=== PATIENT | male | born 1955 | race Caucasian/White ===

== ENCOUNTER 2024-09-22 10:00 | Emergency (ER) | payer MEDICARE, MEDICAID, SELFPAY ==
[2024-09-22 10:02] VITALS: BP 148/84; PULSE 74; TEMP 36.7; O2SAT 94; BMI 26.6
--- NOTE | 2024-09-22 10:04 | ED.GENADUL1 ---
HPI HPI - General Adult General Chief complaint: Fall Stated complaint: OTHER Time Seen by Provider: 09/22/24 10:01 History of Present Illness HPI narrative: 69-year-old male presents from shelter by ambulance for evaluation after a fall. He reportedly fell out of his wheelchair onto grass. He does not seem to have any complaints at all. No further history is obtainable. Related Data Home Medications ?Medication ?Instructions ?Recorded ?Confirmed finasteride 5 mg tablet 5 mg PO DAILY 09/22/24 09/22/24 fluphenazine HCl 5 mg tablet 5 mg PO DAILY 09/22/24 09/22/24 lamotrigine 25 mg tablet 25 mg PO Q12H 09/22/24 09/22/24 lorazepam 0.5 mg tablet 0.5 mg PO DAILY 09/22/24 09/22/24 losartan 50 mg tablet 50 mg PO DAILY 09/22/24 09/22/24 lovastatin 20 mg tablet 20 mg PO DAILY 09/22/24 09/22/24 metoprolol succinate 50 mg 50 mg PO DAILY 09/22/24 09/22/24 tablet,extended release 24 hr omeprazole 20 mg capsule,delayed 20 mg PO DAILY 09/22/24 09/22/24 release polyethylene glycol 3350 17 17 g PO DAILY 09/22/24 09/22/24 gram/dose oral powder (ClearLax) quetiapine 50 mg tablet 50 mg PO DAILY 09/22/24 09/22/24 tamsulosin 0.4 mg capsule 0.4 mg PO BID 09/22/24 09/22/24 Opioid HPI Opioid Management Most Recent Opioid Data: No Data to Display Review of Systems ROS Narrative Not obtainable, psychiatric disorder PFSH [facility] Medical History (Updated 09/22/24 @ 10:23 by Sami Gomez MD) Dermatitis ?L30.9 - Dermatitis, unspecified (ICD-10) Kyphoscoliosis ?M41.9 - Scoliosis, unspecified (ICD-10) Developmental disorder ?F89 - Unspecified disorder of psychological development (ICD-10) Social History Little interest or pleasure in doing things: not at all Feeling down, depressed, or hopeless: not at all Exam Narrative Exam Narrative: Nurses note and vital signs reviewed and patient is not hypoxic. General: The patient appears well and in no apparent distress. Patient is resting comfortably on cart. Skin: Warm, dry, no pallor noted. There is no rash noted. Head: Normocephalic, atraumatic Eye: Normal conjunctiva, no drainage Ears, Nose, Mouth, and Throat: oral mucosa is moist. Nares patent. Cardiovascular: Regular Rate and Rhythm Respiratory: Patient is in no distress, no accessory muscle use, lungs are clear to auscultation, no wheezing, rales or rhonchi Back: non-tender GI: Soft and nontender Musculoskeletal: Tiny abrasion present on the anterior right knee which is old and healing. He has abrasions on the dorsum of his right hand at the base of his 4th and 5th fingers which appear healing as well and not fresh. Neurological: Awake and alert Psychiatric: Cooperative Constitutional Vital Signs, click to edit/add: Last Vital Signs Temp 98.0 F 09/22/24 10:02 Pulse 74 09/22/24 10:02 Resp 20 09/22/24 10:02 BP 148/84 H 09/22/24 10:02 Pulse Ox 94 L 09/22/24 10:02 O2 Del Method Room Air 09/22/24 10:02 Course Vital Signs Vital signs: Vital Signs Temperature 98.0 F 09/22/24 10:02 Pulse Rate 74 09/22/24 10:02 Respiratory Rate 20 09/22/24 10:02 Blood Pressure 148/84 H 09/22/24 10:02 Pulse Oximetry 94 L 09/22/24 10:02 Oxygen Delivery Method Room Air 09/22/24 10:02 Temperature 98.0 F 09/22/24 10:02 Pulse Rate 74 09/22/24 10:02 Respiratory Rate 20 09/22/24 10:02 Blood Pressure 148/84 H 09/22/24 10:02 Pulse Oximetry 94 L 09/22/24 10:02 Oxygen Delivery Method Room Air 09/22/24 10:02 Medical Decision Making MDM Narrative Medical decision making narrative: The patient has no significant injuries from his fall. Findings are discussed with his caregiver and he is able to be released. Differential Diagnosis Differential Diagnosis: Fall Discharge Plan Discharge Chief Complaint: Fall Clinical Impression: Fall Patient Disposition: Home, Self-Care Time of Disposition Decision: 10:23 Condition: Good Mode of Transportation: Private Vehicle Prescriptions / Home Meds: No Action finasteride 5 mg tablet 5 mg PO DAILY fluphenazine HCl 5 mg tablet 5 mg PO DAILY Rx Instructions: at HS lamotrigine 25 mg tablet 25 mg PO Q12H lorazepam 0.5 mg tablet 0.5 mg PO DAILY Rx Instructions: QAM losartan 50 mg tablet 50 mg PO DAILY metoprolol succinate 50 mg tablet extended release 24 hr 50 mg PO DAILY omeprazole 20 mg capsule,delayed release(DR/EC) 20 mg PO DAILY quetiapine 50 mg tablet 50 mg PO DAILY Rx Instructions: @ HS tamsulosin 0.4 mg capsule 0.4 mg PO BID polyethylene glycol 3350 [ClearLax] 17 gram/dose powder 17 g PO DAILY lovastatin 20 mg tablet 20 mg PO DAILY Print Language: Scottish Instructions: Fall Prevention for Older Adults (ED) Referrals: Roland Mott DO [Primary Care Provider] - 1 week
--- NOTE | 2024-09-22 10:12 | PC.NURSE ---
Awake and alert. Patient placed in gown on arrival. No injury noted. Patient denies any pain or injury.
== END 2024-09-22 10:47 | disposition home or self-care (01) ==
PROVIDERS: Emergency Provider Emergency Medicine; PCP Family Medicine
DX: Z04.3 Encounter for examination and observation following other accident (principal); W05.0XXA Fall from non-moving wheelchair, initial encounter
CPT/HCPCS: 99283

== ENCOUNTER 2025-05-31 07:14 | Emergency (ER) | payer MEDICARE, MEDICAID, SELFPAY ==
[2025-05-31] VITALS (30 sets, daily range): BP systolic 97–118; BP diastolic 65–81; PULSE 76–115; TEMP 37.6; O2SAT 92–98; BMI 28.3
--- NOTE | 2025-05-31 07:30 | ECG_ITS ---
[facility] Test Date: 2025-05-31 Pat Name: NALDO MACK Department: Room: - Gender: Male Status Controller: : 1955 Requested By: Order Number: [id number] Reading MD: ISIS TEJEDA M.D. Measurements Intervals [place] Rate: 89 P: 66 DE: 166 QRS: 59 QRSD: 80 T: 19 QT: 344 QTc: 390 Interpretive Statements 1100 Sinus rhythm 1574 with frequent ventricular premature complexes ARTIFACT IN LEAD(S) 9140 abnormal rhythm ECG No previous ECG available for comparison Electronically Signed On 05-31-2025 14:23:34 EST by ISIS TEJEDA M.D.
--- NOTE | 2025-05-31 07:31 | ED.GENADUL1 ---
HPI HPI - General Adult General Chief complaint: Abdominal Pain Stated complaint: POSSIBLE GI BLEED Time Seen by Provider: 05/31/25 07:23 Source: medical record Mode of arrival: ambulance Limitations: language barrier Limitations comment: Thick speech. MRDD History of Present Illness HPI narrative: 69-year-old male presents from a facility for possible GI bleed. He is unable to provide us any history, he has a history of MRDD. Paramedics reported that they were told that he had dark brown emesis yesterday and has had some dark stools. He does not seem to be on any blood thinners. He does not seem to be having any pain. No further history is obtainable Related Data Home Medications ?Medication ?Instructions ?Recorded ?Confirmed finasteride 5 mg tablet 5 mg PO DAILY 09/22/24 09/22/24 fluphenazine HCl 5 mg tablet 5 mg PO DAILY 09/22/24 09/22/24 lamotrigine 25 mg tablet 25 mg PO Q12H 09/22/24 09/22/24 lorazepam 0.5 mg tablet 0.5 mg PO DAILY 09/22/24 09/22/24 losartan 50 mg tablet 50 mg PO DAILY 09/22/24 09/22/24 lovastatin 20 mg tablet 20 mg PO DAILY 09/22/24 09/22/24 metoprolol succinate 50 mg 50 mg PO DAILY 09/22/24 09/22/24 tablet,extended release 24 hr omeprazole 20 mg capsule,delayed 20 mg PO DAILY 09/22/24 09/22/24 release polyethylene glycol 3350 17 17 g PO DAILY 09/22/24 09/22/24 gram/dose oral powder (ClearLax) quetiapine 50 mg tablet 50 mg PO DAILY 09/22/24 09/22/24 tamsulosin 0.4 mg capsule 0.4 mg PO BID 09/22/24 09/22/24 Allergies Allergy/AdvReac Type Severity Reaction Status Date / Time No Known Drug Allergies Allergy Verified 05/31/25 07:17 Review of Systems ROS Narrative Not obtainable, MRDD PFSH [facility] Medical History (Updated 05/31/25 @ 10:30 by Sami Gomez MD) BPH (benign prostatic hyperplasia) ?N40.0 - Benign prostatic hyperplasia without lower urinary tract symptoms (ICD-10) Spinal stenosis ?M48.00 - Spinal stenosis, site unspecified (ICD-10) Congenital hip dysplasia ?Q65.89 - Other specified congenital deformities of hip (ICD-10) Hydronephrosis ?N13.30 - Unspecified hydronephrosis (ICD-10) Neurogenic bladder ?N31.9 - Neuromuscular dysfunction of bladder, unspecified (ICD-10) Urinary retention ?R33.9 - Retention of urine, unspecified (ICD-10) Anxiety ?F41.9 - Anxiety disorder, unspecified (ICD-10) Lordosis of lumbar region ?M40.56 - Lordosis, unspecified, lumbar region (ICD-10) Hyperlipemia ?E78.5 - Hyperlipidemia, unspecified (ICD-10) FH: total knee replacement ?Z82.69 - Family history of other diseases of the musculoskeletal system and connective tissue (ICD-10) GERD (gastroesophageal reflux disease) ?K21.9 - Gastro-esophageal reflux disease without esophagitis (ICD-10) Tardive dyskinesia ?G24.01 - Drug induced subacute dyskinesia (ICD-10) DJD (degenerative joint disease) ?M19.90 - Unspecified osteoarthritis, unspecified site (ICD-10) Arthritis ?M19.90 - Unspecified osteoarthritis, unspecified site (ICD-10) Schizophrenic disorder ?F20.9 - Schizophrenia, unspecified (ICD-10) Dermatitis ?L30.9 - Dermatitis, unspecified (ICD-10) Kyphoscoliosis ?M41.9 - Scoliosis, unspecified (ICD-10) Developmental disorder ?F89 - Unspecified disorder of psychological development (ICD-10) Social History Little interest or pleasure in doing things: not at all Feeling down, depressed, or hopeless: not at all Exam Narrative Exam Narrative: Nurses note and vital signs reviewed General:The patient appears in no acute distress. He is sitting upright and smiles and is interactive. Skin:Warm, dry, no pallor noted.There is no rash noted. Head:Normocephalic, atraumatic Eye: Normal conjunctiva, no drainage Ears, Nose, Mouth, and Throat: oral mucosa is moist. Nares patent. Cardiovascular:Regular Rate and Rhythm Respiratory:Patient is in no distress, no accessory muscle use, lungs are clear to auscultation, no wheezing, rales or rhonchi Back:non-tender, no CVA tenderness bilaterally to percussion. GI: Soft and no apparent tenderness on palpation Musculoskeletal: The patient has no evidence of calf tenderness, no pitting edema, symmetrical pulses noted bilaterally Neurological: He is awake and alert. He smiles and is interactive. He moves all 4 extremities. Psychiatric:Cooperative Constitutional Vital Signs, click to edit/add: Last Vital Signs Temp 99.6 F 05/31/25 07:17 Pulse 82 05/31/25 09:20 Resp 22 H 05/31/25 09:20 BP 101/74 05/31/25 09:00 Pulse Ox 96 05/31/25 09:20 O2 Del Method Nasal Cannula 05/31/25 07:17 O2 Flow Rate 3 05/31/25 07:17 Course Vital Signs Vital signs: Vital Signs Temperature 99.6 F 05/31/25 07:17 Pulse Rate 115 H 05/31/25 07:17 Respiratory Rate 28 H 05/31/25 07:17 Blood Pressure 107/76 05/31/25 07:17 Pulse Oximetry 92 L 05/31/25 07:17 Oxygen Delivery Method Nasal Cannula 05/31/25 07:17 Oxygen Delivery Flow Rate 3 05/31/25 07:17 Temperature 99.6 F 05/31/25 07:17 Pulse Rate 82 05/31/25 09:20 Respiratory Rate 22 H 05/31/25 09:20 Blood Pressure 101/74 05/31/25 09:00 Pulse Oximetry 96 05/31/25 09:20 Oxygen Delivery Method Nasal Cannula 05/31/25 07:17 Oxygen Delivery Flow Rate 3 05/31/25 07:17 Medical Decision Making MDM Narrative Medical decision making narrative: There is no evidence of GI bleed. His stool was negative for blood and CT of the abdomen is negative. The rest of his workup as well is normal and he is able to be released back to his facility. Differential Diagnosis Differential Diagnosis: Upper GI bleed, lower GI bleed Lab Data Lab results reviewed: Yes I reviewed the patient's lab results Labs: Lab Results 05/31/25 05/31/25 05/31/25 Range/Units 07:36 07:41 09:56 WBC 9.4 (4.0-11.0) 10^3/uL RBC 3.88 L (4.70-6.10) 10^6/uL Hgb 11.3 L (14.0-18.0) g/dL Hct 34.7 L (42.0-54.0) % MCV 89.4 (80.0-94.0) fL MCH 29.1 (25.9-34.0) pg MCHC 32.6 (29.9-35.2) g/dL RDW 13.7 (11.0-15.0) % Plt Count 153 (150-450) 10^3/uL MPV 11.4 (9.5-13.5) fL Seg Neuts % (Manual) 87.0 H (43.0-75.0) Lymphocytes % (Manual) 4.0 L (20.5-60.0) % Atypical Lymphs % (Man) 1.0 % Monocytes % (Manual) 8.0 (1.7-12.0) % Eosinophils % (Manual) 0.0 L (0.9-7.0) % Basophils % (Manual) 0.0 L (0.2-2.0) % Neutrophils # (Manual) 8.17 H (1.4-6.5) 10^3/uL Lymphocytes # (Manual) 0.37 L (1.20-3.80) 10^3/uL Abs Atypical Lymphs Man 0.09 Monocytes # (Manual) 0.75 (0.30-0.80) 10^3/uL Eosinophils # (Manual) 0.00 (0.00-0.70) 10^3/uL Basophils # (Manual) 0.00 (0.00-0.10) 10^3/uL Sodium 137 (136-145) mmol/L Potassium 3.9 (3.5-5.1) mmol/L Chloride 102 (98-107) mmol/L Carbon Dioxide 28.9 (21.0-32.0) mmol/L Anion Gap 10.0 BUN 32.0 H (7.0-18.0) mg/dL Creatinine 1.07 (0.70-1.30) mg/dL Est GFR ( Amer) >60 (>=60 mL/min/1.73m^2) Est GFR (Non-Af Amer) >60 (>=60 mL/min/1.73m^2) BUN/Creatinine Ratio 29.9 Glucose 115 H (74-106) mg/dL Calcium 8.1 L (8.5-10.1) mg/dL Total Bilirubin 0.4 (0.2-1.0) mg/dL Direct Bilirubin 0.1 (0.0-0.2) mg/dL AST 26 (15-37) U/L ALT 30 (16-63) U/L Alkaline Phosphatase 172 H (46-116) U/L Total Protein 6.7 (6.4-8.2) g/dL Albumin 3.4 (3.4-5.0) g/dL Globulin 3.3 g/dL Albumin/Globulin Ratio 1.0 Stool Occult Blood Negative Influenza Type A Ag Negative Influenza Type B Ag Negative SARS-CoV-2 Ag (CV2AG) Negative (NEGATIVE) Imaging Data CT scan - abdomen: Radiologist's impression: ITS Impressions Abdomen/Pelvis CTA 05/31/25 08:53 IMPRESSION: NO BOWEL OR URINARY TRACT OBSTRUCTION. GASTRIC DISTENTION. BORDERLINE RECTOSIGMOID WALL THICKENING. THIS MAY RELATE TO INCOMPLETE DISTENTION. SLIGHT URINARY BLADDER WALL THICKENING. CORRELATION IS RECOMMENDED TO EXCLUDE CYSTITIS. NO EVIDENCE OF ACTIVE GI BLEED. CHRONIC APPEARING BONY CHANGES. Impression dictated by: India Villa M.D. 05/31/2025 9:41 AM Dictation Location: [employer] Electronically authenticated by: [id number] Y Date: 05/31/2025 09:41 Chest X-Ray 05/31/25 08:53 IMPRESSION: NO ACUTE FINDINGS Impression dictated by: India Villa M.D. 05/31/2025 9:22 AM Dictation Location: [employer] Electronically authenticated by: [id number] Y Date: 05/31/2025 09:22 ECG Data Attestation: I personally reviewed and interpreted this ECG as follows: (EKG on my interpretation shows sinus rhythm with PVCs.) Discharge Plan Discharge Chief Complaint: Abdominal Pain Clinical Impression: No problem, feared complaint unfounded Patient Disposition: Home, Self-Care Time of Disposition Decision: 10:30 Condition: Good Mode of Transportation: Private Vehicle Prescriptions / Home Meds: No Action finasteride 5 mg tablet 5 mg PO DAILY fluphenazine HCl 5 mg tablet 5 mg PO DAILY Rx Instructions: at HS lamotrigine 25 mg tablet 25 mg PO Q12H lorazepam 0.5 mg tablet 0.5 mg PO DAILY Rx Instructions: QAM losartan 50 mg tablet 50 mg PO DAILY metoprolol succinate 50 mg tablet extended release 24 hr 50 mg PO DAILY omeprazole 20 mg capsule,delayed release(DR/EC) 20 mg PO DAILY quetiapine 50 mg tablet 50 mg PO DAILY Rx Instructions: @ HS tamsulosin 0.4 mg capsule 0.4 mg PO BID polyethylene glycol 3350 [ClearLax] 17 gram/dose powder 17 g PO DAILY lovastatin 20 mg tablet 20 mg PO DAILY Print Language: Sammarinese Instructions: Normal Exam (ED) Referrals: Roland Mott DO [Primary Care Provider] - 1 week
[2025-05-31 07:53] LABS: Hematocrit 34.7 % (42.0-54.0); Hemoglobin 11.3 g/dL (14.0-18.0); Mean Corpuscular HGB Conc 32.6 g/dL (29.9-35.2); Mean Corpuscular Hemoglobin 29.1 pg (25.9-34.0); Mean Corpuscular Volume 89.4 fL (80.0-94.0); Platelet Count 153 10^3/uL (150-450); Red Blood Count 3.88 10^6/uL (4.70-6.10); White Blood Count 9.4 10^3/uL (4.0-11.0)
--- OUTSIDE RECORDS SUMMARY | 2025-05-31 07:53 | XMS_ITS | Clinical Summary ---
Author Organization [facility] Address [id number] [address] [place] [address] Care Team Providers Care Process Supervisor Name Role Phone Roland Mott Primary Care Provider [phone] Allergies No known active allergies Medications MedicationSigDispense QuantityRefillsLast FilledStart DateEnd DateStatus finasteride (PROSCAR) 5 mg tablet Take 1 tablet (5 mg total) by mouth in the morning.Active lamoTRIgine (LaMICtal) 25 mg tablet Take 1 tablet (25 mg total) by mouth in the morning and 1 tablet (25 mg total) before bedtime.Active lovastatin (MEVACOR) 20 mg tablet Take 1 tablet (20 mg total) by mouth nightly.Active omeprazole (PriLOSEC) 20 mg capsule Take 1 capsule (20 mg total) by mouth in the morning.Active tamsulosin (FLOMAX) 0.4 mg capsule,extended release 24hr Take 1 capsule (0.4 mg total) by mouth in the morning and 1 capsule (0.4 mg total) before bedtime.Active HYDROcodone-acetaminophen (NORCO) 5-325 mg per tablet Take 1 tablet by mouth every 6 (six) hours as needed for pain.Active ondansetron (ZOFRAN) 4 mg tablet Take 1 tablet (4 mg total) by mouth every 8 (eight) hours as needed for nausea or vomiting for up to 12 doses. 12 tablet Active naproxen sodium (ALEVE) 220 mg tablet Take 1 tablet (220 mg total) by mouth in the morning and 1 tablet (220 mg total) in the evening. Take with meals.Active fluPHENAZine (PROLIXIN) 5 mg tablet Take 1 tablet (5 mg total) by mouth once daily at bedtime.Active QUEtiapine (SEROquel) 25 mg tablet Take 1.5 tablets (37.5 mg total) by mouth nightly.Active polyethylene glycol (GLYCOLAX) 17 gram packet Take 17 g by mouth in the morning.Active acetaminophen (TYLENOL) 325 mg tablet Take 2 tablets (650 mg total) by mouth every 6 (six) hours as needed for pain. Active chlorhexidine (PERIDEX) 0.12 % solution Apply 15 mL to the mouth or throat 2 (two) times a day. 120 mL 01/03/2021ctive Additional Information Patient taking differently:15 mL mouth/throat 2 times daily,Do not swallow, Reported on 04/03/2023 hypromellose (NATURES TEARS) drops Administer 1 drop to both eyes 2 (two) times a day as needed for dry eyes. 01/03/2021ctive Additional Information Patient not taking.Reported on 04/17/2023 docusate (COLACE) 50 mg/5 mL liquid Use as ear drops to soften excessive cerumen then irrigate as needed for wax build up. 100 mL 01/03/2021ctive alum-mag hydroxide-simeth 225-200-25 mg/5 mL suspension Take 30 mL by mouth daily as needed (upset stomach).ctive LORazepam (ATIVAN) 0.5 mg tablet Indications:AnxietyTake 1 tablet (0.5 mg total) by mouth every morning before breakfast. 30 tablet ctive dextromethorphan polistirex (DELSYM) 30 mg/5 mL liquid Indications:coughTake 10 mL (60 mg total) by mouth every 12 (twelve) hours as needed for cough Indications: cough.Active aluminum-magnesium hydroxide (MAALOX) 200-200 mg/5 mL suspension Take 30 mL by mouth daily as needed for indigestion.Active magnesium hydroxide 400 mg/5 mL suspension Indications:constipationTake 30 mL by mouth daily as needed Indications: constipation.Active clotrimazole (LOTRIMIN) 1 % cream Apply 1 Application topically 2 (two) times a day as needed.Active hydrocortisone (HYTONE) 1 % cream Apply 1 Application topically in the morning and 1 Application before bedtime. Apply to face.Active mupirocin (BACTROBAN) 2 % ointment Apply 1 Application topically 2 (two) times a day as needed.Active camphor-methyl salicyl-menthoL (MUSCLE RUB ULTRA-STRENGTH) 4-30-10 % cream Apply 1 Application topically 4 (four) times a day as needed.Active aspirin 81 mg Take 1 tablet every day by oral route.Active cholecalciferol, vitamin D3, (VITAMIN D3) 2,000 units tablet Take by mouth daily.Active ergocalciferol (DRISDOL) 1,250 mcg (50,000 unit) capsule Take 1 capsule (50,000 Units total) by mouth once a week.Active Active Problems Patient Care Coordination No te Formatting of this note migh t be different from the original. [facility] Lipid and glucose every 6 mo CBC, CMP, TSH, UA, Uric acid, and PSA every 12 mo ProblemNoted DateDiagnosed DateClosed displaced comminuted fracture of shaft of right lqphoex93/31/2023Chronic aaqacplzedxp52/24/2022hronic musculoskeletal pain12/20/2020evere developmental delay08/30/20208576Gqcsjri56/30/2021Neurogenic fjtssgn3308/30/2020Full code ndshmh8908/25/2020epressive hehjnrfu15/16/2021ehavior bddfpnjhpre93/16/5800Yjhbwcwqbxrwk99/16/2021Tardive syujcpgzfg51/16/2021hronic GERD08/16/2020Mixed fgwlngnjwilcqx63/16/1445Ufimsqfsv65/16/2021enign prostatic hyperplasia with urinary nlkakqqsjpx94/30/2015 Resolved Problems ProblemNoted DateDiagnosed DateResolved DateHistory of waxsic8008/30/2020 10/24/2021History of left knee fjxwbqlsdyp25Hip dysplasia Urinary bddrcloje68pinal stenosis Multilevel degenerative disc Qzkxbqiontnezz59eborrheic zhymktkzqj54 Uqjwoncsd03 Encounters DateTypeDepartmentCare AsgoGffkqmfknrs20/01/2025 10:34 PM EDT - 04/04/2025 1:15 AM EDTEmergency [facility] [address] [place] [address] Jim Ram MD Fall, initial encounter (Primary Dx) Discharge Disposition: Home04/03/2025Travelfrom Last 3 Months Immunizations No known immunizations Social History Tobacco UseTypesPacks/DayYears UsedDateSmoking Tobacco: NeverSmokeless Tobacco: NeverAlcohol UseStandard Drinks/WeekCommentsNever0 (1 standard drink = 0.6 oz pure alcohol)Housing InstabilityAnswerDate RecordedAre you worried or concerned that in the next two months you may not have stable housing that you own, rent or stay in as a part of a household?No3ChildcareAnswerDate Recorded CdsxjmtfjFjauzhm70/12/2019EmploymentAnswerDate RecordedEmploymentUnknown 11/12/2018Hunger ScreeningAnswerDate RecordedWithin the past 12 months we worried whether our food would run out before we got money to buy more.Never True04/03/2025Within the past 12 months the food we bought just didn't last and we didn't have money to get more.Never True04/03/2025Purpose - LifeAnswerDate RecordedPurpose and direction in lmhsPcbkblv59/11/2021ex and Gender Information ValueDate RecordedSex Assigned at BirthNot on fileLegal ZqlBamj9201/06/2015 11:28 AM EDTGender IdentityNot on fileSexual OrientationNot on file Last Filed Vital Signs Vital SignReadingTime TakenCommentsBlood Ftxyvbbi05/7104/04/2025 1:15 AM EDT Rcypi307504/04/2025 1:15 AM AGAHixwputhomk97.6 ??C (97.8 ??F)04/03/2025 10:39 PM EDTRespiratory Apju995506/04/2024 1:15 AM EDTOxygen Glsibzoqbj91%04/04/2025 1:15 AM EDTInhaled Oxygen Concentration--Zakpfl57.8 kg (165 lb)04/03/2025 10:39 PM PYRYtadcu326.9 cm (3' 11.99 )05/13/2023 11:06 AM ESTBody Mass Index50.37 05/13/2023 11:06 AM EST Plan of Treatment Health MaintenanceDue DateLast DoneCommentsDepression Ofzvmcggz62/13/1968 DTaP,Tdap and Td Vaccines (1 - Tdap)1974RSV ( or age 60+ yrs) (1 - Risk 50-74 years 1-dose series)2005Zoster (Shingles) Vaccine (1 of 2) 2005Fall Risk Icxkckdwr80/13/2021Tobacco Qpkzgxqto09/11/2024OVID-19 Vaccine ( season)/, 06/28/2020, 06/07/2020 Influenza Vbouhel6102/01/2025dult BMI Mavhcfvzt67/5Colonoscopy Goals GoalPatient Goal TypeAssociated ProblemsRecent ProgressPatient-Stated?Author home Mary Desouza RN Note: Evaluation of progress towards goal: return to [facility] Medical Devices ImplantedTypeAreaManufacturerDevice IdentifierShelf Expiration DateModel / Serial / LotPlate Bn 194mm 8 Hl Precnt Lmt Cntct Tpr Hd Lcp Cmbn - [id number] Implanted:Qty: 1 on 04/04/2023 by [facility] ArmDEPPymetrics [id number] / / Screw Bn 26mm 3.5mm 2[address] St Lck Strdr Cncl Ss T15 Ft Ns Sm Rpl [id number]+Special [id number] - [id number] Implanted:Qty: 4 on 04/04/2023 by [facility] Thing5DEPPymetrics [id number] / / Screw Bn 28mm 3.5mm 2[address] Lck Strdr Cncl Ss T15 Ft Ns Sm Rpl [id number]+Special [id number] - [id number] Implanted:Qty: 1 on 04/04/2023 by [facility]: ArmDEPPymetrics [id number] / / Screw Bn 30mm 3.5mm 2[address] Lck Strdr Cncl Ss T15 Ft Ns Sm Rpl [id number] - [id number] Implanted:Qty: 2 on 04/04/2023 by [facility]: ArmDEPShoeboxed SYNTHES [id number] / / Screw Bn 24mm 3.5mm [address] Lp Hd Sm Hex Sckt [place] Ss 2.5mm Rpl Special [id number] - [id number] Implanted:Qty: 1 on 04/04/2023 by [facility]lin [facility]: [email or web address].comPPymetrics [id number] / / Screw Bn 28mm 3.5mm [address] Lp Sm Hex [place] Ss Ns Rpl [id number] - [id number] Implanted:Qty: 2 on 04/04/2023 by [facility]: CoderBuddy [id number] / / Screw Bn 32mm 3.5mm [address] Lp Sm Hex [place] Ss Ns Rpl [id number] - [id number] Implanted:Qty: 1 on 04/04/2023 by [facility]lin [facility]: TastyNow.comPPymetrics [id number] / / Screw Bn 22mm 2.7mm [address] Strdr [place] Ss Ped T8 Ns Connor [place] - [id number] Implanted:Qty: 1 on 04/04/2023 by [facility]lin [facility]: CoderBuddy [id number] / / Screw Bn 24mm 2.7mm [address] Strdr [place] Ss Ped T8 Ns Connor Mn - [id number] Implanted:Qty: 1 on 04/04/2023 by [facility]lin [facility] CoderBuddy [id number] / / Procedures Procedure NamePriorityDate/TimeAssociated DiagnosisCommentsCT ABDOMEN AND PELVIS WO VIYFIZGL08/01/2025 11:[address] CHEST WO MTCMWTPI41/01/2025 11:[address] CERVICAL SPINE WO MARAEKQF64/01/2025 [address] BRAIN WO JVUDWUKI44/01/2025 11:22 PM EDT from Last 3 Months Results * CT chest without contrast (04/03/2025 11:22 PM EDT)Anatomical RegionLaterality ModalityBody, Lung, Chest, Body CoveraN/AComputed TomographySpecimen (Source) Anatomical Location / LateralityCollection Method / VolumeCollection Time Received Time04/04/2025 12:13 AM EDT Narrative 04/04/2025 12:[address] CHEST WO CONT HISTORY: Fall, chest pain COMPARISON: Chest radiograph 04/02/2023 TECHNIQUE: Multidetector axial CT Chest performed without IV contrast. Sagittal and coronal 2-D reconstructed images were also obtained. Automated exposure control was utilized. All CT scans at this facility use dose modulation, iterative reconstruction, and/or weight based dosing when appropriate to reduce radiation dose to as low as reasonably achievable. FINDINGS: Suboptimal evaluation of the hilar regions and vessels in the absence of IV contrast. Suboptimal evaluation secondary to patient motion/breathing artifact. LOWER NECK: The visualized thyroid is unremarkable. LUNGS/PLEURA: No pneumothorax or pleural effusion. No focal consolidation. Bilateral dependent atelectasis/pleural parenchymal scarring. HEART/VESSELS/MEDIASTINUM: Mild cardiomegaly. No pericardial effusion. Non- aneurysmal thoracic aorta. No significant coronary artery calcifications. No enlarged mediastinal, hilar or axillary lymph nodes. Hiatal hernia. MUSCULOSKELETAL: Bilateral gynecomastia. Advanced degenerative changes of the bilateral glenohumeral joints. Multilevel degenerative changes of the visualized spine. No acute osseous abnormality. UPPER ABDOMEN: See separately dictated same day CT abdomen and pelvis for full discussion of findings below the diaphragm. IMPRESSION: * ??No acute cardiopulmonary process. Approved by Tay Yeh MD ??on 04/04/2025 12:13 AM Suresh Coughlin MD have personally reviewed the image(s) and agree with and/or edited the report Finalized by Suresh Gibson MD on 04/04/2025 12:32 AM Procedure Note Suresh Gibson MD - 04/04/2025 CT CHEST WO CONT HISTORY: Fall, chest pain COMPARISON: Chest radiograph 04/02/2023 TECHNIQUE: Multidetector axial CT Chest performed without IV contrast.Sagittal and coronal 2-D reconstructed images were also obtained.Automated exposure control was utilized. All CT scans at this facility usedose modulation, iterative reconstruction, and/or weight based dosing whenappropriate to reduce radiation dose to as low as reasonably achievable. FINDINGS: Suboptimal evaluation of the hilar regions and vessels in the absence ofIV contrast. Suboptimal evaluation secondary to patient motion/breathingartifact. LOWER NECK: The visualized thyroid is unremarkable. LUNGS/PLEURA: No pneumothorax or pleural effusion. No focal consolidation. Bilateral dependent atelectasis/pleural parenchymal scarring. HEART/VESSELS/MEDIASTINUM: Mild cardiomegaly. No pericardial effusion.Non- aneurysmal thoracic aorta. No significant coronary arterycalcifications. No enlarged mediastinal, hilar or axillary lymph nodes.Hiatal hernia. MUSCULOSKELETAL: Bilateral gynecomastia. Advanced degenerative changes ofthe bilateral glenohumeral joints. Multilevel degenerative changes of thevisualized spine. No acute osseous abnormality. UPPER ABDOMEN: See separately dictated same day CT abdomen and pelvis forfull discussion of findings below the diaphragm. IMPRESSION: * No acute cardiopulmonary process. Approved by Tay Yeh MD on 04/04/2025 12:13 AM Suresh Coughlin MD have personally reviewed the image(s) and agree withand/or edited the report Finalized by Suresh Gibson MD on 04/04/2025 12:32 AM Authorizing ProviderResult TypeResult StatusJim FELIX CT ORDERABLES Final Result * CT abdomen and pelvis without contrast (04/03/2025 11:22 PM EDT)Anatomical RegionLateralityModalityBody, Abdomen, Body CoveraN/AComputed Tomography Specimen (Source)Anatomical Location / LateralityCollection Method / Volume Collection TimeReceived Time04/03/2025 11:50 PM EDT Narrative 04/03/2025 11:[address] ABDOMEN AND PELVIS WITHOUT INTRAVENOUS CONTRAST HISTORY: Fall, pain COMPARISON: None. TECHNIQUE: Axial images through the abdomen and pelvis obtained with coronal and sagittal reformatted images. FINDINGS: Please refer to separate report for chest findings. Assessment compromised without the benefit of intravenous contrast. The liver, spleen, adrenal glands, pancreas, and right kidney are unremarkable.Small left renal cyst. No enlarged abdominal or pelvic lymph nodes. The bladder is slightly distended. Normal appendix. The small and large bowel are of normal caliber with no evidence of bowel wall thickening. No free fluid in the abdomen or pelvis. No free intraperitoneal air. Visualized body wall structures are unremarkable. Severe chronic dysmorphic appearance of the pelvis/hip joints. Dysmorphic appearance of the lumbar spine as well as advanced degenerative changes throughout the visualized thoracolumbar spine. Mild chronic appearing height loss within several thoracolumbar vertebral bodies. IMPRESSION: * ??No convincing acute abnormalities in the abdomen/pelvis, within the limitations of a noncontrast enhanced study. * ??Advanced chronic osseous changes as noted above. All CT scans at this facility use dose modulation, iterative reconstruction, and/or weight based dosing when appropriate to reduce radiation dose to as low as reasonably achievable. Finalized by Suresh Gibson MD on 04/03/2025 11:54 PM Procedure Note Suresh Gibson MD - 04/03/2025 CT ABDOMEN AND PELVIS WITHOUT INTRAVENOUS CONTRAST HISTORY: Fall, pain COMPARISON: None. TECHNIQUE: Axial images through the abdomen and pelvis obtained withcoronal and sagittal reformatted images. FINDINGS: Please refer to separate report for chest findings. Assessment compromised without the benefit of intravenous contrast. The liver, spleen, adrenalglands, pancreas, and right kidney are unremarkable. Small left renalcyst. No enlarged abdominal or pelvic lymph nodes. The bladder is slightly distended. Normal appendix. The small and large bowel are of normalcaliber with no evidence of bowel wall thickening. No free fluid in theabdomen or pelvis. No free intraperitoneal air. Visualized body wallstructures are unremarkable. Severe chronic dysmorphic appearance of thepelvis/hip joints. Dysmorphic appearance of the lumbar spine as well as advanceddegenerative changes throughout the visualized thoracolumbar spine. Mildchronic appearing height loss within several thoracolumbar vertebralbodies. IMPRESSION: * No convincing acute abnormalities in the abdomen/pelvis, within thelimitations of a noncontrast enhanced study. * Advanced chronic osseous changes as noted above. All CT scans at this facility use dose modulation, iterativereconstruction, and/or weight based dosing when appropriate to reduceradiation dose to as low as reasonably achievable. Finalized by Suresh Gibson MD on 04/03/2025 11:54 PM Authorizing ProviderResult TypeResult StatusRynallely Ram MDG CT ORDERABLES Final Result * CT cervical spine without contrast (04/03/2025 11:22 PM EDT)Anatomical Region LateralityModalityMSK, Neuro, Spine, C-spine, Spine CoveraN/AComputed TomographySpecimen (Source)Anatomical Location / LateralityCollection Method / VolumeCollection TimeReceived Time04/04/2025 12:01 AM EDT Narrative 04/04/2025 12:[address] CERVICAL SPINE WITHOUT CONTRAST HISTORY: Fall, pain COMPARISON: None TECHNIQUE: CT cervical spine was performed utilizing thin section CT imaging without contrast. Coronal and sagittal reformatted images were obtained and reviewed. All CT scans at this facility use dose modulation, iterative reconstruction, and/or weight based dosing when appropriate to reduce radiation dose to as low as reasonably achievable. FINDINGS: Chronic appearing corticated osseous irregularity of the dens likely relates to old trauma. Severe chronic degenerative changes in the visualized shoulders. No acute fracture. Multilevel disc relateddegenerative disease in the cervical spine. Facet joints align normally. Craniocervical junction are maintained. The paravertebral soft tissues are unremarkable. IMPRESSION: * ??No acute abnormalities in the cervical spine. 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 Finalized by Suresh Gibson MD on 04/04/2025 12:04 AM Procedure Note Suresh Gibson MD - 04/04/2025 CT CERVICAL SPINE WITHOUT CONTRAST HISTORY: Fall, pain COMPARISON: None TECHNIQUE: CT cervical spine was performed utilizing thin section CTimaging without contrast. Coronal and sagittal reformatted images wereobtained and reviewed. All CT scans at this facility use dose modulation,iterative reconstruction, and/or weight based dosing when appropriate toreduce radiation dose to as low as reasonably achievable. FINDINGS: Chronic appearing corticated osseous irregularity of the dens likelyrelates to old trauma. Severe chronic degenerative changes in thevisualized shoulders. No acute fracture. Multilevel disc relateddegenerative disease in the cervical spine. Facet joints align normally.Craniocervical junction are maintained. The paravertebral soft tissues are unremarkable. IMPRESSION: * No acute abnormalities in the cervical spine. 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 Finalized by Suresh Gibson MD on 04/04/2025 12:04 AM Authorizing ProviderResult TypeResult StatusJim Ram MDIM CT ORDERABLES Final Result * CT brain without contrast (04/03/2025 11:22 PM EDT)Anatomical RegionLaterality ModalityNeuro, Head, Head and Neck, Neuro CoveraN/AComputed TomographySpecimen (Source)Anatomical Location / LateralityCollection Method / VolumeCollection TimeReceived Time04/03/2025 11:30 PM EDT Narrative 04/03/2025 11:32 PM EDT CLINICAL HISTORY: Status post fall, head trauma and pain. TECHNIQUE: ?? Spiral CT of the brain was performed without contrast material. ??All CT scans at this facility use dose modulation, iterative reconstruction, and/or weight based dosing when appropriate to reduce radiation dose to as low as reasonably achievable. COMPARISONS: ??04/05/2023. FINDINGS: The brain appears within normal limits in morphology and attenuation for the patient's stated age of 69 yearsx. ??There is no intracranial mass nor mass effect. ??Ventricular system appearswithin normal limits. ??Basal cisterns and fourth ventricle appear patent. ??No parenchymal nor extra-axial hemorrhage is identified. ??Calvarium appears intact. IMPRESSION: No acute intracranial finding Finalized by Jorden Sebastian MD on 04/03/2025 11:32 PM Procedure Note Jorden Sebastian MD - 04/03/2025 CLINICAL HISTORY: Status post fall, head trauma and pain. TECHNIQUE: Spiral CT of the brain was performed without contrastmaterial. All CT scans at this facility use dose modulation, iterativereconstruction, and/or weight based dosing when appropriate to reduceradiation dose to as low as reasonably achievable. COMPARISONS: 04/05/2023. FINDINGS: The brain appears within normal limits in morphology andattenuation for the patient's stated age of 69 yearsx. There is nointracranial mass nor mass effect. Ventricular system appears withinnormal limits. Basal cisterns and fourth ventricle appear patent. Noparenchymal nor extra-axial hemorrhage is identified. Calvarium appears intact. IMPRESSION: No acute intracranial finding Finalized by Jorden Sebastian MD on 04/03/2025 11:32 PM Authorizing ProviderResult TypeResult StatusJim Ram MDIMG CT ORDERABLES Final Result from Last 3 Months Insurance Advance Directives * Full Code (Latest Code Status on File) Date ActivatedDate UyujimoquqgAzroalrm77/31/2023 8:26 PM04/05/2023 8:13 PM * Full Code Date ActivatedDate InactivatedComments3/ 10:43 AM04/02/2023 9:20 AM Care Teams Team MemberRelationshipSpecialtyStart DateEnd Date Roland Mott DO [address] [facility] [place] [address] PCP - GeneralFamily Uqfwjfwl29/1/23
--- OUTSIDE RECORDS SUMMARY | 2025-05-31 07:53 | XMS_ITS | Clinical Summary ---
Author Organization [facility] Address [address] [facility] [place] [address] Care Team Providers Care Floors Buffer Name Role Phone Unavailable Primary Care Provider Unavailabl e Source Comments The following information is NOT included in Care Everywhere downloads:Psychiatric notes, ECG results, Cardiac Rehab notes, Pulmonary Function notes, data from SmartForms (includes but not limited toPregnancy data,audiograms, eye exams, pre-surgical evaluation notes, well-child exam data).[facility] Allergies No known active allergies Active Problems ProblemNoted DateDiagnosed DateInflammatory twlormnyhd60/08/2025ongenital dysplasia of hip10/08/2024Family history of total knee jnwgujjfwyt69/08/2025 Yxcnihlybnoitc35/08/1250Myuxayxgxnvtpl47/08/2025Lordosis of lumbar region 10/08/2024Retention of urine10/08/2024Fall09/22/2024losed displaced comminuted fracture of shaft of right pxcvwlf0704/02/20234298Bmxutn48/3Chronic constipation /hronic musculoskeletal pain/nxiety Neurogenic /evelopmental pxvtksokua55/30/202109/Full code ouqtai9408/25/2020ehavior disturbance astroesophageal reflux fimfzmj55ysphagia HyperlipidemiaSchizophrenic disorder Tardive pmpcmpkbxy62epressive disorder Incomplete bladder dagsetgi36Spinal fsujcebk42/26/2016Benign prostatic fuskouushsp29/30/2015Urinary incontinence Overview (10/08/2024): Patient first seen 03/27/05 for urinary incontinence. He was diagnosed as having atonic bladder andhad residual urine of 200 ml. At that time he was advised to have cystourethroscopy but did not have done and did not keep follow up appointments. Patient was agitated for months and was seen in the ER and was diagnosed as having urinary retention. 1000 ml of urine was drained. 08/02/10 Cystourethroscopy done showed hypertrophic bladder neck. Patient was seen in our thtjeh09/4/11 and bladder scan showed residual urine 275 ml. Patient was started on Proscar and was to have follow up in six months. Patient has schizophrenia and mental retardation. Patient is not able to communicate. Patient first seen 03/27/05 for urinary incontinence. He was diagnosed as having atonic bladder and had residual urine of 200 ml. At that time he was advised to have cystourethroscopy but did not have done and did not keep follow up appointments. Patient was agitated for months and was seen in the ER and was diagnosed as having urinary retention. 1000 ml of urine was drained. 08/02/10 Cystourethroscopy done showed hypertrophic bladder neck. Patient was seen in our ghefbi13/4/11 and bladder scan showed residual urine 275 ml. Patient was started on Proscar and was to have follow up in six months. Patient has schizophrenia and mental retardation. Patient is not able to communicate. Patient first seen 03/27/05 for urinary incontinence. He was diagnosed as having atonic bladder and had residual urine of 200 ml. At that time he was advised to have cystourethroscopy but did not have done and did not keep follow up appointments. Patient was agitated for months and was seen in theER and was diagnosed as having urinary retention. 1000 ml of urine was drained. 08/02/10 Cystourethroscopy done showed hypertrophic bladder neck. Patient was seen in our evflrh71/4/11 and bladder scan showed residual urine 275 ml. Patient was started on Proscar and was to have follow up in six months. Patient has schizophrenia and mental retardation. Patient is not able to communicate. Immunizations ImmunizationAdministration DatesNext DuePfizer Monovalent (12+ yrs) SARS-COV-2 (COVID-19) vaccine, mRNA, spike protein, LNP, pres. free, 30mcg/0.3mL dose (QJW=567)05/24/2021,06/28/2020,06/07/2020 Social History Tobacco UseTypesPacks/DayYears UsedDateSmoking Tobacco: Never AssessedSex and Gender InformationValueDate RecordedSex Assigned at BirthNot on fileLegal Sex Male07/12/2020 10:46 AM ESTGender IdentityNot on fileSexual OrientationNot on file Last Filed Vital Signs Vital SignReadingTime TakenCommentsBlood Doezieln866/8603/25/2023 12:45 PM EDT Qxove364003/25/2023 12:45 PM ONPNzuuwqywsqj32.6 ??C (97.9 ??F)03/25/2023 12:45 PM EDTRespiratory Miki0808 12:45 PM EDTOxygen Agaohvjnzy20%03/25/2023 12:45 PM EDTInhaled Oxygen Concentration--Acsyqj03 kg (172 lb)03/25/2023 9:10 AM EDT Height--Body Mass Index-- Plan of Treatment Health MaintenanceDue DateLast WlrdFrmcyunsJgmgfejheev71/13/1956Hepatitis C Edtpbdpr95/13/1974Tdap Cayewnu0607/16/1973Hepatitis A (HAV) Vaccine (optional start 19+ years)1974Annual Wellness Visit (G0438)06/03/1992[facility] Screening 2000Cologuard (Stool DNA)2000FIT2000Pneumococcal Vaccine(s) (50+ yrs) (1 of 1 - PCV)2005Shingles (RZV) Vaccine (1 of 2)2005 Hepatitis B (HBV) Vaccine (optional start 60+ years)2015Dental Oral Exam ental Hadpteaaxcn33ental X-Ray: Kaqiavdaq40/, 01/07/2023, 01/07/2023OVID-19 Vaccine ( season)/, 06/28/2020, 06/07/2020Influenza Vaccine (#1) 02/01/20258043Pmeumztkyok61/27/, 05/29/2024, 11/20/2023, Additional history existsRSV vaccine (adult) (1 - 1-dose 75+ series)2030 Procedures Procedure NamePriorityDate/TimeAssociated DiagnosisCommentsPROPHY ADULT 14 & HNUBULlrhaqu49/23/2023 12:00 AM EDTCOMPREHENSIVE ZSIUDfrpdbh22/23/2023 12:00 AM EDTfrom Last 3 Months or Most Recently Relevant to Health Maintenance Insurance [address] [place] [address]
--- OUTSIDE RECORDS SUMMARY | 2025-05-31 07:55 | XMS_ITS | CCD ---
Author Organization [facility] Care Team Providers Care Metal Refiner Name Role Phone RICARDO MAYOPHER Unavailable Unavailable LALO CHRISTOPHER Unavailable Unavailable RENALDO ELKINS Unavailable UnavailRENALDO Osman Unavailable UnavailRenaldo Osman Primary Care Provider MARLENE ELKINS Admitting Unavailab MARLENE Sharp Attending Unavailab le MISC, DOCTOR Primary Care Unavailable MARLENE ELKINS Consulting Unavailab le Lottie RODRIGUEZ - Darío VALADEZ Primary Care Provid er Renaldo Elkins MD Primary Care Provider Darío Dunne APRN, CNP Primary Care Provid er Darío Dunne APRN, CNP Primary Care Provid er Unavailable Primary Care Provider UnavailOSEAS Daly Attending Unavailab le PROVIDER, UNKNOWN Admitting Unavailable ERROL, ANISHA L Referring Unavailable DARÍO CASTRO Primary Care Unavailable ERROL, ANISHA L Referring Unavailable DARÍO CASTRO Primary Care Unavailable ERROL, ANISHA L Referring Unavailable DARÍO CASTRO Primary Care Unavailable KEERTHI GUZMAN Referring Unavailable DARÍO CASTRO Primary Care Unavailable ERROL, ANISHA L Referring Unavailable DARÍO CASTRO Primary Care Unavailable ERRLO, ANISHA L Referring Unavailable DARÍO CASTRO Primary Care Unavailable NICOLE DE Primary Care Unavailable KERI OLIVEROS Attending Unavailable NICOLE DE Referring Unavailable NICOLE DE Primary Care Unavailable Medications Current Medications MedicationDrug Class(es)DatesSig (Normalized)Sig (Original)acetaminophen 325 mg / HYDROcodone bitartrate 5 mg oral tablet (20 sources)Opioid AgonistStart: 63-49-7836cxhw 1 tablet by mouth every six hours as needed for painHYDROcodone-acetaminophen (NORCO) 5-325 MG per tablet Take 1 tablet by mouth every 6 hours as needed for Pain . 15 tablet 05/12/2016 Activealuminum hydroxide 40 mg/ml / magnesium hydroxide 40 mg/ml / simethicone 4 mg/ml oral suspension (20 sources)take 30 mL by mouth once daily as neededaluminum & magnesium hydroxide-simethicone (MAALOX) 200-200-20 MG/5ML SUSP suspension Take 30 mLs by mouth daily as needed ActiveamLODIPine 5 mg oral tablet (1 source)Dihydropyridine Calcium Channel BlockerStart: 00-32-3724wndl 1 tablet by mouth once dailyamLODIPine (NORVASC) 5 MG tablet Indications: Primary hypertension Take 1 tablet by mouth daily 90 tablet 02/18/2025 Activeaspirin 81 mg delayed release oral tablet (20 sources)Platelet Aggregation Inhibitor, Nonsteroidal Anti-inflammatory Drug take 1 tablet by mouth once dailyaspirin 81 MG EC tablet Take 1 tablet by mouth daily Activeaspirin 325 MG EC tablet Take 81 mg by mouth daily. 0 Activebaclofen 5 mg oral tablet (1 source)gamma-Aminobutyric Acid-ergic Agonisttake 2 tablets by mouth three times dailyBaclofen (LIORESAL) 5 MG tablet Take 2 tablets by mouth 3 times daily Activebetamethasone 0.5 mg/ml / clotrimazole 10 mg/ml topical cream (18 sources)Azole Antifungal, Corticosteroidclotrimazole-betamethasone (LOTRISONE) 1-0.05 % cream Apply topically 2 times daily Apply topically2 times daily. Activecalcium chloride 0.0014 meq/ml / potassium chloride 0.004 meq/ml / sodium chloride 0.103 meq/ml / sodium lactate 0.028 meq/ml injectable solution (1 source)Start: 12-68-1191dqpemrac ringers infusionCarboxymethylcellulose (18 sources)Carboxymethylcellulose Sodium (ARTIFICIAL TEARS OP) Apply to eye as needed ActiveCarboxymethylcellulose Sodium (ARTIFICIAL TEARS OP) Apply to eye as needed 0 Activechlorhexidine gluconate 1.2 mg/ml mouthwash (20 sources)Start: 65-08-0912zbilqefmafpzh (PERIDEX) 0.12 % solution 09/04/2011 Activedocusate sodium 10 mg/ml oral suspension (20 sources)docusate (COLACE) 50 MG/5ML liquid Take 5 mLs by mouth as needed Use as ear drops to soften excessive cerumen then irrigate as needed for wax buildup Activedocusate (COLACE) 50 MG/5ML liquid Take 50 mg by mouth as needed. Use as ear drops to soften excessive cerumen then irrigate as needed for wax buildup 0 Activefinasteride 5 mg oral tablet (20 sources)5-alpha Reductase Inhibitortake 1 tablet by mouth once daily finasteride (PROSCAR) 5 MG tablet Take 1 tablet by mouth daily Active fluPHENAZine hydrochloride 5 mg oral tablet (18 sources)PhenothiazineStart: 79-48-9284ikrWPIBGZsge HCl (PROLIXIN) 5 MG tablet daily 07/11/2019 Activehydrocortisone 10 mg/ml topical cream (18 sources)Corticosteroidhydrocortisone 1 % cream Apply topically 2 times daily Apply topically 2 times daily. Activehydrocortisone 1 % cream Apply topically 2 times daily Apply topically 2 times daily. 0 Activehydrocortisone 1 % cream Apply topically 2 times daily Apply topically 2 times daily. 0 ActivelamoTRIgine 25 mg oral tablet (20 sources)Mood Stabilizer, Anti-epileptic Agenttake 1 tablet by mouth twice daily, then take 1 tablet by mouth once daily, then take 0.5 tablet bymouth at bedtimelamotrigine (LAMICTAL) 25 MG tablet Take 1 tablet by mouth 2 times daily 1 tablet daily and 1/2 tabat bedtime Activetake 0.5 tablet by mouth once daily at bedtimelamotrigine (LAMICTAL) 25 MG tablet Take 25 mg by mouth daily. 1 tablet daily and 1/2 tab at bedtime 0 ActiveLORazepam 0.5 mg oral tablet (20 sources)Benzodiazepinetake 1 tablet by mouth once daily, then take 1 tablet by mouth once daily in the morning, then take0.5 tablet by mouth once daily in the eveninglorazepam (ATIVAN) 0.5 MG tablet Take 1 tablet by mouth daily. Take 1 tablet every morning. Take 1/2 tab every evening. Activelosartan potassium 50 mg oral tablet (7 sources)Angiotensin 2 Receptor BlockerStart: 99-28-6783hbfv 1 tablet by mouth once dailylosartan (COZAAR) 50 MG tablet Take 1 tablet by mouth daily 90 tablet 3 06/28/2023 Activelovastatin 20 mg oral tablet (20 sources)HMG-CoA Reductase Inhibitortake 1 tablet by mouth once daily lovastatin (MEVACOR) 20 MG tablet Take 1 tablet by mouth nightly Activeloxapine 10 mg oral capsule (20 sources)take 1 capsule by mouth twice dailyloxapine (LOXITANE) 10 MG capsule Take 1 capsule by mouth 2 times daily Activemagnesium hydroxide 80 mg/ml oral suspension (20 sources)take 30 mL by mouth once daily as neededmagnesium hydroxide (MILK OF MAGNESIA) 400 MG/5ML suspension Take 30 mLs by mouth daily as needed Iqmnrv10 hr metoprolol succinate 50 mg extended release oral tablet (7 sources)beta-Adrenergic BlockerStart: 92-68-7099oeha 1 tablet by mouth once dailymetoprolol succinate (TOPROL XL) 50 MG extended release tablet Indications: Primary hypertension , Frequent PVCs Take 1 tablet by mouth daily 30 tablet 3 07/20/2023 ActiveStart: 39-62-0461qoot 1 tablet by mouth once dailymetoprolol succinate (TOPROL XL) 25 MG extended release tablet Indications: Primary hypertension , Frequent PVCs Take 1 tablet by mouth daily 90 tablet 3 06/28/2023 Activenaproxen sodium 220 mg oral tablet (18 sources)Nonsteroidal Anti-inflammatory Drugtake 1 tablet by mouth twice daily at mealtimenaproxen sodium (ANAPROX) 220 MG tablet Take 1 tablet by mouth 2 times daily (with meals) Activeomeprazole 20 mg delayed release oral capsule (20 sources)Proton Pump Inhibitortake 1 capsule by mouth once dailyomeprazole (PRILOSEC) 20 MG capsule Take 1 capsule by mouth daily Activeondansetron 4 mg oral tablet (18 sources)Serotonin-3 Receptor Antagonisttake 1 tablet by mouth every eight hours as needed for nauseaondansetron (ZOFRAN) 4 MG tablet Take 1 tablet by mouth every 8 hours as needed for Nausea or Vomiting Activepolyethylene glycol 3350 57868 mg powder for oral solution (13 sources)Osmotic Laxativepolyethylene glycol (GLYCOLAX) 17 GM/SCOOP powder Take 17 g by mouth daily ActiveQUEtiapine 25 mg oral tablet (18 sources)Atypical AntipsychoticStart: 22-47-9911RYXsbmvvsv (SEROQUEL) 25 MG tablet Take 1.5 tablets by mouth 07/29/2019 ActiveStart: 21-56-3022VTIhwpagtc (SEROQUEL) 25 MG tablet Take 25 mg by mouth 0 07/29/2019 Active3 ml sodium chloride 9 mg/ml injection (2 sources)Start: 00-14-7742furdbb chloride flush 0.9 % injection 10 mLStart: 15-53-5692puiyhf chloride flush 0.9 % injection 10 mLtamsulosin hydrochloride 0.4 mg oral capsule (20 sources)alpha-Adrenergic Blockertake 1 capsule by mouth twice daily tamsulosin (FLOMAX) 0.4 MG capsule Take 1 capsule by mouth 2 times daily Active take 1 capsule by mouth once dailytamsulosin (FLOMAX) 0.4 MG capsule Take 0.4 mg by mouth daily. 0 Active Completed/Discontinued Medications MedicationDrug Class(es)DatesSig (Normalized)Sig (Original)acetaminophen 500 mg oral tablet (20 sources)Start: 03-25-2023 End: 08-73-7639zdcr 1 tablet by mouth every six hours as needed for pain acetaminophen (TYLENOL) 500 MG tablet Take 1 Tablet by mouth every 6 hours as needed for Pain or Fever. 30 Tablet 0 03/25/2023 03/25/2023 Discontinued (Duplicate (*won't e-cancel))take 2 tablets by mouth every six hours as needed for painacetaminophen (TYLENOL) 325 MG tablet Take 2 tablets by mouth every 6 hours as needed for Pain Activebacitracin zinc 0.4 unt/mg / hydrocortisone acetate 0.01 mg/mg / neomycin sulfate 0.0035 mg/mg / polymyxin b sulfate 10 unt/mg ophthalmic ointment (1 source)Aminoglycoside Antibacterial, Polymyxin-class Antibacterial, Corticosteroid End: 57-20-9883ecjjlsfa-wbivojicjf-ispdhixvh-tildpafvwzkkob (CORTISPORIN) 1 % ophthalmic ointment 2 times daily 0 01/01/2020 Discontinued (LIST CLEANUP)barium sulfate 105 % suspension 1,900 mL (1 source)Start: 01-21-2020 End: 53-50-8616uqmwvd sulfate 105 % suspension 1,900 mLbenztropine mesylate 1 mg oral tablet (3 sources)Anticholinergic, Antihistamine End: 04-86-2516pgvw 1 tablet by mouth twice dailybenztropine (COGENTIN) 1 MG tablet Take 1 mg by mouth 2 times daily. 0 01/01/2020 Discontinued (LIST CLEANUP)ibuprofen 400 mg oral tablet (3 sources)Nonsteroidal Anti-inflammatory DrugStart: 08-10-2016 End: 52-92-8743routpubnq (ADVIL;MOTRIN) 400 MG tablet4 ml labetalol hydrochloride 5 mg/ml cartridge (1 source)beta-Adrenergic BlockerStart: 01-01-2020 End: 95-55-2597jijugjvbg (NORMODYNE;TRANDATE) injection 10 mg24 hr niacin 500 mg extended release oral tablet (3 sources)Nicotinic Acid End: 31-41-8743oeyy 1 tablet by mouth once dailyniacin (NIASPAN) 500 MG CR tablet Take 500 mg by mouth nightly. 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, unspecified]Onset: 527068-54-0130FykrljkNudfxnf dysrhythmias (3 sources)Ventricular premature complex; Translations: [Ventricular premature depolarization]29-46-9317HfwlpdiZytguqetdzwxu disorders (3 sources)Developmental disorder; 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]Onset: 382152-77-9567MrlmbmuVzsqhtwya congenital anomalies (1 source)Congenital redundant colon; 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]Chronic Disorders of lipid metabolism (14 sources)Mixed hyperlipidemia; Translations: [Mixed hyperlipidemia]Onset: 288864-68-1895EfpdmjhI Codes: Fall (2 sources)Fall; Translations: [Unspecified fall, initial encounter]Onset: 624482-41-1648JbtqztsfU Codes: Fall (1 source)FallOnset: 75-73-9380Qzghrjuryu disorders (14 sources)Gastroesophageal reflux disease; Translations: [Gastro-esophageal reflux disease without esophagitis]Onset: 652876-48-5258AmogdwtAuscmywqf hypertension (3 sources)Essential hypertension; Translations: [Essential (primary) hypertension]Onset: 997095-25-2690RiwgszxDdpszotatagtf symptoms and ill- defined conditions (20 sources)Urinary incontinence; Translations: [Unspecified urinary incontinence]Onset: 541986-20-5813YddhcnsWkhtqumibvk of prostate (20 sources)Benign prostatic hyperplasia with lower urinary tract symptoms; Translations: [Benign prostatic hypertrophy with outflow obstruction]Onset: 835509-56-4545ByklhtlRjpqmnlmbnwwx and screening for infectious disease (4 sources)Contact with and (suspected) exposure to other viral communicable diseases; Translations: [CONTCT EXPS OTH VIRL COMMUNICABL DZ]Onset: 12-17-2019 EpisodicMood disorders (12 sources)Depressive disorder; Translations: [Depressive disorder]Onset: 871390-66-2506PvohuxlUnecshuntmhinp (2 sources)Unspecified osteoarthritis, unspecified site; Translations: [Unspecified osteoarthritis, unspecified site]Onset: 19-34-5632HehqfhqSebui acquired deformities (1 source)Unspecified kyphosis, thoracolumbar region; Translations: [UNSPECIFIED KYPHOSIS, THORACOLUMBAR REGION]Onset: 84-34-5627OcoyfppPitlk acquired deformities (1 source)Kyphoscoliosis deformity of spine; Translations: [Scoliosis, unspecified]Onset: 852602-59-7519MxeaicjRguhk acquired deformities (1 source)Lumbar lordosis; Translations: [Lordosis, unspecified, lumbar region] Onset: 162718-87-5287SeyibwvNusbr acquired deformities (2 sources)Scoliosis, unspecified; Translations: [Scoliosis, unspecified]Onset: 19-65-5537FhbykthQzbpj acquired deformities (2 sources)Postural lordosis, lumbar region; Translations: [Postural lordosis, lumbar region]Onset: 96-51-6969QvxjrqkQhrcm acquired deformities (2 sources)Lordosis, unspecified, lumbar region; Translations: [Lordosis, unspecified, lumbar region]Onset: 43-62-1599NqgihihFavfv congenital anomalies (1 source)Congenital hip dysplasia; Translations: [Other specified congenital deformities of hip]Onset: 718974-78-6518NtlkpbtUxtcr congenital anomalies (2 sources)Other specified congenital deformities of hip; Translations: [Other specified congenital deformities of hip]Onset: 85-55-7445EmecqqwPmadj diseases of bladder and urethra (12 sources)Neurogenic bladder; Translations: [Neuromuscular dysfunction of bladder, unspecified]Onset: 446925-53-6569VidyeyrSlzwq diseases of bladder and urethra (2 sources)Neuromuscular dysfunction of bladder, unspecified; Translations: [Neuromuscular dysfunction of bladder, unspecified]Onset: 53-05-6484UwpfcncJrzgj diseases of kidney and ureters (1 source)Hydronephrosis; Translations: [Unspecified hydronephrosis]Onset: 831229-48-6011LqhfzaylXkhmp screening for suspected conditions (not mental disorders or infectious disease) (5 sources)Electrocardiogram abnormal; Translations: [Abnormal electrocardiogram [ECG] [EKG]]Onset: 535085-24-2592VtovoqyrJdbon skin disorders (1 source)Inflammatory dermatosis; Translations: [Disorder of the skin and subcutaneous tissue, unspecified]Onset: 402325-27-5314YuhhtmdhTgtpgfnl codes; unclassified (1 source)Family history of cancer of colon; Translations: [Family history of colon cancer in father]EpisodicResidual codes; unclassified (1 source)Family history of replacement of total knee joint; Translations: [Family history of other diseases of the musculoskeletal system and connective tissue]Onset: 718234-74-6181KpmolxcmPtihjagamiuhv and other psychotic disorders (16 sources)Schizophrenia; Translations: [Schizophrenia, unspecified]Onset: 749345-36-2712CuuxniuLuscuhcqufg; intervertebral disc disorders; other back problems (2 sources)Other intervertebral disc displacement, thoracolumbar region; Translations: [Other intervertebral disc displacement, lumbosacral region]Onset: 21-99-2230OwdqbtaFpacoigqlqql (2 sources)Unknown / UNK(Unknown)Onset: 79-59-6529Uukmmscvkmgv (1 source)Patient encounter status; Translations: [Preop testing]Unclassified (2 sources)Benign localized hyperplasia of prostate with urinary obstruction and other lower urinary tract symptoms (LUTS)(600.21)Onset: Unclassified (1 source)EMSOnset: 04-03-2025 Past or Other Problems Problem ClassificationProblemDateDocumented DateEpisodic/ChronicDeficiency and other anemia (2 sources)Anemia, unspecified; Translations: [Anemia, unspecified]Onset: 07-07-0618GekozkgxWcqtkkuwz of teeth and jaw (14 sources)Dental caries; Translations: [Dental caries, unspecified]Onset: 234630-77-1270MegevmvzCssidgcc of upper limb (1 source)Closed fracture of shaft of humerus; Translations: [Displaced comminuted fracture of shaft of humerus, right arm, initial encounter for closed fracture]Onset: 321667-85-4087AwtrbqxwVsphpejrfiier symptoms and ill- defined conditions (20 sources)Incomplete emptying of bladder; Translations: [Retention of urine, unspecified]Onset: 121880-11-9564DpbtdkffNwzia aftercare (2 sources)Other middle or intermediate school principal (current) drug therapy; Translations: [Other middle or intermediate school principal (current) drug therapy]Onset: 92-11-5540SgsgrusgRusgg connective tissue disease (12 sources)Chronic musculoskeletal pain; Translations: [Myalgia, other site] Onset: 744932-75-7712NtvfhybcQopsj gastrointestinal disorders (12 sources)Chronic constipation; Translations: [Other constipation]Onset: 428126-68-9097BxbduopoOpmnr gastrointestinal disorders (12 sources)Dysphagia; Translations: [Dysphagia, unspecified]Onset: 08-16-2020 61-17-0508VnmzsfvpNidsj hereditary and degenerative nervous system conditions (12 sources)Tardive dyskinesia; Translations: [Drug induced subacute dyskinesia] Onset: 831012-49-1394JdvedizpLhknz hereditary and degenerative nervous system conditions (2 sources)Drug induced subacute dyskinesia; Translations: [Drug induced subacute dyskinesia]Onset: 75-89-8720MohenuavKnnwv nutritional; endocrine; and metabolic disorders (11 sources)Developmental delay; Translations: [Unspecified lack of expected normal physiological development in childhood]Onset: 495774-39-5980 EpisodicResidual codes; unclassified (1 source)For resuscitation; Translations: [Other specified health status]Onset: 030619-60-7919SjdfupyfLenlnicfjnu; intervertebral disc disorders; other back problems (9 sources)Low back pain; Translations: [Spinal stenosis, thoracic region]Onset: 987481-90-2146Esdjfnjd Results Test NameValueInterpretationReference RangeFacilityCT CERVICAL SPINE WO CONTon 85-76-2540SX CERVICAL SPINE WO CONTCT CERVICAL SPINE WO CONT CT CERVICAL SPINE WITHOUT CONTRAST HISTORY: Fall, [...] by Suresh Gibson MD on 04/04/2025 12:04 AMNormalMarietta Osteopathic Clinicca [facility] HospitalCT CHEST WO CONTon 35-03-4059GF CHEST WO CONTCT CHEST WO CONT CT CHEST WO CONT HISTORY: Fall, chest [...] Tay Yeh MD on 04/04/2025 12:13 AM I, Suresh Gibson MD have personally reviewed the image(s) and agree with and/or edited the report Finalized by Suresh Gibson MD on 04/04/2025 12:32 AMNormalProWilson Memorial Hospitalca [facility] HospitalCT ABDOMEN AND PELVIS WO CONTon 19-10-0404HO ABDOMEN AND PELVIS WO CONT CT ABDOMEN AND PELVIS WO CONT CT ABDOMEN AND PELVIS WITHOUT INTRAVENOUS CONTRAST [...] within several thoracolumbar vertebral bodies. IMPRESSION: * No convincing acute abnormalities in the abdomen/pelvis, within the limitations of a noncontrast enhanced study. * Advanced chronic osseous changes as noted above. All CT scans at this facility use dose modulation, iterative reconstruction, and/or weight based dosing when appropriate to reduce radiation dose to as low as reasonably achievable. Finalized by Suresh Gibson MD on 04/03/2025 11:54 PMNDayton Children's HospitalCT BRAIN WO CONTon 31-11-5364KO BRAIN WO CONTCT BRAIN WO CONT CLINICAL HISTORY: Status post fall, head trauma and pain. TECHNIQUE: Spiral CT of the brain was performed without contrast material. All CT scans at this facility use dose modulation, iterative reconstruction, and/or weight based dosing when appropriate to reduce radiation dose to as low as reasonably achievable. COMPARISONS: 04/05/2023. FINDINGS: The brain appears within normal limits in morphology and attenuation for the patient's stated age of 69 yearsx. There is no intracranial mass nor mass effect. Ventricular system appears within normal limits. Basal cisterns and fourth ventricle appear patent. No parenchymal nor extra-axialhemorrhage is identified. Calvarium appears intact. IMPRESSION: No acute intracranial finding Finalized by Jorden Sebastian MD on 04/03/2025 11:32 PMNDayton Children's HospitalLipid Panelon 71-10-9484Xzepnngucco [Mass/Vol]119 mg/dL0 - 199 mg/dLBon [facility] [employer] [facility] HospitalComment on above: Cholesterol Guidelines: <200 Desirable 200-240 Borderline >240 Undesirable Cholesterol in HDL [Mass/Vol]31 mg/dLLow40 - PINF mg/dLBon [facility] [employer] Comment on above: HDL Guidelines: <40 Undesirable 40-59 Borderline >59 Desirable Cholesterol in LDL [Mass/Vol]67 mg/dL0 - 100 mg/dLBon [facility] Comment on above: LDL Guidelines: <100 Desirable 100-129 Near to/above Desirable 130-159 Borderline >159 Undesirable Direct (measured) LDL and calculated LDL are not interchangeable tests. Cholesterol in VLDL [Mass/Vol]21 mg/dL1 - 30 mg/dLBon [facility] Cholesterol.total/Cholesterol in HDL [Mass ratio]3.8 {ratio}NINF - 5.0Bon [facility] EndoSphereInterpretation and review of laboratory resultsAbnormalBon Memorial Health SystemTriglyceride [Mass/Vol]105 mg/dLNINF - 150 mg/dLBon [facility] [employer] [facility] HospitalComment on above: Triglyceride Guidelines: <150 Desirable 150-199 Borderline 200-499 High >499 Very high Based on AHA Guidelines for fasting triglyceride, March 2012. Caleb Galicia [facility] HospitalLipid Profileon 18-82-9039Gzxecmmfskp [Mass/Vol]119 mg/dLNormal0-199[facility] HospitalComment on above:Result Comment: Cholesterol Guidelines: <200 Desirable 200-240 Borderline >240 UndesirablePerformed By: #### GLU #### [address] [place] [id number] Transplant Rn: Brandon Ku MD #### LIPR #### [address] [id number] Transplant Rn: Nicola Michaels MDCholesterol in HDL [Mass/Vol]31 mg/dLLow>40[facility] HospitalComment on above:Result Comment: HDL Guidelines: <40 Undesirable 40-59 Borderline >59 DesirablePerformed By: #### GLU #### [address] [place] [id number] Transplant Rn: Brandon Ku MD #### LIPR #### [address] [address] Transplant Rn: RAS Leaholesterol in LDL [Mass/Vol]67 mg/dLNormal0-100 [facility] Hospitalment on above:Result Comment: LDL Guidelines: <100 Desirable 100-129 Near to/above Desirable 130-159 Borderline >159 Undesirable Direct (measured) LDL and calculated LDL are not interchangeable tests.Performed By: #### GLU #### [address] [place] [address] Transplant Rn: Brandon Ku MD #### LIPR #### [address] [id number] Transplant Rn: Nicola Michaels MDCholesterol in VLDL [Mass/Vol]21 mg/dLNormal1-30 [facility] HospitalComment on above:Performed By: #### GLU #### [address] [place], [place] [id number] Transplant Rn: Brandon Ku MD #### LIPR #### [address] [address] Transplant Rn: RAS Leaholesterol.total/Cholesterol in HDL [Mass ratio]3.8 {ratio}Normal<5.0[facility] HospitalComment on above:Performed By: #### GLU #### [address] [place], [place] [id number] Transplant Rn: Brandon Ku MD #### LIPR #### [address] [address] Transplant Rn: Nicola Michaels MDTriglyceride [Mass/Vol]105 mg/dLNormal<150[facility] HospitalComment on above:Result Comment: Triglyceride Guidelines: <150 Desirable 150-199 Borderline 200-499 High >499 Very high Based on AHA Guidelines for fasting triglyceride, March 2012.Performed By: #### GLU #### [address] [place] [address] Transplant Rn: Brandon Ku MD #### LIPR #### [address] [address] Transplant Rn: Nicola Michaels MDGlucoseon 69-26-5937Axxujxh [Mass/Vol]154 mg/dL Hwcb01-09YijtnAdams County HospitalComment on above:Performed By: #### GLU #### [address] [place], [place] [id number] Transplant Rn: Brandon Ku MD #### LIPR #### [address] [address] Transplant Rn: Nicola Michaels MDGlucose, Randomon 91-53-9784Jesystz [Mass/Vol] 154 mg/mMEvap53 - 99 mg/dLBon Memorial Health SystemInterpretation and review of laboratory resultsAbnormalBon [facility] SystemBon [facility] Progress Noteson 50-80-4695Rvmlqjmkvpfmw Authentication Interface Message Text ----- October at 1:22:42 PM ----- ----- Provider: Chaitanya Samson DDS -- Clinic: [place] [address] ----- OR EVALUATION Patient presents for evaluation to determine best course of treatment due to history of Lordosis, schizophrenia, developmental delay Patient is accompanied by caregiver for today's appointment. Patient partially cooperated for a partial intraoral exam. Clinical findings: caries, signs of periodontitis and Missing teeth. Extremely poor [place], instructed caregivers to assist in brushing and flossing. It is best suited that this patient have full comprehensive examination, radiographs and treatment completed in the OR setting. Provided consent form for guardian and instructions on how to fax it over. Explained that the patient will be added to our OR waiting list, and the legal guardian will be contacted once a time slot becomes available. Legal Guardian: Alternate Formation Fracturing Operator Grace Sanders Next Visit: OR ----- Signed on October at 1:27:11 PM ----- ----- Provider: Chaitanya Samson DDS -- [facility] -----NormalThe MetroMer[facility] SystemComp Metabolic Profon [id number] [Mass/Vol]4.0 g/dL Normal3.5-5.2Bon Memorial Health SystemComment on above:Performed By: #### PSAS #### [employer] [address] [place] [address] Transplant Rn: Nicola Michaels MD #### TSH, CP #### [facility] [address] [place] [address] Transplant Rn: Brandon Ku, MDAlbumin/Glob Ratio1.9Snkhxe3.0-2.5[facility] HospitalCommackinac straits hospital on above:Performed By: #### PSAS #### [address] [address] Transplant Rn: Nicola Michaels MD #### TSH, CP #### [address] [place], [place] [address] Transplant Rn: Nas Gan Iqyq829 U/ITtyd48-526ZrbgsSelect Medical Trihealth Rehabilitation HospitalCommackinac straits hospital on above:Performed By: #### PSAS #### [address] [address] Transplant Rn: Nicola Michaels MD #### TSH, CP #### [address] [place] [address] Transplant Rn: Brandon Ku MDALT [Catalytic activity/Vol]13 U/XXezknu17-05Zsm [facility] on above:Performed By: #### PSAS #### [address] [address] Transplant Rn: Nicola Michaels MD #### TSH, CP #### [address] [place] [address] Transplant Rn: Alondra Gan gap [Moles/Vol]10 mmol/LNormal9-16Bon SecMercy Health Tiffin HospitalCommackinac straits hospital on above:Performed By: #### PSAS #### [address] [address] Transplant Rn: Nicola Michaels MD #### TSH, CP #### [address] [place] [address] Transplant Rn: Brandon Ku MDAST [Catalytic activity/Vol]20 U/JZmnpxz81-65Kxz SecCincinnati [facility]'s Hospital Medical Center on above:Performed By: #### PSAS #### [address] [address] Transplant Rn: Nicola Michaels MD #### TSH, CP #### [address] [place], [place] [address] Transplant Rn: Brandon Ku MDBilirubin [Mass/Vol]0.2 mg/dLNormal0.00-1.20Bon [facility] HospitalComment on above:Performed By: #### PSAS #### [address] [address] Transplant Rn: Nicola Michaels MD #### TSH, CP #### [address] [place], [place] [address] Transplant Rn: Brandon Ku MDBUN/CRE Xstco36Qwcxob5-35Hrxtq [facility] Comment on above:Performed By: #### PSAS #### [address] [address] Transplant Rn: Nicola Michaels MD #### TSH, CP #### [address] [place] [address] Transplant Rn: Brandon Ku MDCalcium [Mass/Vol]9.1 mg/dLNormal8.6-10.4Bon [facility]Cincinnati [facility] Hospital Medical Center on above:Performed By: #### PSAS #### [address] [address] Transplant Rn: Nicola Michaels MD #### TSH, CP #### [address] [place], [place] [address] Transplant Rn: RAS Ganhloride [Moles/Vol]103 mmol/CZvtuqi29-398Jgv SecMercy Health Tiffin HospitalComment on above:Performed By: #### PSAS #### [address] [address] Transplant Rn: Nicola Michaels MD #### TSH, CP #### [facility] [address] [place] [address] Transplant Rn: RAS GanO2 [Moles/Vol]23 mmol/DWdxgnu96-84Qfd [facility] on above:Performed By: #### PSAS #### [address] [place] [address] Transplant Rn: Nicola Michaels MD #### TSH, CP #### [address] [place] [address] Transplant Rn: RAS Ganreatinine [Mass/Vol]0.7 mg/dLNormal0.70-1.20Bon [facility] on above:Performed By: #### PSAS #### [address] [address] Transplant Rn: Nicola Michaels MD #### TSH, CP #### [address] [place] [address] Transplant Rn: Brandon Ku MDGFR/1.73 sq M.predicted among non-blacks MDRD (S/P/Bld) [Vol rate/Area]mL/min/{1.73_m2}Normal>60[facility] on above:Result Comment: These results are not intended for use in patients <18 years of age. eGFR results are calculated without a race factor using the 2020 CKD-EPI equation. Careful clinical correlation is recommended, particularly when comparing to results calculated using previous equations. The CKD-EPI equation is less accurate in patients with extremes of muscle mass, extra-renal metabolism of creatine, excessive creatine ingestion, or following therapy that affects renal tubular secretion.Performed By: #### PSAS #### [facility] [employer] [facility] [place] [address] Transplant Rn: Nicola Michaels MD #### TSH, CP #### [address] [place], [place] [address] Transplant Rn: Brandon Ku MDGlucose [Mass/Vol]111 mg/eXCvhl48-37Kes [facility] on above:Performed By: #### PSAS #### [address] [address] Transplant Rn: Nicola Michaels MD #### TSH, CP #### [address] [place], [place] 8339683 Transplant Rn: GREGORIO Ganotassium [Moles/Vol]4.3 mmol/LNormal3.7-5.3Bon [facility] on above:Performed By: #### PSAS #### [address] [address] Transplant Rn: Nicola Michaels MD #### TSH, CP #### [address] [place], [place] [address]83 Transplant Rn: GREGORIO Ganrotein [Mass/Vol]6.7 g/dLNormal6.6-8.7Bon [facility] on above:Performed By: #### PSAS #### [address] [address] Transplant Rn: Nicola Michaels MD #### TSH, CP #### [address] [place], [place] 437[address] Transplant Rn: Brandon Ku MDSodium [Moles/Vol]136 mmol/PLassbp455-871Fhy [facility] on above:Performed By: #### PSAS #### [address] [address] Transplant Rn: Nicola Michaels MD #### TSH, CP #### [address] [place] [address] Transplant Rn: Brandon Ku MDUrea nitrogen [Mass/Vol]14 mg/dLNormal8-23Bon [facility] on above:Performed By: #### PSAS #### [facility] [address] [place], [place] 147[address] Transplant Rn: Nicola Michaels MD #### TSH, CP #### [facility] [address] [place] [address] Transplant Rn: Brandon Ku [facility]SAomprehensive Metabolic Panelon 06-18-2024 Albumin/Globulin [Mass ratio]1.5 {ratio}1.0 - 2.5Bon Memorial Health SystemALP [Catalytic activity/Vol]141 U/LHigh40 - 129 U/LBon Memorial Health SystemEst, Glom Filt Rate- PINFBon [facility] on above: These results are not intended for use in patients <18 years of age. eGFR results are calculated without a race factor using the 2020 CKD-EPI equation. Careful clinical correlation is recommended, particularly when comparing to results calculated using previous equations. The CKD-EPI equation is less accurate in patients with extremes of muscle mass, extra-renal metabolism of creatine, excessive creatine ingestion, or following therapy that affects renal tubular secretion. Interpretation and review of laboratory resultsAbnormalSouthside Regional Medical Center Urea nitrogen/Creatinine [Mass ratio]20 mg/mg9 - 20Bon [facility] Health SystemNo Panel Informationon [id number] [facility] Screeningon 06-18-2024 Prostate specific Ag [Mass/Vol]1.92 ng/mL0.00 - 4.00 ng/mLShenandoah Memorial Hospital on above:The Yakelin ECLIA assay is used. Results obtained with different assay methods cannot be used interchangeably. Bon [facility] HospitalA, Screeningon 14-07-0566Fvgecwxsf Spec. Ag1.92 ng/mL Normal0.00-4.00[facility] on above:Result Comment: The Yakelin ECLIA assay is used. Results obtained with different assay methods cannot be used interchangeably.Performed By: #### PSAS #### [facility] [employer] [address] [place], [place] [id number] Transplant Rn: Nicola Michaels MD #### TSH, CP #### [address] [place] [address] Transplant Rn: Brandon Ku MDHon 20-67-2854XQB Qn1.76 m[IU]/LBon SecMercy Health Tiffin HospitalThyroid Stim. Horm.on 11-55-8030Eophpgj Stim. Horm.1.76 uIU/mLNormal 0.27-4.20[facility] HospitalComment on above:Performed By: #### PSAS #### [facility] [employer] [facility] [place], [place] [address] Transplant Rn: Nicola Michaels MD #### TSH, CP #### [address] [place] [address] Transplant Rn: Brandon Ku [facility] with Auto Differentialon [id number] (Bld) [#/Vol]0.04 10*3/uLBon Memorial Health SystemBasophils/100 WBC (Bld)1 %0 - 2 %[facility] Medical CenterEosinophils (Bld) [#/Vol][facility] Eosinophils/100 WBC (Bld)0 %Low1 - 4 %[facility] Medical CenterErythrocyte distribution width (RBC) [Ratio]14.3 %11.8 - 14.4 %[facility] Hematocrit (Bld) [Volume fraction]42.6 %40.7 - 50.3 %[facility] Hemoglobin (Bld) [Mass/Vol]13.9 g/dL13.0 - 17.0 g/dLBon SecMercy Health [facility]iff[facility] Hospital Immature granulocytes (Bld) [#/Vol]Bon [facility] Health SystemImmature granulocytes/100 WBC (Bld)0 %0Bon [facility]y [facility] HospitalInterpretation and review of laboratory resultsAbnormalBon [facility] Hospitaly [facility] HospitalLymphocytes/100 WBC (Bld)27 %24 - 43 %[facility] Medical CenterLymphocytes/100 WBC (Bld)1.47 %[facility] HospitalH (RBC) [Entitic mass]28.3 pg25.2 - 33.5 pgBon [facility] HospitalHC (RBC) [Mass/Vol]32.6 g/dL28.4 - 34.8 g/dLBon SecCleveland Clinic Akron General Lodi HospitalV (RBC) [Entitic vol]86.8 fL82.6 - 102.9 fLBon Memorial Health SystemMonocytes/100 WBC (Bld)10 %3 - 12 %Bon [facility] SystemMonocytes/100 WBC (Bld)0.57 %Bon [facility] SystemNeutrophils/100 WBC (Bld)62 %36 - 65 %Bon [facility] SystemNucleated RBC/100 WBC (Bld) [Ratio]0.0 %0.0 per 100 WBCBon Memorial Health SystemPlatelet mean volume (Bld) [Entitic vol]11.2 fL8.1 - 13.5 fLBon [facility] HealthPlatelets (Bld) [#/Vol]179 10*3/uLBon Memorial Health SystemRBC (Bld) [#/Vol]4.91 10*6/uL4.21 - 5.77 m/uLSouthside Regional Medical CenterSegmented neutrophils/100 WBC (Bld)3.44 %[facility] Medical CenterWBC other (Bld) [#/Vol] 5.5Bon SecAurora Medical CenterCBC with Diffon 05-29-2024 Abs. Basophil0.04 k/uLNormal0.00-0.20[facility] Rehabilitation HospitalComment on above: Performed By: #### URI, GLU, CDP #### [facility] [address] [place] [address] Transplant Rn: Brandon Ku MD #### LIPR #### [address] [place] [address] Transplant Rn: Pietro Lea. Eosinophil<0.14Ckhbgz4.00-0.44[facility] Rehabilitation HospitalComment on above:Performed By: #### URI, GLU, CDP #### [address] [place] [address] Transplant Rn: Brandon Ku MD #### LIPR #### [address] [address] Transplant Rn: Pietro Lea.Imm.Granulocyte<0.75Ncgpux6.00-0.30[facility] Rehabilitation HospitalComment on above:Performed By: #### URI, GLU, CDP #### [address] [place] [address] Transplant Rn: Brandon Ku MD #### LIPR #### [address] [address] Transplant Rn: Pietro Lea.Neutrophil (Seg)3.44 k/uLNormal1.50-8.10 [facility] HospitalComment on above:Performed By: #### URI, GLU, CDP #### [address] [place] [address] Transplant Rn: Brandon Ku MD #### LIPR #### [address] [address] Transplant Rn: Nicola Michaels MDBasophils/100 WBC (Bld)1 %Normal0-2[facility] Central ConnecticutComment on above:Performed By: #### URI, GLU, CDP #### [address] [place], [place] [address] Transplant Rn: Brandon Ku MD #### LIPR #### [address] [address] Transplant Rn: Nicola Michaels MDEosinophils/100 WBC (Bld)0 %Low1-4[facility] HospitalComment on above:Performed By: #### URI, GLU, CDP #### [address] [place], [place] 7296[address] Transplant Rn: Brandon Ku MD #### LIPR #### [address] [id number] Transplant Rn: Nicola Michaels MDErythrocyte distribution width (RBC) [Ratio]14.3 %Ihhdsj04.8-14.4[facility] HospitalComment on above:Performed By: #### URI, GLU, CDP #### [address] [place] [address] Transplant Rn: Brandon Ku MD #### LIPR #### [address] [id number] Transplant Rn: Nicola Michaels MDHematocrit (Bld) [Volume fraction]42.6 %Normal 40.7-50.3Mohiohealth southeastern medical centery The Hospital Of Central ConnecticutComment on above:Performed By: #### URI, GLU, CDP #### [address] [place] [address] Transplant Rn: Brandon Ku MD #### LIPR #### [address] [id number] Transplant Rn: Nicola Michaels MDHemoglobin (Bld) [Mass/Vol]13.9 g/dLNormal 13.0-17.0[facility] HospitalComment on above:Performed By: #### URI, GLU, CDP #### [address] [place] [address] Transplant Rn: rBandon Ku MD #### LIPR #### [address] [id number] Transplant Rn: Nicola Michaels MDImmature granulocytes/100 WBC (Bld)0 %Normal0 [facility] HospitalComment on above:Performed By: #### URI, GLU, CDP #### [address] [place], [place] 3797[address] Transplant Rn: Brandon Ku MD #### LIPR #### [address] [address] Transplant Rn: Nicola Michaels MDLymphocytes (Bld) [#/Vol]1.47 10*3/uLNormal 1.10-3.70[facility] HospitalComment on above:Performed By: #### URI, GLU, CDP #### [address] [place] [address] Transplant Rn: Brandon Ku MD #### LIPR #### [address] [address] Transplant Rn: Khadijah Leamphocytes/100 WBC (Bld)27 %Tuaphh38-05EliubSelect Medical Trihealth Rehabilitation HospitalCommackinac straits hospital on above:Performed By: #### URI, GLU, CDP #### [address] [place] [address] Transplant Rn: Brandon Ku MD #### LIPR #### [address] [address] Transplant Rn: DON LeaCH (RBC) [Entitic mass]28.3 taEatjas59.2-33.5 [facility] on above:Performed By: #### URI, GLU, CDP #### [address] [place], [place] [address] Transplant Rn: Brandon Ku MD #### LIPR #### [address] [address] Transplant Rn: BERNADETTE LeaC (RBC) [Mass/Vol]32.6 g/gNXesnsq03.4-34.8 [facility] HospitalComment on above:Performed By: #### URI, GLU, CDP #### [address] [place] [address] Transplant Rn: Brandon Ku MD #### LIPR #### [place] [address] Transplant Rn: DON LeaCV (RBC) [Entitic vol]86.8 fEAzlqqu75.6-102.9 [facility] HospitalComment on above:Performed By: #### URI, GLU, CDP #### [address] [place] [address] ( Transplant Rn: Brandon Ku MD #### LIPR #### [place] [address] Transplant Rn: DON Leaonocytes (Bld) [#/Vol]0.57 10*3/uLNormal 0.10-1.20[facility] HospitalComment on above:Performed By: #### URI, GLU, CDP #### [address] [place] [address] Transplant Rn: Brandon Ku MD #### LIPR #### [place] [address] Transplant Rn: DON Leaonocytes/100 WBC (Bld)10 %Normal3-12[facility] HospitalComment on above:Performed By: #### URI, GLU, CDP #### [address] [place] [address] ( Transplant Rn: Brandon Ku MD #### LIPR #### [place] [address] Transplant Rn: Nicola Michaels MDNeutrophil (Seg)62 %Gnayoq46-28UndbgSelect Medical Trihealth Rehabilitation HospitalComment on above:Performed By: #### URI, GLU, CDP #### [address] [place] [address] ( Transplant Rn: Brandon Ku MD #### LIPR #### [address] [id number] Transplant Rn: Nicola Michaels MDNRBC Automated0.0 per 100 WBCNormal0.0[facility] Rehabilitation HospitalComment on above:Performed By: #### URI, GLU, CDP #### [address] [place] [address] Transplant Rn: Brandon Ku MD #### LIPR #### [address] [id number] Transplant Rn: Ignacia Lea mean volume (Bld) [Entitic vol]11.2 fL Normal8.1-13.5[facility] Rehabilitation HospitalComment on above:Performed By: #### URI, GLU, CDP #### [address] [place] [address] ( Transplant Rn: Brandon Ku MD #### LIPR #### [address] [address] Transplant Rn: Kayla Lea (Bld) [#/Vol]179 10*3/pRXrrbuj661-721 [facility] HospitalComment on above:Performed By: #### URI, GLU, CDP #### [address] [place] [address] Transplant Rn: Brandon Ku MD #### LIPR #### [address] [address] Transplant Rn: RAJNI Lea (Bld) [#/Vol]4.91 10*6/uLNormal4.21-5.77 [facility] HospitalComment on above:Performed By: #### URI, GLU, CDP #### [address] [place], [place] 0316[address] Transplant Rn: Brandon Ku MD #### LIPR #### [address] [id number] Transplant Rn: Nicola Michaels [facility]DBELLEV[facility] ([facility]) [#/Vol]5.5 10*3/uLNormal3.5-11.3MAdams County HospitalComment on above:Performed By: #### URI, GLU, CDP #### [address] [place] [address] Transplant Rn: Brandon Ku MD #### LIPR #### [address] [address] Transplant Rn: Nicola Michaels MDGlucoseon 55-08-4739Oovefbn [Mass/Vol]104 mg/dL Oqid23-89CgrluAdams County HospitalComment on above:Performed By: #### URI, GLU, CDP #### [address] [place], [place] 228[address]83 Transplant Rn: Brandon Ku MD #### LIPR #### [address] [address] Transplant Rn: Nicola Michaels MDGlucose, Randomon 62-18-7470Avhxydo [Mass/Vol] 104 mg/kTSqfn83 - 99 mg/dLBon Memorial Health SystemLipid Panelon 05-29-2024 Cholesterol [Mass/Vol]128 mg/dL0 - 199 mg/dLBon Memorial Health SystemComment on above: Cholesterol Guidelines: <200 Desirable 200-240 Borderline >240 Undesirable Cholesterol in HDL [Mass/Vol]34 mg/dLLow40 - PINF mg/dLBon [facility] Health System Comment on above: HDL Guidelines: <40 Undesirable 40-59 Borderline >59 Desirable Cholesterol in LDL [Mass/Vol]71 mg/dL0 - 100 mg/dLBon [facility] Health System Comment on above: LDL Guidelines: <100 Desirable 100-129 Near to/above Desirable 130-159 Borderline >159 Undesirable Direct (measured) LDL and calculated LDL are not interchangeable tests. Cholesterol in VLDL [Mass/Vol]23 mg/dL1 - 30 mg/dLBon [facility] Health System Cholesterol.total/Cholesterol in HDL [Mass ratio]3.8 {ratio}[facility] Medical CenterInterpretation and review of laboratory resultsAbnormalBon Memorial Health SystemTriglyceride [Mass/Vol]115 mg/dLNINF - 150 mg/dLBon [facility] Comment on above: Triglyceride Guidelines: <150 Desirable 150-199 Borderline 200-499 High >499 Very high Based on AHA Guidelines for fasting triglyceride, March 2012. [facility] Medical CenterLipid Profileon 11-86-2401Yfxlrbtyfjj [Mass/Vol]128 mg/dLNormal0-199[facility] HospitalComment on above:Result Comment: Cholesterol Guidelines: <200 Desirable 200-240 Borderline >240 UndesirablePerformed By: #### URI, GLU, CDP #### [address] [place] [address] Transplant Rn: Brandon Ku MD #### LIPR #### [employer] [address] [place] [id number] Transplant Rn: RAS Leaholesterol in HDL [Mass/Vol]34 mg/dLLow>40[facility] HospitalComment on above:Result Comment: HDL Guidelines: <40 Undesirable 40-59 Borderline >59 DesirablePerformed By: #### URI, GLU, CDP #### [address] [place] [address] Transplant Rn: Brandon Ku MD #### LIPR #### [facility] [employer] [address] [place] [id number] Transplant Rn: RAS Leaholesterol in LDL [Mass/Vol]71 mg/dLNormal0-100 [facility] HospitalComment on above:Result Comment: LDL Guidelines: <100 Desirable 100-129 Near to/above Desirable 130-159 Borderline >159 Undesirable Direct (measured) LDL and calculated LDL are not interchangeable tests.Performed By: #### URI, GLU, CDP #### [address] [place], [place] 220[address] Transplant Rn: Brandon Ku MD #### LIPR #### [address] [place], [place] [address] Transplant Rn: RAS Leaholesterol in VLDL [Mass/Vol]23 mg/dLNormal1-30 [facility] on above:Performed By: #### URI, GLU, CDP #### [address] [place] [address] Transplant Rn: Brandon Ku MD #### LIPR #### [address] [place], [place] 0235[address] Transplant Rn: RAS Leaholestgiana.total/Cholesterol in HDL [Mass ratio]3.8 {ratio}NormalSelect Medical Trihealth Rehabilitation HospitalCommackinac straits hospital on above:Performed By: #### URI, GLU, CDP #### [address] [place] [address] Transplant Rn: Brandon Ku MD #### LIPR #### [address] [place], [place] 277[address] Transplant Rn: Nicola Michaels MDTriglyceride [Mass/Vol]115 mg/dLNormal<150[facility] on above:Result Comment: Triglyceride Guidelines: <150 Desirable 150-199 Borderline 200-499 High >499 Very high Based on AHA Guidelines for fasting triglyceride, March 2012.Performed By: #### URI, GLU, CDP #### [address] [place] [address] Transplant Rn: Brandon Ku MD #### LIPR #### [employer] [address] [place] [address] Transplant Rn: Nicola Michaels MDNo Panel Informationon 57-29-4469Ckairuxgjcudqr and review of laboratory resultsAbnormalBon SecLeonard J. Chabert Medical Center HealthBon SecMercy Health Tiffin HospitalUric Acidon 46-93-0895Gwnef [Mass/Vol]3.3 mg/dLLow3.4 - 7.0 mg/dLBon [facility] HealthUrate [Mass/Vol]3.3 mg/dLLow3.4-7.0[facility] Comment on above:Performed By: #### URI, GLU, CDP #### [facility] [address] [place] [address] Transplant Rn: Brandon Ku MD #### LIPR #### [employer] [address] [place] [address] Transplant Rn: Nicola Michaels MDSaint [facility] metabolic 2000 panelOrdered By: Phillip Munoz on 81-66-6075Ivxac gap [Moles/Vol]15 mmol/L10 - 20MetroHealthCalcium [Mass/Vol]9.5 mg/dL8.4 - 10.4 mg/dLMetroHealthChloride [Moles/Vol]104 mmol/L97 - 111 mmol/LMetroHealthCO2 [Moles/Vol]25 mmol/L21 - 30 mmol/LMetroHealth Creatinine [Mass/Vol]0.67 mg/dLLow0.80 - 1.30 mg/dLMetroHealthGFR/1.73 sq M.predicted MDRD (S/P/Bld) [Vol rate/Area]102 mL/min/{1.73_m2}- PINFMetroHealth Comment on above:2020 CKD EPI Equation using Creatinine without Race Comment: Estimated glomerular filtration rate (eGFR) is calculated without a race coefficient. Values should be interpreted in the context of the patient's full clinical presentation. Reference: 1. Dago C, Jenelle M, Antonio YATES, et al.. A Unifying Approach for GFR Estimation: Recommendations of the NKF-ASN Task Force on Reassessing the Inclusion of Race in Diagnosing Kidney Disease. AmericanJournal of Kidney Diseases 2021;79(2):268-88.e1. 2. N Engl J Med 1 Vol. 385 Issue 19 Pages 1418-4454 Glucose [Mass/Vol]100 mg/dL80 - 116 mg/dLMetroHealthInterpretation and review of laboratory resultsAbnormalMetroHealthPotassium [Moles/Vol]4.7 mmol/L3.3 - 5.3 mmol/LMetroHealthSodium [Moles/Vol]139 mmol/L135 - 148 mmol/LMetroHealthUrea nitrogen [Mass/Vol]11 mg/dL8 - 22 mg/dLMetroHealthMetroHealthCBC panel Auto (Bld)Ordered By: Case Armijo on 34-47-3290Kzfifizfggl distribution width (RBC) [Ratio]14.5 %11.5 - 14.5 %MetroHealthHematocrit (Bld) [Volume fraction]45.5 % 41.0 - 53.0 %MetroHealthHemoglobin (Bld) [Mass/Vol]15.0 g/dL13.9 - 16.3 g/dL MetroHealthInterpretation and review of laboratory resultsAbnormalMetroHealthMCH (RBC) [Entitic mass]28.5 pg26.0 - 34.0 pgMetroHealthMCHC (RBC) [Mass/Vol]32.8 g/dL32.0 - 35.9 g/dLMetroHealthMCV (RBC) [Entitic vol]87 fL80 - 100 fL MetroHealthPlatelet mean volume (Bld) [Entitic vol]9.6 fL7.5 - 11.2 fL MetroHealthPlatelets (Bld) [#/Vol]142 10*3/lNVan467 - 400 K/uLMetroHealthRBC (Bld) [#/Vol]5.24 10*6/uLMetroHealthWBC (Bld) [#/Vol]6.0 10*3/uL4.5 - 11.5 K/uL MetroHealthMetroHealthCardiologyon 03-15-2023 wave kenj18ydfhopmBtubnDokykcZ-K Iqjprwdc455 msMetroHealthQ-T msMetroHealthQ-T interval zoppufkrl353 msMetroHealthQRS uazr27lbkmkcaOxismSyittmWUH oabapuse89 msMetroHealthT wave axis 10degreesMetroHealthNo Panel Informationon [id number]y noise Sinus rhythm with frequent Premature ventricular complexes No previous ECGs available Confirmed by YAZMIN MCKEON ([id number]) on 03/15/2023 3:17:47 PM MetroHealthP wave Atrium by WQP37HGHFqkmxOesttzNmorsPzgrccEczrtal, Randomon [id number] [Mass/Vol]113 mg/cGNayq83 - 99 mg/dLBON smsPREP Interpretation and review of laboratory resultsAbnoMemorial Medical Centertutoria GmbH [facility] smsPREPLipid Panelon [id number] [Mass/Vol]130 mg/dL NINF - 200 mg/dLBON smsPREPComment on above: Cholesterol Guidelines: <200 Desirable 200-240 Borderline >240 Undesirable Cholesterol in HDL [Mass/Vol]35 mg/dLLow40 - PINF mg/dLB smsPREP Comment on above: HDL Guidelines: <40 Undesirable 40-59 Borderline >59 Desirable Cholesterol in LDL [Mass/Vol]76 mg/dL0 - 130 mg/dLBON smsPREP Comment on above: LDL Guidelines: <100 Desirable 100-129 Near to/above Desirable 130-159 Borderline >159 Undesirable Direct (measured) LDL and calculated LDL are not interchangeable tests. Cholesterol.total/Cholesterol in HDL [Mass ratio]3.7 {ratio}NINF - 5BON smsPREPInterpretation and review of laboratory resultsAbnoMemorial Medical Centertutoria GmbHTriglyceride [Mass/Vol]97 mg/dLNINF - 150 mg/dLBON smsPREPComment on above: Triglyceride Guidelines: <150 Desirable 150-199 Borderline 200-499 High >499 Very high Based on AHA Guidelines for fasting triglyceride, March 2012. [employer] W[employer] TechnologiesComprehensive Metabolic Panelon [id number] [Mass/Vol]3.8 g/dL3.5 - 5.2 g/dLBON smsPREPAlbumin/Globulin [Mass ratio]1.5 {ratio}1.0 - 2.5BON [facility] ExtraHop NetworksALP (Bld) [Catalytic activity/Vol]141 U/LHigh40 - 129 U/LBON SECtutoria GmbHALT [Catalytic activity/Vol]15 U/L5 - 41 U/LBON SECtutoria GmbHAnion gap [Moles/Vol]9 mmol/L9 - 17 mmol/LBON [facility] [email or web address] HEALTHAST [Catalytic activity/Vol]21 U/L NINF - 40 U/LBON SECOU[facility] ExtraHop NetworksBilirubin [Mass/Vol]0.3 mg/dL0.3 - 1.2 mg/dLBON [facility] ExtraHop NetworksCalcium [Mass/Vol]9.0 mg/dL8.6 - 10.4 mg/dLBON [facility] ExtraHop NetworksChloride [Moles/Vol]102 mmol/L98 - 107 mmol/LBON [facility] ExtraHop NetworksCO2 [Moles/Vol]23 mmol/L20 - 31 mmol/LBON [facility] [employer] Creatinine [Mass/Vol]0.52 mg/dLLow0.70 - 1.20 mg/dLBON [facility] CENTERtutoria GmbH GFR/1.73 sq M.predicted MDRD (S/P/Bld) [Vol rate/Area]- PINFBON [facility]ILL[facility] MEDICAL CENTERtutoria GmbHComment on above: Effective Mar 05, 2022 These results are not intended for use in patients <18 years of age. eGFR results are calculated without a race factor using the 2020 CKD-EPI equation. Careful clinical correlation is recommended, particularly when comparing to results calculated using previous equations. The CKD-EPI equation is less accurate in patients with extremes of muscle mass, extra-renal metabolism of creatine, excessive creatine ingestion, or following therapy that affects renal tubular secretion. Glucose [Mass/Vol]90 mg/dL70 - 99 mg/dLBON smsPREPInterpretation and review of laboratory resultsAbnormalBON SECOURS ExtraHop NetworksPotassium [Moles/Vol]3.9 mmol/L3.7 - 5.3 mmol/LBON SECtutoria GmbHProtein [Mass/Vol] 6.3 g/dLLow6.4 - 8.3 g/dLBON [facility] CENTERtutoria GmbHSodium [Moles/Vol]134 mmol/LLow 135 - 144 mmol/LBON SECtutoria GmbHUrea nitrogen (BldV) [Mass/Vol]13 mg/dL8 - 23 mg/dLBON CITY HOSPITALUrea nitrogen/Creatinine (Bld) [Mass ratio]25 High9 - 20BON CITY HOSPITALNo Panel Informationon [id number] CITY HOSPITALPSA Screeningon [id number] CITY HOSPITALTSHon 06-27-2022 TSH Qn1.66 m[IU]/LBON CITY HOSPITALGlucose, Randomon 55-63-1889Dqkhmgo [Mass/Vol]130 mg/qDAsks26 - 99 mg/dLBON CITY HOSPITALInterpretation and review of laboratory resultsAbnormalPOPLAR SPRINGS HOSPITALLipid Panelon [id number] [Mass/Vol]117 mg/dL<200BON CITY HOSPITALComment on above: Cholesterol Guidelines: <200 Desirable 200-240 Borderline >240 Undesirable Cholesterol in HDL [Mass/Vol]33 mg/dLLow>40BON CITY HOSPITALComment on above: HDL Guidelines: <40 Undesirable 40-59 Borderline >59 Desirable Cholesterol in LDL [Mass/Vol]63 mg/dL0 - 130 mg/dLBON CITY HOS[facility]ITAL Comment on above: LDL Guidelines: <100 Desirable 100-129 Near to/above Desirable 130-159 Borderline >159 Undesirable Direct (measured) LDL and calculated LDL are not interchangeable tests. Cholesterol.total/Cholesterol in HDL [Mass ratio]3.5 {ratio}<5BON CITY HOSPITALInterpretation and review of laboratory resultsAbnormalCARILION NEW RIVER VALLEY MEDICAL CENTERTriglyceride [Mass/Vol]107 mg/dL<150BON [facility]ert Hospitalment on above: Triglyceride Guidelines: <150 Desirable 150-199 Borderline 200-499 High >499 Very high Based on AHA Guidelines for fasting triglyceride, March 2012. [facility] Centerprehensive Metabolic Panelon [id number] [Mass/Vol]4 g/dL3.5 - 5.2 g/dLMercy HealthAlbumin/Globulin [Mass ratio]1.2 {ratio}[facility] HospitalALP (Bld) [Catalytic activity/Vol]154 U/LHigh40 - 129 U/L [facility] HospitalALT [Catalytic activity/Vol]22 U/L5 - 41 U/LMercy HealthAnion gap [Moles/Vol]17 mmol/L9 - 17 mmol/LMercy HealthAST [Catalytic activity/Vol]32 U/L <40[facility] HealthBilirubin [Mass/Vol]0.34 mg/dL0.3 - 1.2 mg/dLFairfield Medical Center HealthCalcium [Mass/Vol]9.5 mg/dL8.6 - 10.4 mg/dLFairfield Medical Center HealthChloride [Moles/Vol]102 mmol/L98 - 107 mmol/LMercy HealthCO2 [Moles/Vol]17 mmol/LLow20 - 31 mmol/LMercy Health Creatinine [Mass/Vol]0.63 mg/dLLow0.70 - 1.20 mg/dLGlenbeigh HospitalFree PSA/Total PSA [Mass fraction]7.4 g/dL6.4 - 8.3 g/dLFairfield Medical Center HealthGFR >60>60 mL/minFairfield Medical Center HealthGFR Non->60>60 mL/minFairfield Medical Center HealthGlucose [Mass/Vol]145 mg/lYDkhr44 - 99 mg/dLGlenbeigh HospitalInterpretation and review of laboratory resultsAbnormalFairfield Medical Center HealthPotassium [Moles/Vol]4.5 mmol/L3.7 - 5.3 mmol/LMercy HealthSodium [Moles/Vol]136 mmol/L135 - 144 mmol/LMercy HealthUrea nitrogen (BldV) [Mass/Vol]10 mg/dL8 - 23 mg/dLGlenbeigh HospitalUrea nitrogen/Creatinine (Bld) [Mass ratio]16[facility]ridgeLabor[facility] - Chemistry and Chemistry - challengeon 24-40-9577BBH/1.73 sq M.predicted MDRD (S/P/Bld) [Vol rate/Area]Glenbeigh HospitalComment on above:Average GFR for 60-69 years old: 85 mL/min/1.73sq m Chronic Kidney Disease: <60 mL/min/1.73sq m Kidney failure: <15 mL/min/1.73sq m eGFR calculated using average adult body mass. Additional eGFR calculator available at: http://www.Picreel.Pawaa Software/multiple_crcl_2011.htm Stage 1: Some kidney damage normal GFR Stage 2: Mild kidney damage GFR 60-89 Stage 3: Moderate kidney damage GFR 30-59 Stage 4: Severe kidney damage GFR 15-29 Stage 5: Severe kidney damage GFR <15 ESRD - chronic treatment by dialysis or transplant PSA screeningon 05-23-4471Kmzmu HealthTS without Reflexon [id number] Qn1.29 m[IU]/nScaledEK 12 LeadOrdered By: Darío Castro on 97-28-2415Nyjycp [email or web address].com Phone: p Enge43jggijbmWdeuiPlehn Analytics Phone: p-R Rrbbpnwo077 [employer] Phone: Q-T Cfqiznff450 [employer] Phone: QRS Wxjfvnbh51 [employer] Work Phone: QTc Calculation (Leeroy)427 [employer] Work Phone: r Gptm81kxwgtzpMbbgcPlehn Analytics Phone: T Oonl0nqmrzpoKoampPlehn Analytics Phone: Ventricular [email or web address].[email or web address] Phone: Poor data quality, interpretation may be adversely affected Normal sinus rhythm Normal ECG When compared with ECG of 22-JUL-2010 13:59, T wave inversion now evident in Inferior leads Confirmed by QING ALEXANDER ([id number]) on 01/03/2021 2:40:23 PM [employer] Work Phone: edi, [facility] [[email or web address]] Incoming Ekg Results From [facility] - 01/03/2021 2:40 PM EDT Poor data quality, interpretation may be adversely affected Normal sinus rhythm Normal ECG When compared with ECG of 22-JUL-2010 13:59, T wave inversion now evident in Inferior leads Confirmed by QING ALEXANDER ([id number]) on 01/03/2021 2:40:23 PMNexopia Phone: [facility] HospitalIBN Media Phone: Glucose, randomOrdered By: Shi Metz on [id number] [Mass/Vol]115 mg/eOTlgh01 - 99 mg/dLTwin City HospitalIBN Media Phone: Interpretation and review of laboratory results AbnormalTwin City HospitalIBN Media Phone: [facility] HospitalIB[facility] Phone: lipid PanelOrdered By: Shi Metz on 11-02-2020 Cholesterol [Mass/Vol]146 mg/dL<200T[facility] HospitalIBN Media Phone: comment on above: Cholesterol Guidelines: <200 Desirable 200-240 Borderline >240 Undesirable Cholesterol in HDL [Mass/Vol]41 mg/dL>40T[facility] City HospitalIBN Media Phone: comment on above: HDL Guidelines: <40 Undesirable 40-59 Borderline >59 Desirable Cholesterol in LDL [Mass/Vol]84 mg/dL0 - 130 mg/dLTwin City HospitalIBN Media Phone: comment on above: LDL Guidelines: <100 Desirable 100-129 Near to/above Desirable 130-159 Borderline >159 Undesirable Direct (measured) LDL and calculated LDL are not interchangeable tests. Cholesterol in VLDL [Mass/Vol]NOT REPORTED1 - 30 mg/dLTwin City HospitalIBN Media Phone: cholesterol.total/Cholesterol in HDL [Mass ratio]3.6 {ratio}<5MerIBN Media Phone: Triglyceride [Mass/Vol]107 mg/dL<150[facility] Phone: comment on above: Triglyceride Guidelines: <150 Desirable 150-199 Borderline 200-499 High >499 Very high Based on AHA Guidelines for fasting triglyceride, March 2012. [employer] Phone: FL BARIUM ENEMA W AIR CONTRASTon . Redundancy of the left colon complicating assessment. No appreciable diverticulosis. 2. Somewhatdiminished haustra markings, suggesting history of long-term laxative use. 3. Serpiginous filling defects just above the rectum which may be related to internal hemorrhoids. 4. Transient ovoid filling defects in the colon likely lumps of stool. Brown return noted in the in a bag. 5. No definite persistent polypoid filling defects. No retrograde obstructing mass lesions or stricture formations. Other findings as above.[facility], [place] EXAMINATION: DOUBLE CONTRAST BARIUM ENEMA 01/21/2020 9:10 am TECHNIQUE: Double contrast enema was performed with air and barium contrast. FLUOROSCOPY DOSE AND TYPE OR TIME AND EXPOSURES: 3.0 minutes fluoro time, 88.66 mGy D AP, 23 images. COMPARISON: Abdomen of 22 July 2010 HISTORY: ORDERING SYSTEM PROVIDED HISTORY: Family history of colon cancer in father TECHNOLOGIST PROVIDED HISTORY: This patient is high functioning MRDD. We had significant delays with today's procedure because apparentlyanesthesia needs a separate consent form from surgery consent form and it took several hours beforePOA could be reached in pre-op. Then, this patient was noted to have an extremely redundant colon and multiple positions and attempts and externally applied manual pressure etc all consistently reaching the same endpoint of proximal ascending colon. Due to significant delays with consent issues, itwas now too late to order a barium enema here. I do not have previous colonoscopy report done by another endoscopist to know if the cecum was truly reached or not. We even have longer 190 scopes new,still not long enough. He would benefit actually from a virtual colonoscopy but that is not available here. So will plan to have him undergo a barium enema. He will need to have this done in radiology, need POA consent, and bowel prep. unable to reach cecum, extremely redundant colon, father familyhx colon cancer, see my detailed comments Special needs MRDD patient. Long-term laxative administration. FINDINGS: Preparation Department Supervisor image demonstrates no acute abnormality. A double-contrast barium enema was performed. Marked redundancy of the left colon is noted. Barium flowed very slowly but relatively freely from the rectum to the cecum. No free initial reflux of barium into the appendix or terminal ileum was noted. Retained feces was noted with brown return in the barium enema bag. Bowel loops demonstrate decreased haustra markings consistent with reported long-term laxative use. Serpiginous fillingdefects are noted right above the rectum. This may be related to internal hemorrhoid formation. No r etrograde obstructing mass lesions or stricture formations are noted. There are scattered filling defects within the colon which appear transient, likely retained stool. They are unassociated with any identifiable stalks. No definite persistent polypoid filling defects are noted within the colon. Minimal reflux into the terminal ileum on later films is noted, demonstrating no gross abnormality.[facility]- [place], [place], [place]hhailey Incoming Radiant Results From [facility] - 01/21/2020 5:40 PM EDT EXAMINATION: DOUBLE CONTRAST BARIUM ENEMA 01/21/2020 9:10 am TECHNIQUE: Double contrast enema was performed with air and barium contrast. FLUOROSCOPY DOSE AND TYPE OR TIME AND EXPOSURES: 3.0 minutes fluoro time, 88.66 mGy D AP, 23 images. COMPARISON: Abdomen of 22 July 2010 HISTORY: ORDERING SYSTEM PROVIDED HISTORY: Family history of colon cancer in father TECHNOLOGIST PROVIDED HISTORY: This patient is high functioning MRDD. We had significant delays with today's procedure because apparently anesthesia needs a separate consent form from surgery consent form and it took several hours before POA could be reached in pre-op. Then, this patient was noted to have an extremely redundant colon and multiple positions and attempts and externally applied manual pressure etc all consistently reaching the same endpoint of proximal ascending colon. Due to significant delays with consent issues, it was now too late to order a barium enema here. I do not have previous colonoscopy report done by another endoscopist to know if the cecum was truly reached or not. We even have longer 190 scopes new, still not long enough. He would benefit actually from a virtual colonoscopy but that is not available here. So will plan to have him undergo a barium enema. He will need to have this done in radiology, need POA consent, and bowel prep. unable to reach cecum, extremely redundant colon, father family hx colon cancer, see my detailed comments Special needs MRDD patient. Long-term laxative administration. FINDINGS: Preparation Department Supervisor image demonstrates no acute abnormality. A double-contrast barium enema was performed. Marked redundancy of the left colon is noted. Barium flowed very slowly but relatively freely from the rectum to the cecum. No free initial reflux of barium into the appendix or terminal ileum was noted. Retained feces was noted with brown return in the barium enema bag. Bowel loops demonstrate decreased haustra markings consistent with reported long-term laxative use. Serpiginous filling defects are noted right above the rectum. This may be related to internal hemorrhoid formation. No retrograde obstructing mass lesions or stricture formations are noted. There are scattered filling defects within the colon which appear transient, likely retained stool. They are unassociated with any identifiable stalks. No definite persistent polypoid filling defects are noted within the colon. Minimal reflux into the terminal ileum on later films is noted, demonstrating no gross abnormality. IMPRESSION: 1. Redundancy of the left colon complicating assessment. No appreciable diverticulosis. 2. Somewhat diminished haustra markings, suggesting history of long-term laxative use. 3. Serpiginous filling defects just above the rectum which may be related to internal hemorrhoids. 4. Transient ovoid filling defects in the colon likely lumps of stool. Brown return noted in the in a bag. 5. No definite persistent polypoid filling defects. No retrograde obstructing mass lesions or stricture formations. Other findings as above. [facility], [place] MailCOLONOSCOPY PROCEDUREon [id number] dictationThe [facility] Hospital, [place] Class MailCovid-19 Ambulatoryon [id number]-CoV-2, NAANot DetectedNot Detected [facility], MNComharshad on above:(NOTE) This test was developed and its performance characteristics determined by [facility]. This test has not been FDA cleared or approved. This test has been authorized by FDA under an Emergency Use Authorization (EUA). This test is only authorized for the duration of time the declaration that circumstances exist justifying the authorization of the emergency use of in vitro diagnostic tests for detection of SARS-CoV-2 virus and/or diagnosis of COVID-19 infection under section 564(b)(1) of the Act, 21 U.S.C. 360bbb-3(b)(1), unless the authorization is terminated or revoked sooner. When diagnostic testing is negative, the possibility of a false negative result should be considered in the context of a patient's recent exposures and the presence of clinical signs and symptoms consistent with COVID-19. An individual without symptoms of COVID-19 and who is not shedding SARS-CoV-2 virus would expect to have a negative (not detected) result in this assay. Performed At: [facility] [address] [facility] [place] [id number] Simona Wilkinson MD Ph:[phone] COVID-19 PCRon [id number]-CoV-2, NAANot DetectedNormalNot DetectedThe [facility] EastComment on above:Result Comment: This test was developed and its performance characteristics determined by [facility]. This test has not been FDA cleared or approved. This test has been authorized by FDA under an Emergency Use Authorization (EUA). This test is only authorized for the duration of time the declaration that circumstances exist justifying the authorization of the emergency use of in vitro diagnostic tests for detection of SARS-CoV-2 virus and/or diagnosis of COVID-19 infection under section 564(b)(1) of the Act, 21 U.S.C. 360bbb-3(b)(1), unless the authorization is terminated or revoked sooner. When diagnostic testing is negative, the possibility of a false negative result should be considered in the context of a patient's recent exposures and the presence of clinical signs and symptoms consistent with COVID-19. An individual without symptoms of COVID-19 and who is not shedding SARS-CoV-2 virus would expect to have a negative (not detected) result in this assay.Performed By: #### CVDPCR #### [facility] [address] [place] [address] KarenComprehensive Metabolic PanelOrdered By: Renaldo Elkins on [id number] [Mass/Vol]4.2 g/dL3.5 - 5.2 g/dLFairfield Medical Center [facility] Phone: albumin/Globulin [Mass ratio]1.6 {ratio}[employer] Phone: aLP [Catalytic activity/Vol]148 U/LHigh40 - 129 U/L [employer] Phone: aLT [Catalytic activity/Vol]21 U/L5 - 41 U/LMOssia Phone: anion gap [Moles/Vol]14 mmol/L9 - 17 mmol/LMGamma [employer] Work Phone: aST [Catalytic activity/Vol]25 U/L<40[facility] Phone: bilirubin [Mass/Vol]0.28 mg/dLLow0.3 - 1.2 mg/dLFairfield Medical Center [facility] Phone: bun/Cre Ynmcd87QbceYuwic [facility] Phone: calcium [Mass/Vol]9.1 mg/dL8.6 - 10.4 mg/dLFairfield Medical Center [facility] Phone: chloride [Moles/Vol]102 mmol/L98 - 107 mmol/LMohiohealth southeastern medical centery [employer] Work Phone: cO2 [Moles/Vol]22 mmol/L20 - 31 mmol/LMohiohealth southeastern medical centery [employer] Phone: creatinine [Mass/Vol]0.54 mg/dLLow0.7 - 1.2 mg/dLFairfield Medical Center [facility] Phone: GFR >60>60 mL/minFairfield Medical Center [facility] Phone: GFR CommentTwin City HospitalIBN Media Phone: comment on above:Average GFR for 60-69 years old: 85 mL/min/1.73sq m Chronic Kidney Disease: <60 mL/min/1.73sq m Kidney failure: <15 mL/min/1.73sq m eGFR calculated using average adult body mass. Additional eGFR calculator available at: http://www.Picreel.Pawaa Software/multiple_crcl_2012.htm GFR Non->60>60 mL/minFairfield Medical Center [facility] Phone: GFR StagingTwin City HospitalIBN Media Phone: comment on above:Stage 1: Some kidney damage normal GFR Stage 2: Mild kidney damage GFR 60-89 Stage 3: Moderate kidney damage GFR 30-59 Stage 4: Severe kidney damage GFR 15-29 Stage 5: Severe kidney damage GFR <15 ESRD - chronic treatment by dialysis or transplant Glucose [Mass/Vol]91 mg/dL70 - 99 mg/dLTwin City HospitalIBN Media Phone: Interpretation and review of laboratory results AbnormalTwin City HospitalHealthMedia Work Phone: potassium [Moles/Vol]4.2 mmol/L3.7 - 5.3 mmol/LMercy [employer] Work Phone: protein [Mass/Vol]6.9 g/dL6.4 - 8.3 g/dLTwin City HospitalHealthMedia Work Phone: sodium [Moles/Vol]138 mmol/L135 - 144 mmol/LMercy [employer] Work Phone: Urea nitrogen [Mass/Vol]15 mg/dL8 - 23 mg/dLTwin City HospitalHealthMedia Work Phone: TSH without ReflexOrdered By: Renaldo Elkins on 06-03-9119ZUM Qn1.71 m[IU]/LMohiohealth southeastern medical centerKonga Online [employer] Work Phone: cBC Auto DifferentialOrdered By: Renaldo Elkins on 78-79-0000Hzfhalbg Eos #<0.03T[facility] City HospitalIBN Media Phone: absolute Immature Granulocyte<0.03T[facility] City HospitalIBN Media Phone: absolute Lymph #1.10T[facility] City HospitalIBN Media Phone: absolute [place] #0.60T[facility] City HospitalIBN Media Phone: basophils (Bld) [#/Vol]0.03 10*3/uLMerIBN Media Phone: basophils/100 WBC (Bld)1 %0 - 2 %[employer] Phone: differential TypeNOT REPORTEDTwin City HospitalIBN Media Phone: eosinophils/100 WBC (Bld)0 %Low1 - 4 %[employer] Phone: erythrocyte distribution width (RBC) [Ratio]13.4 %11.8 - 14.4 %[employer] Phone: Hematocrit (Bld) [Volume fraction]42.9 %40.7 - 50.3 % [facility] [employer] Phone: Hemoglobin (Bld) [Mass/Vol]14.0 g/dL13 - 17 g/dLTwin City HospitalIBN Media Phone: Immature granulocytes/100 WBC (Bld)0 %0T[facility] City HospitalIBN Media Phone: Interpretation and review of laboratory results AbnormalTwin City HospitalIBN Media Phone: lymphocytes/100 WBC (Bld)21 %Low24 - 43 %Community Memorial HospitalScramblerMail Phone: MCH (RBC) [Entitic mass]29.1 pg25.2 - 33.5 pgTwin City HospitalIBN Media Phone: MCHC (RBC) [Mass/Vol]32.6 g/dL28.4 - 34.8 g/dLTwin City HospitalIBN Media Phone: MCV (RBC) [Entitic vol]89.2 fL82.6 - 102.9 fLTwin City HospitalIBN Media Phone: Monocytes/100 WBC (Bld)11 %3 - 12 %[facility] HospitalScramblerMail Phone: NRBC Automated0.00.0 per 100 WBCTwin City HospitalIBN Media Phone: platelet EstimateNOT REPORTEDTwin City HospitalIBN Media Phone: platelet mean volume (Bld) [Entitic vol]11.1 fL8.1 - 13.5 fLTwin City HospitalIBN Media Phone: Platelets (Bld) [#/Vol]142 10*3/uLTwin City HospitalIBN Media Phone: RBC (Bld) [#/Vol]4.81 10*6/uL4.21 - 5.77 m/uLTwin City HospitalIBN Media Phone: rBC morphology finding Nom (Bld)NOT REPORTEDMerHealthMedia Work Phone: segmented neutrophils/100 WBC (Bld)67 %High36 - 65 % [facility] Hospitaly [employer] Work Phone: segs Absolute3.60[facility] Phone: WBC (Bld) [#/Vol]5.4 10*3/uLFairfield Medical Center [employer] Work Phone: WBC MorphologyNOT REPORTEDTwin City HospitalIBN Media Phone: Glucose, randomOrdered By: Renaldo Elkins on 28-07-9151Pgorvin [Mass/Vol]94 mg/dL70 - 99 mg/dLTwin City HospitalIBN Media Phone: lipid PanelOrdered By: Renaldo Elkins on 98-58-7995Opivggvzwwf [Mass/Vol]121 mg/dL<200T[facility] HospitalIBN Media Phone: comment on above: Cholesterol Guidelines: <200 Desirable 200-240 Borderline >240 Undesirable Cholesterol in HDL [Mass/Vol]46 mg/dL>40[facility] Phone: comment on above: HDL Guidelines: <40 Undesirable 40-59 Borderline >59 Desirable Cholesterol in LDL [Mass/Vol]67 mg/dL0 - 130 mg/dLTwin City HospitalIBN Media Phone: comment on above: LDL Guidelines: <100 Desirable 100-129 Near to/above Desirable 130-159 Borderline >159 Undesirable Direct (measured) LDL and calculated LDL are not interchangeable tests. Cholesterol.total/Cholesterol in HDL [Mass ratio]2.6 {ratio}<5Mer[employer]N Media Phone: Triglyceride [Mass/Vol]41 mg/dL<150Twin City HospitalIBN Media Phone: comment on above: Triglyceride Guidelines: <150 Desirable 150-199 Borderline 200-499 High >499 Very high Based on AHA Guidelines for fasting triglyceride, March 2012. VLDLNOT REPORTED1 - 30 mg/dLTwin City HospitalIBN Media Phone: Uric AcidOrdered By: Renaldo Elkins on 38-54-5014Owhqmiaibkgavr and review of laboratory resultsAbnormalFairfield Medical Center [employer] Work Phone: Urate [Mass/Vol]3.2 mg/dLLow3.4 - 7 mg/dLGlenbeigh Hospital Work Phone: Vital Signs Date TimeVital SignValuePerforming ZuffzhffaQhdqvwge51-97-7047 09:10-0400Body mfoljrhydtv96.81 [degF]Drew Rodriguez DDS Work Phone: [phone]) [phone]pFojcad25-28-1447 09:10-0400Body zulhgy17.02 kg Drew Rodriguez DDS Work Phone: 1([phone]) [phone]oWwmsfc46-65-6966 09:10-0400Diastolic blood kasnecct98 mm[Hg]Drew Rodriguez [employer] Work Phone: 1([phone]) [phone]wPexqub00-40-3156 09:10-0400Heart rate67 /minLaith Michael DDS Work Phone: [phone]) [phone]jGwnauf71-98-7808 09:10-0400Respiratory rate16 /minLaith Michael DDS Work Phone: 1(613) [phone]iYuhrlh80-50-4552 09:10-3202OpS2% (BldA) [Mass fraction]97 %Drew Rodriguez DDS Work Phone: [phone]cQnmzbv26-92-5137 09:10-0400Systolic blood ehvaqhkt847 mm[Hg]Drew Rodriguez DDS Work Phone: 1([phone]) [phone]oEsxrnn59-67-3735 15:38-0400Heart rate83 /minPse VrhemhuwrzVbaffAxaoyo13-15-7847 11:36-0400Body gsgdbqfhyfh77.49 [degF]Pse XtxehvoincUvadsDcrvoy47-15-6595 11:36-0400Diastolic blood nbnqmdei58 mm[Hg]Pse YykalzobvmNvygbZkhsvb40-72-8385 11:36-0400Heart rate85 /minPse Anesthesia AmlyfXsqupx52-70-1319 11:36-5277RyI7% (BldA) [Mass fraction]97 %[facility] Anesthesia MyfwbOsmhko23-41-7746 11:36-0400Systolic blood mm[Hg][facility] Anesthesia RbvcyHnvpdo07-12-2535 17:30-0400BP Orlafngfs15 mm[Hg][place], [place]07-31-2020 17:30-0400BP Atrdnfgd961 mm[Hg][facility], [place]89-34-9733 17:30-0400Pulse (Heart Rate)62 /[place]Be[place], [place]07-31-2020 17:30-0400Pulse Eqmbimyb71 %[place], [place] 01-01-2020 17:30-0400Respiratory Rate16 /minBeQuinlan, [place] 01-01-2020 17:05-0400Body Sfqdazjlgza49.8 [degF][place], [place]07-31-2020 10:45-0400BMI (Body Mass Index)33.14 kg/x2QixggomMiami Valley Hospital, [place]95-11-2511 10:45-0400Body ngqbir04.5 kgM[place], [place]07-31-2020 10:45-3502Yngdfb880.4 cmMiami Valley Hospital, [place] Encounters Encounter DateEncounter TypeCare ProviderFacilityStart: 04-06-2025 End: 37-39-7981wnuuezlusnGXLABQ S [facility]ITALONProMedica [facility] HospitalStart: 04-03-2025 End: 01-95-0074Eyjbqppyp department patient visitJOSEPH S YTONProMedica Saint Paul HospitalStart: 02-18-2025 End: 06-96-9055nywbgekzmkWZYBM [facility] HospitalStart: 02-18-2025 End: 47-72-2445Agnumsolfe hospital visit by physicianJames J. [facility] Cardiac MonitorUniversity Hospitals [facility] Non-Invasive CardiologyComment on above:Abnormal EKG; Abnormal electrocardiographyStart: 11-06-2024 End: 72-53-5890nlyzphlctoKNXFM L KRUGERMercy Mcallen HospitalStart: 11-06-2024 End: 50-09-6850Aiwbuoeekf hospital visit by Austin Castro APRN - BARIATRIC COORDINATOR Work Phone: [facility] LABStart: 10-08-2024 End: 27-98-3228Anyvtue encounter procedureVicst. albans hospitalmarleni Duggannez DDS Work Phone: MetMor[facility] DentistryComment on above:Arrived Start: 55-14-9475nzkxffmukyLCKOHLCZ AMARILIS SAMSONFacility:METROHealthStart: 06-18-2024 End: 57-30-3916quqvmuwpjvJNUPI L KRUGERMercy Mcallen HospitalStart: 06-18-2024 End: 12-54-4212Kfivpscxpb hospital visit by Austin Castro APRN - BARIATRIC COORDINATOR Work Phone: mthz LaboratoryStart: 06-17-2024 End: 38-93-6038tzqsueccuoTNHYR L KRUGERMercy Mcallen HospitalStart: 06-17-2024 End: 72-10-4935Xqmyltryjq hospital visit by Austin Castro APRN - BARIATRIC COORDINATOR Work Phone: mthz LaboratoryStart: 05-29-2024 End: 09-96-2489rpdqpknzwvSNUMK L KRUGERMercy Mcallen HospitalStart: 05-29-2024 End: 10-79-8267Yoeufypewz hospital visit by Austin Castro APRN - BARIATRIC COORDINATOR Work Phone: mthz LaboratoryStart: 05-07-2024 End: 72-54-7617fdrbobzpbdPEABR L KRUGERMercy Mcallen HospitalStart: 05-07-2024 End: 12-52-0628Sjlqvtsojp hospital visit by Austin Castro APRN - BARIATRIC COORDINATOR Work Phone: mthz LaboratoryStart: 07-15-2023 End: 52-71-2043Yrgfbyrnsh hospital visit by Stanton Parry MD Work Phone: [facility] Non-Invasive CardiologyComment on above:Primary hypertension; Frequent PVCsStart: 03-25-2023 End: 47-76-8285Mhziwsopkp hospital visit by Terrie Rodriguez DDS Work Phone: [facility]ulatory SurgeryComment on above: RefillStart: 03-25-2023 End: 99-34-6504Dyxtshp encounter procedureDrew Rodriguez DDS Work Phone: [employer] DentistryStart: 83-38-1201Gftnrlhjs encounterPaindia Wen RNMetroHealth Pre Surgical EvaluationComment on above: Pre-surgical Evaluation (DD adult dental restorations 03/25 under [place] at [facility]. PSE completed - consents obtained. PSE RN spoke to [place], confirmed O, [facility] address, and 0900 arrival time. /)Start: 33-90-4738Wffqxkiyp encounterLaxmi Maloney RNMetroHealth Pre Surgical EvaluationComment on above:Pre-surgical Evaluation (Informed Consent & Anesthesia consent obtained)Start: 03-15-2023 End: 75-03-9566Xstlmvw encounter procedurePse AnesthesiaMetroHealth Pre Surgical EvaluationComment on above:Pre-op examination (Primary Dx)Pre-op examination (Primary Dx); Ventricular premature depolarizationStart: 03-15-2023 End: 97-11-3930Neyxuhhsyihdf examination donePse AnesthesiaMetroHealth Work Phone: start: 42-33-7267Fgbgodtoa encounterAdedjb Brittany DDS Work Phone: [facility] DentistryComment on above:APPOINTMENT SCHEDULINGStart: 81-66-7609Jbbbisqhp to same day surgery centerMarnie Ellison DDS Work Phone: [employer] Oral SurgeryStart: 01-07-2023 End: 28-93-4150Ufhsjvq encounter procedureAdedfelixo Brittany DDS Work Phone: [facility] DentistryStart: 11-21-2022 End: 78-81-7065Gjlsumduwy hospital visit by Austin Castro SIGNALS OFFICER - BARIATRIC COORDINATOR Work Phone: mtHZ LaboratoryStart: 06-27-2022 End: 41-06-0734Cyjauqsckr hospital visit by Austin Castro SIGNALS OFFICER - BARIATRIC COORDINATOR Work Phone: mthz LaboratoryStart: 11-15-2021 End: 86-88-8106Fzaiggjpmz hospital visit by Austin Castro SIGNALS OFFICER - BARIATRIC COORDINATOR Work Phone: mthz LaboratoryStart: 06-14-2021 End: 74-92-6812Nvqblcazch hospital visit by Austin Castro SIGNALS OFFICER - BARIATRIC COORDINATOR Work Phone: mthz LaboratoryStart: 01-03-2021 End: 56-63-0671Pflipoqneg hospital visit by Austin Castro SIGNALS OFFICER - BARIATRIC COORDINATOR Work Phone: mthz EKGStart: 11-02-2020 End: 72-58-6565Eawwnkhihv hospital visit by Austin Castro SIGNALS OFFICER - BARIATRIC COORDINATOR Work Phone: mthz LaboratoryStart: 05-12-2020 End: 69-53-2509Nkqjiompye hospital visit by Viri Myers LaboratoryStart: 01-21-2020 End: 04-35-8479Lgigwuphuu hospital visit by physicianTriHealth [facility] RadiologyComment on above:Family history of colon cancer in father; Redundant colonStart: 01-15-2020 End: 20-65-9337Abalwgzujk hospital [facility] Covid Screening ScheduleCARTHAGE AREA [facility] Covid ScreeningComment on above:Preop testingStart: 01-01-2020 End: 73-73-7499Xhpuouimsv hospital visit by Myles Parker Work Phone: mthz ORStart: 12-28-2019 End: 01-04-6448Tqecdhsuig hospital visit by physicianJames J. Peters [facility] Beena19 Pat Screening ScheduleMTHZ PRE ADMITStart: 12-17-2019 End: 77-94-4306Uuwqslv encounter procedureMARLENE ELKINSFacility:I5Kejyw: 06-17-2019 End: 97-47-9700Ipgvytsagr hospital visit by Viri Elkins MD Work Phone: mthz LaboratoryStart: 05-28-2019 End: 57-71-8151Vtiauowscs hospital visit by physicianRenaldo Elkins MD Work Phone: mthz LaboratoryStart: 05-28-2016 End: 06-19-5904RlhqmmvpdbAPPKIUTUAIC SANFORDFacility:[facility] Procedures DateProcedureProcedure DetailPerforming ClinicianStart: 50-03-5523Nlnaeuz quantitative blood xcpt reagent stripTammy L Errol SIGNALS OFFICER Work Phone: Start: 24-06-4038Xsrdv panelTammy L Errol SIGNALS OFFICER Work Phone: Start: 63-67-7420Wxrcekrmiezgz metabolic panelTammy L Errol SIGNALS OFFICER Work Phone: Start: 64-42-3194Bunfusx quantitative blood xcpt reagent stripTammy L Errol SIGNALS OFFICER Work Phone: Start: 25-39-3257Igmfl panelTammy L Errol SIGNALS OFFICER Work Phone: Start: 03-15-2023 End: 23-10-9529Spqvl count complete automatedKirsten Ponsart DO Work Phone: start: 92-93-3043Wcp routine ecg w/least 12 lds trcg only w/o i&rKirsten Ponsart DO Work Phone: start: 36-56-0382Rxyojtm quantitative blood xcpt reagent stripTammy L Errol SIGNALS OFFICER Work Phone: Start: 90-77-3189Ohnfn panelTammy L Errol SIGNALS OFFICER Work Phone: Start: 08-29-9527KDV screeningJokamar Lottie SIGNALS OFFICER - [facility] Work Phone: Comment on above:The Yakelin ECLIA assay is used. Results obtained with different assay methods cannot be used interchangeably. Start: 23-76-6710Iqytgchvbmqzp metabolic panelTasunil Miranda SIGNALS OFFICER Work Phone: Start: 80-28-5740Ubavtaj quantitative blood xcpt reagent stripShi Metz MD Work Phone: Start: 74-18-0198Cnazf panelShi Metz MD Work Phone: Start: 06-14-2021 End: 54-41-3554Qaufkekucfmju metabolic panelShi Metz MD Work Phone: Comment on above:The Yakelin ECLIA assay is used. Results obtained with different assay methods cannot be used interchangeably. Start: 84-72-4163Vrv routine ecg w/least 12 lds w/i&rJoshbranden Sharma Lottie SIGNALS OFFICER - [facility] Work Phone: Start: 25-62-1258Wehgevu quantitative blood xcpt reagent stripShi Metz MD Work Phone: Start: 40-11-9010Zkxwq Rosa Metz MD Work Phone: Start: 64-58-3173Htszi colon w/spec hi dns barium w/wo glucagonBettina I Nazemi Work Phone: Start: 01-01-2020 End: 21-74-2239DypybemmiltAchusbt I Nazemi Work Phone: Start: 89-85-5636VGTTW-19 AMBULATORYLuis E Alvarez Work Phone: Start: 69-00-4828RRS Riya Elkins MD Work Phone: comment on above:The Yakelin ECLIA assay is used. Results obtained with different assay methods cannot be used interchangeably. Start: 80-89-3000Oopgytknudiqx metabolic panelRenaldo Elkins MD Work Phone: start: 70-22-0413Wfuyhxq quantitative blood xcpt reagent stripRenaldo Elkins MD Work Phone: start: 28-40-4798Kqhhm panelRenaldo Elkins MD Work Phone: Plan of Treatment DateCare ActivityDetailAuthorStart: 51-38-2554KCL vaccine (adult) (1 - 1-dose 75+ series)RSV vaccine (adult) (1 - 1-dose 75+ series)MetroHealthStart: 28-99-7244Gcxvcpbjd for malignant neoplasm of colonGlenbeigh HospitalStart: 05-29-2029 Lipid panelCholesterolMetroHealthStart: 81-49-1484Vmpyf panelCholesterol MetroHealthStart: 03-01-2026 End: 17-99-1275Vkqrwlx encounter ejywhaywc47/29/2026 11:00 AM EDT Office Visit [facility] Part of [address] [address] Eduard Parry MD [address] [place] [address] 1 [facility] Part [facility]Comment on above:1 yrStart: 47-17-5924Jtqdz panelLipidsBon Secours Glenbeigh HospitalStart: 08-30-2025 End: 79-19-4922Ushloun encounter udwvfwoti52/30/2026 10:30 AM EDT Office Visit [facility] Part of [facility] [address] [place] [phone] Devendra Smith, PAAlirioC [address] [place] [address] 1Y psa/pvrTOLEDO HOSPITAL UROLOG[facility] Part [facility] HospitalComment on above:1Y psa/pvrStart: 00-67-5838Gbxgf panelLipidsBon [facility]: 26-58-6161Bgzpgffr screenDiabetes screenInova Health System: 02-18-2025 End: 73-41-8690Vymtzpd encounter naigfelai49/18/2025 10:00 AM EDT Office Visit [facility] Part of [address] [place] [address] Eduard Parry MD [address] [place] [address] 1 [facility] Part [facility] HospitalComment on above:1 yrStart: 58-70-7162QJPIA-19 Vaccine ( season)COVID-19 Vaccine ( season)Bon [facility] Hospitalart: 71-91-1907Uglrdolev vaccinationBon [facility]: 20-87-3124Msvhr panelLipidsInova Health System: 08-31-2024 End: 33-81-2786Waoccvr encounter wskukkkck45/31/2025 11:30 AM EDT Office Visit [facility] Part of [address] [place] [address] Lian Medley, SIGNALS OFFICER - BARIATRIC COORDINATOR [address] [place] [address] 1yr [facility]AT[facility] CenterComment on above:1yr PSAStart: 40-88-5565Iqdjr panelLipidsBON CITY HOSPITALStart: 02-02-2024 COVID-19 Vaccine ( season)COVID-19 Vaccine ( season)Bon [facility] SystemStart: 55-86-9360EHBHZ-19 Vaccine ( season)COVID- 19 Vaccine ( season)MetroHealthStart: 95-38-0043Dhgbbtmjv vaccination Flu vaccine (#1)Bon [facility] SystemStart: 08-09-2023 End: 50-73-3818Fenkecz encounter procedureTOLEDO HOSPITAL [facility]OLOG[facility] Medical CenterComment on above:1 year f/u, PSA/BMP priorStart: 07-26-2023 End: 21-19-1924Ghvmpqg encounter wyxwqkzil60/23/2024 1:40 PM EST Office Visit [facility] [address] [phone] Eduard Parry MD [address] [place] [phone] 4 weekT[facility]O [facility] CenterComment on above:4 weekStart: 07-24-2023 End: 65-44-5446Qdiilww encounter /21/2024 9:30 AM EST Appointment [facility] Non-Invasive Cardiology [address] [place] [address] [phone] Eduard Parry MD [address] [place] [phone] EPIC KELLY W [facility] Non-Invasive CardiologyComment on above:EPIC KELLY W [facility]USStart: 04-29-2023 Annual Wellness Visit (Medicare)Annual Wellness Visit (Medicare)[facility]ENTERStart: 82-39-3433Efrdw panelLipidsBON CITY HOSPITALStart: 03-25-2023 End: 61-78-8374Dgjxjplgi to same day surgery yhipbl5603/25/2023 11:22 AM EDT - 03/25/2023 1:18 PM EDT Surgery [facility] [address] [place] [address] Drew Rodriguez, DDS [address] [place] [address] DENTAL RESTORATIONS [facility] SurgeryComment on above:DENTAL RESTORATIONSStart: 03-25-2023 End: 92-75-3439Nwqvzburki vxjsvcycdmng42/23/2023 11:22 AM EDT Anesthesia Event [facility] [address] [place] [address] Mojgan Germain DO [address] [place] [address] [facility] SurgeryStart: 03-25-2023 End: 09-01-6943WPBFDV RESTORATIONSDENTAL RESTORATIONS Routine scheduled Caries 03/25/2023 11:22 AM EDTMetroHealthStart: 03-25-2023 End: 99-28-4748Gsklahbxn to same day surgery kxkjtd8903/25/2023 9:26 AM EDT - 03/25/2023 11:22 AM EDT Surgery [facility] [address] [place] [address] Drew Rodriguez DDS [address] [place] [address] DENTAL RESTORATIONS [facility] SurgeryComment on above:DENTAL RESTORATIONSStart: 03-25-2023 End: 64-64-7271Cdjyghldub pqzfmncxzabh70/23/2023 9:26 AM EDT Anesthesia Event [facility] [address] [place] [address] Mojgan Germain DO [address] [place] [address] ( Work) [facility] SurgeryStart: 03-25-2023 End: 49-39-4448DVEFFY RESTORATIONSMetroHealthStart: 56-70-4325Juovkzigej hospital visit by physicianMansfield Hospital Ambulatory SurgeryStart: 03-25-2023 End: 95-06-6155Jbiiwku encounter dmzuktzxz51/23/2023 9:00 AM EDT Procedure Visit [facility] Dent[facility] [address] [place] [address] Drew Rodriguez DDS [address] [place] [address] [facility] CenterStart: 16-18-1695Kwdvttbjn vaccinationInfluenza Vaccine (#1)[facility] HospitalStart: 03-01-2023 End: 76-86-0283Ymboukm encounter mbpubcmso66/29/2023 3:00 PM EDT Office Visit [facility] [address] [place] [address] Mitchell García MD [address] [place] [address] [facility] Start: 15-20-3950GSVYV-19 Vaccine ( season)COVID-19 Vaccine ( season)[facility] HospitalStart: 05-20-5668Limfhnziu vaccinationInfluenza Vaccine (#1)[facility] HospitalStart: 20-91-4547Gndozualv vaccinationBON CITY HOSPITALStart: 08-08-2022 End: 50-20-4087Tfdzzgi encounter procedureTOLEDO [facility]: 01-65-1217Phlxlrppyn A1c eexomjlakvmA6H test (Diabetic or Prediabetic)[facility]ENTERStart: 94-18-9263Inudviam specific antigen measurementProstate Specific Antigen (PSA) Screening or MonitoringMary Washington Hospitalart: 89-79-6857Bjvqy [facility] CampusStart: 66-70-8210Lkpxrotxw vaccinationFlu vaccine (Season Ended)[facility]ENTERStart: 01-01-2022 Influenza vaccinationFlu vaccine (#1)[facility] Hospitalart: 11-02-2021 Lipid panelLipid screenFairfield Medical Center [employer] Phone: start: 08-09-2021 End: 29-68-6251Pksgmqv encounter procedureTOLEDO H[facility]ITAL [facility] of [facility]art: 60-33-8897Vghau panelLipid screenFairfield Medical Center [employer] Work Phone: start: 32-34-5307BNVKP-19 Vaccine (4 - Booster for Pfizer series)COVID-19 Vaccine (4 - Booster for Pfizer series)[facility]ITALStart: 02-81-0480Jjpgwqpqa vaccinationGlenbeigh HospitalStart: 08-10-2020 End: 64-42-1305Vbuoav Visit08/10/2020 Office Visit Urology Arnoldo Coello MD [address] [place] [address], [address] [place], [id number] [phone] [facility] Part of [facility]: 2020 Pneumococcal 65+ years Vaccine (1 - PCV)Pneumococcal 65+ years Vaccine (1 - PCV) [facility]ITALStart: 81-23-6501Uadvxvlecctv 65+ years Vaccine (1 of 1 - PCV)Pneumococcal 65+ years Vaccine (1 of 1 - PCV)[facility] Start: 26-38-7251Jgjilpzjobyq 65+ years Vaccine (1 of 1 - PPSV23)Pneumococcal 65+ years Vaccine (1 of 1 - PPSV23)[facility] HospitalStart: 62-97-1185Yluizabsouzp vaccinationPneumococcal Vaccine(s) (65+ yrs) (1 - PCV)MetroHealthStart: 93-91-7574Bjegd panelLipid [employer] GroupK[facility]: 47-46-9115Abche screenLipid [facility] Work Phone: start: 38-27-7185Aijbsduew vaccinationFlu vaccine (#1) [facility]: 01-21-2020 End: 05-18-4028Tymzsjijtwg26/20/2020 Appointment Radiology Radiologist, [facility] RadiologyStart: 39-95-3818Rfnejsovw vaccinationFlu vaccine (#1)[facility] Work Phone: start: 10-70-6864Xhvelb Wellness Visit (AWV)Annual Wellness Visit (AWV)[facility] HospitalStart: 70-92-8123Pmuxvgywx B (HBV) Vaccine (optional start 60+ years)Hepatitis B (HBV) Vaccine (optional start 60+ years) MetroHealthStart: 30-39-8236Degsgkzanyv Syncytial Virus (RSV) or age 60 yrs+ (1 - 1-dose 60+ series)Respiratory Syncytial Virus (RSV) or age 60 yrs+ (1 - 1-dose 60+ series)[facility]ENTERStart: 2015 Respiratory Syncytial Virus (RSV) or age 60 yrs+ (1 - Risk 60-74 years 1-dose series)Respiratory Syncytial Virus (RSV) or age 60 yrs+ (1 - Risk 60-74 years 1-dose series)[facility] CenterStart: 83-66-0442PZA vaccine (optional 60+ years)RSV vaccine (optional 60+ years)MetroHealthStart: 46-72-9676Xktjh cancer screen colonoscopyCoscci hospital lima cancer screen colonoscopyGlenbeigh Hospital Work Phone: start: 08-04-5025Mgbxdphslqhn 50+ years Vaccine (1 of 1 - PCV)Pneumococcal 50+ years Vaccine (1 of 1 - PCV)[facility] Start: 79-34-1640Dbenuxopumnh vaccinationPneumococcal Vaccine(s) (50+ yrs) (1 of 1 - PCV)MetroHealthStart: 34-44-1691Yuimpmur (RZV) Vaccine (1 of 2)Shingles (RZV) Vaccine (1 of 2)MetroHealthStart: 78-63-3945Ztgzavyc Vaccine (1 of 2) Shingles Vaccine (1 of 2)[facility]lenbeigh HospitalStadjuntas: 98-80-7089Siozebdgx for malignant neoplasm of colonBON [facility]: 09-08-7583Nkdyik wellness visit Annual Wellness Visit (G0438)MetroHealthStart: 51-63-4869HHeQ/Tdap/Td vaccine (1 - Tdap)DTaP/Tdap/Td vaccine (1 - Tdap)[facility]: 26-08-5578Sipqzxucg A (HAV) Vaccine (optional start 19+ years)Hepatitis A (HAV) Vaccine (optional start 19+ years)MetroHealthStart: 84-27-8355Iyiuozzeg C screeningBON CITY HOSPITALStart: 38-78-4024Vgnnlyi + diphtheria + acellular pertussis vaccine (product)Tdap BoosterMetroHealthStart: 58-19-2784ZWK screenHIV [facility] [employer] Work Phone: start: 57-16-0912RKF screeningHIV screenGlenbeigh Hospital Start: 20-90-6786QTQLL-19 Vaccine (1)COVID-19 Vaccine (1)[facility] [facility] Phone: start: 58-60-2434Gmyaiezqwt ScreenDepression Screen [facility] HospitalStart: 74-70-8523VWrR/Tdap/Td vaccine (1 - Tdap)DTaP/Tdap/Td vaccine (1 - Tdap)[facility] Phone: start: 21-38-9062LLWMU-19 Vaccine (1)COVID-19 Vaccine (1)[facility] HospitalStart: 84-26-2694SLAQL-19 Vaccine (#1)COVID-19 Vaccine (#1)[facility]ENTERStart: 97-51-3868Wpetra Wellness Visit (AWV)Annual Wellness Visit (AWV)[facility]ENTERStart: 01-09-2343TUYIW-19 Vaccine (3912-0317 formulation)COVID-19 Vaccine ( formulation)MetroHealthStart: 1955 Hepatitis C screenHepatitis C [facility] [employer] [facility] Phone: start: 09-27-9239Pdbbeefqr C screeningHepatitis C [facility] HospitalStart: 79-92-7323Zbzfcsviq for malignant neoplasm of colon ColonoscopyMetroSelect Medical Specialty Hospital [facility] panel - Blood by Automated countCOMPLETE BLOOD COUNT Lab Routine Pre-op examination 03/15/2023 12:39 PM EDTMetroHeal End: 39-57-6532DMWTE-19 AmbulatoryCOVID-19 Ambulatory Lab Routine Preop testing 1 Occurrences starting 01/15/2020 until 01/15/2020[facility]Mar[facility] on above:1 Occurrences starting 01/15/2020 until 01/15/2020COVID-19 Ambulatory COVID-19 Ambulatory Lab Routine Preop testing 01/15/2020 9:46 AM [facility], [place]DENTAL RESTORATIONSDENTAL RESTORATIONS Routine scheduled Caries MetroHealthEc routine ecg w/least 12 lds trcg only w/o i&rEKG 12 LEAD - PERFORM MUSE Routine Pre-op examination Ordered: 03/15/2023[employer] Work Phone: comykgg on above:Ordered: 03/15/2023 End: 90-06-4855Lysneotc cardiac holter monitor (3 days - 15 days)[employer] [facility] Card Capture ServicesBarton County Memorial Hospital on above:1 Occurrences starting 02/18/2025 until 02/18/2025 End: 29-92-8474Gzdxzwxt cardiac holter monitor (48 hrs - 15 days)[facility] smsPREPBarton County Memorial Hospital on above:1 Occurrences starting 07/15/2023 until 07/15/2023 Oxygen therapyInitiate Oxygen Therapy Protocol Respiratory Care Routine Daily until discontinued starting 01/01/2020[facility] StillSecureSAINT LU[facility] RO[facility], KYComment on above:Daily until discontinued starting 01/01/2020 Immunizations Immunization DateImmunizationNotesCare YzazywvnUodddlgv17-53-2927Kqfquw Monovalent (12+ yrs) SARS-COV-2 (COVID-19) vaccine, mRNA, spike protein, LNP, pres. free, 30mcg/0.3mL dose (TNR=610)[facility] [employer] Work Phone: [phone]zPwfufo94-63-2298Jaceej Monovalent (12+ yrs) SARS-COV-2 (COVID-19) vaccine, mRNA, spike protein, LNP, pres. free, 30mcg/0.3mL dose (WKU=477)[facility] [employer] [facility] Work Phone: [phone] Monovalent (12+ yrs) SARS-COV-2 (COVID-19) vaccine, mRNA, spike protein, LNP, pres. free, 30mcg/0.3mL dose (XHO=753)[facility] [employer] Work Phone: [facility] Payers DatePayer CategoryPayerPolicy [id number] [place] [place] [id number] 2018-Present [phone] [address] [place] [id number] 2018Medicaid [place] MEDICA[place] [facility] xxxxxxxxxxxx 2018-Present [phone] [address] [place] [id number]mi --Stand AloneDENTAL- MEDICAID [id number] 2018Medicaid [id number] 2015MedicareMEDICARE MEDICARE PART A AND B [id number] 2014-Present [phone] [address] [place], [place] [id number] 2015Medicare MEDICARE MEDICARE PART A AND B xxxxxxxxxxx 2014-Present [phone] [address] [place], [id number] 1992MedicareMEDICARE MEDICARE PART A & B [id number] 1991-Present [address] [place] [address] Medicare [id number] [id number] [id number] [id number] 2.16.840.1.476275.3.57[id number] 2.16.840.1.522123.3.57[id number] 2.16.840.1.965334.3.57[id number] 2..840.1.968852.3.57[id number] 2..840.1.908350.3.57[id number] 2.16.840.1.238448.3.57[id number] 2..840.1.147930.3.57[id number] 2.16.840.1.423054.3.57[id number] 2..840.1.502334.3.57[id number] 2.16.840.1.770[id number] Social History DateTypeDetailFacilityStart: 01-01-2020 End: 94-80-4006Ufukdee smoking status NHISNever smokerFairfield Medical Center StillSecureart: 01-01-2020 End: 86-99-8692Wtbxmqi use and exposureNever usedK[facility] Health [facility]: 01-01-2020 End: 26-25-4932Avtxaos intakeCurrent non-drinker of alcohol (finding)[employer] Phone: start: 08-05-2019 End: 03-27-1782Ihnybzo SDOH Social Connections [address] [place] [address]: 36-11-4759Tiq Assigned At BirthNot on Primcogent SolutionsTwin [facility] HospitalHealthMedia Work Phone: exposure to SARS-CoV-2 (event)Not sureOhioHealth [facility] Cameliasnapp.me smoking status NHISTobacco smoking consumption unknownMetroHealth Start: 08-05-2019 End: 25-83-9491Otreee identityNot on [facility] CenterStart: 08-05-2019 End: 22-28-0827Dttkzsb of Social functionEVERETT HOSPITALtutoria GmbHFrequency of Communication with Friends and FamilyNot on [facility] Systemtutoria GmbHStart: 07-13-2012 End: 24-80-7953VskHeas (finding)MetroHealthAre you now , , , , never or living with a partner?Never marriedHealthsouth Medical CenterSearchperience Inc. Clinical Notes 01-07-2023 to 02-18-2025 Note Date & HnjjFtawDfpzgaxs81-77-1123 History of Present illness Narrative* Trina Michael - 02/18/2025 11:30 AM EDT Patient instructed on extended nuclear monitoring technician indications and use. Diary sent with patient. documented in this [facility] District[facility]ience Inc.05-08-2025 History of Present illness Narrative* Oseas Lopez DDS - 10/08/2024 11:22 AM EDT ----- October at 1:22:42 PM ----- ----- Provider: Chaitanya Samson DDS -- Clinic: [facility] ----- OR EVALUATION Patient presents for evaluation to determine best course of treatment due to history of Lordosis, schizophrenia, developmental delay Patient is accompanied by caregiver for today's appointment. Patient partially cooperated for a partial intraoral exam. Clinical findings: caries, signs of periodontitis and Missing teeth. Extremely poor OH, instructed caregivers to assist in brushing and flossing. It is best suited that this patient have full comprehensive examination, radiographs and treatment completed in the OR setting. Provided consent form for guardian and instructions on how to fax it over. Explained that the patient will be added to our OR waiting list, and the legal guardian will be contacted once a time slot becomes available. Legal Guardian: Alternate Formation Fracturing Operator Grace Sanders Next Visit: OR ----- Signed on October at 1:27:11 PM ----- ----- Provider: Chaitanya Samson DDS -- Clinic: [facility] ----- documented in this [id number] Hospital Discharge instructions* Discharge Instructions* Emily Holcomb RN - 03/25/2023 12:00 PM EDT Dental extraction Instructions Biting on Gauze to Control Bleeding Bleeding may occur for some time after you extraction. In most cases this bleeding can be easily controlled by placing a piece of clean gauze DIRECTLY over the empty tooth socket. Then make sure thatyou bite firmly on this gauze for 30 to 60 minutes. Use the gauze we supplied to you in the bag. Wash your hands with soap and water before touching the gauze and placing it in your mouth. Place the used gauze from your mouth in a plastic bag and dispose the bag in a trash container. Make sure to wash your hands again when you are done touching the used gauze and before touching anything else. If a small amount of bleeding continues after 45 minutes then repeat these instructions. Sometimes biting a tea bag may be helpful in controlling minor bleeding. Very light bleeding for 2 days is not uncommon. If heavy bleeding is still persistent during normal clinic hours than call the Clinic where the extraction was done to speak with an oral surgeon. [facility] [phone]. HELPING THE HEALING PROCESS AND STOPPING THE BLEEDING FOR THE NEXT 24 HOURS (1 DAY) AFTER THE EXTRACTION: DO NOT RINSE YOUR MOUTH OR SPIT 2. DO NOT DRINK ANY HOT LIQUIDS SUCH SOUP, COFFEE, TEA, HOT CHOCOLATE AVOID HEAVY LIFTING, BENDING OR OTHER STENUOUS EXERCISES SLEEP WITH 2 PILLOWS OR IN A RECLINER CHAIR. KEEPING HEAD ELEVATED WILL REDUCE SWELLING. SUTURE WILL DISSOLVE IN 7-10 DAYS FOR THE NEXT 72 HOURS (3 DAYS) AFTER THE EXTRACTION: DO NOT SMOKE OR DRINK ALCOHOL DO NOT DRINK OR SUCK FROM A STRAW OR ANYTHING ELSEDO NOT DRINK. Stitches may have been placed to help healing. Your surgeon will advise you if you need to return to have them removed. TOOTH BRUSHING On the day of the extraction it is best to avoid brushing the teeth right next to the extraction site. On the next day you can start brushing ALL your teeth but in a gentle fashion. Remember to not rinse strongly because it may cause you to start bleeding from the extraction site again. SWELLING AND PAIN After the extraction you may feel some pain and experience some swelling. An ice pack of unopened bag of frozen peas of corn applied to the area should keep the swelling down. Put the ice pack on youface for 10 minutes and then leave it off for the next 20 minutes. You can repeat this patter as you feel is necessary for up to 24 hours after the extraction. To avoid injury, make sure that adults or children avoid biting or chewing on their lips of cheeks, which may be numb following an extraction. If your pain or swelling seems to be getting worse or you feel as though something is not right then call your dentist, as directed above. ANTIBIOTICS AND PAIN MEDICATION If antibiotics have been prescribed then you should take them as directed; this includes taking allthe antibiotic (or liquid) pills that were prescribed. If you don't finish them completely a serious infection could result. You may have little of no discomfort after the extraction. If you have minor pain then you may wantto take acetaminophen (Tylenol) or ibuprofen (Motrin). It is very important that before taking any medications that you read and follow the directions and warnings that come with these products so you know whether they are right for you and you situation. If you have any questions on whether these medications are right for you, first talk to your doctor or pharmacist before taking the medication. Your surgeon may have given you a written prescription for pain relief. It is important that if youdecide to take it you read and understand all the precautions, warnings and directions that come with the medication. If you have any questions on whether the medication is right for you, first talk to your doctor or pharmacist before taking the medication. The pain medication prescription that your dentist gave you may contain a narcotic (like codeine). If so, most narcotic pain medications may upset your stomach. If so, then it is best to take them with food. The pain medication prescription that you were given can also make you drowsy or make you act strangely. If so, you should limit or stop activities such as driving a motor vehicle, operate machinery or other activities that require your full attention. EATING AND DRINKING A soft or liquid diet may be best for you after a difficult extraction. For a simpler extraction just make sure you do your chewing with those teeth that are NOT near the extraction site. POSTOPERATIVE INSTRUCTION AFTER SEDATION / GENERAL ANESTHESIA If you had general anesthesia of IV sedation, do not drive or operate machinery for 24 hours. A responsible adult should be with you for the remainder of the day. When starting oral intake, be sure to consume CLEAR LIQUIDS first. Clear liquids consist of water, Sprite, le davidson, Jell-O, and non-pulp containing juices such as cranberry and apple juice. Once tolerating clear-liquids, you may advance your diet. Be sure to follow the specific diet instructions from your doctor according to the type of surgery you have had. It is important that you take any narcotic containing pain medications with food. Patients should not participate in any strenuous activity. Standing and sitting up too quickly following surgery can also result in dizziness and exacerbate these problems. It is also important that patients be supervised for an appropriate amount of time following sedation in order to ensure that they remain safe in the post- operative period. Under NO circumstances should a patient drive the day of surgery or participate in any important decisions. NAUSEA & VOMITING Nausea is not uncommon after surgery. Sometimes pain medications may be the cause. In the event of nausea and/or vomiting following surgery, do not take anything by mouth for at least an hour including the prescribed medicine. You should then sip on Coke, tea, or le davidson. You should sip slowly over a 15- minute period. When the nausea subsides, you can begin taking solid foods and the prescribed medicine. You may take the anti-nausea medication if prescribed. If the above is not helpful, contact your surgeon. Please if you have any questions or concerns please contact us: [facility] . Ask for the behavioral health technician de ionizer operator (after hours). model engine mechanic Clinic Hours: Mon-Fri 8:30 am to 4:30 pm. PERIOPERATIVE DISCHARGE/HOME-GOING INSTRUCTIONS ANESTHESIA - GENERAL (ADULT) Special Care Needs: Activity: Rest at home today and tomorrow, then progress to your regular activities as tolerated. Diet: Clear liquids are best tolerated at first. If you are not nauseated, you can progress your diet to solid foods as tolerated. Possible post-operative precautions: Call you doctor or clinic for: 1. Signs of infection such as fever or chills. 2. Severe pain that in not relieved by your prescription pain medicine. 3. You may have a sore throat - it is usually gone in 1 to 2 days. Post-anesthesia safety: Possible side effects include drowsiness, dizziness, or inability to think clearly. For your safety, do not drive, drink alcoholic beverages, take any unprescribed medication or make any important decisions for 24 hours. A responsible adult should be with you for 24 hours. If your are not able to urinate in 8 hours after surgery or you become very uncomfortable and can turinate, call [phone] or come to the emergency room. documented in this [id number] Miscellaneous Notes* OP Note - Drew Rodriguez DDS - 03/25/2023 10:31 AM EDT Brief Operative Note [facility] OR 3 Naldo Mack 67 year old male Surgical Contact Serial Number: [id number] Preoperative Diagnosis: Caries [K02.9] Anxiety (F41.9) Developmental delay(R62.50) Postoperative Diagnosis: Developmental delay(R62.50) Procedures: Full mouth x rays-34353 Exam-98097 Extraction-48929 Tenriism-75091 SRP-52119 Surgeon(s): Surgeon(s): Drew Rodriguez DDS Staff: Cattle Dehorner Nurse: Violet Tilley Anesthesia: General Anesthesiologist: Maria Esther Alvarado MD FBI INVESTIGATOR: Arnoldo Flood APRN-FBI INVESTIGATOR Anesthesia Student: Malorie Purvisurgical Case Number Data Unavailable Surgeon: Drew Sawant DDS General Road Supervisor Surgeon: Gisselle Selby DDS Anesthesia: General- Nasal ETT Estimated Blood Loss: 5-10 cc IV Fluids:1000 cc Urine Output: Not measured. Findings: The patient was brought to the operating room and placed in the supine position on the operating room table. Following satisfactory induction of GA. The patient was intubated with a nasal endotracheal tube. He was then prepped and drapped in the usual sterile fashion for dental procedures. Full mouth series were then taken and an oral examination was completed. A moistened throat pack was then placed. Full mouth scaling was then performed. The radiographs were examined by the attending and the resident and used in conjunction with th oral exam to formulate a treatment plan. The restorative aspect of the treatment plan included the following ; 7-MILF,8-MILFD, 9-MILF composite synagogue. 14- MOL, 30- OML amalgam synagogue. These restorations were placed following excavation of the carious lesions on each tooth. The surgical aspect of the treatment plan included the following extraction(s) and/or root removal:Teeth # 12 3.0 chromic gut sutures were placed in all extraction sites. The remaining dentition was then polished with prophy paste. The oral cavity was irrigated and suctioned then the throat pack was removed. Fluoride treament was placed on the remaining dentition. Thepatient tolerated the procedure well was extubated in the operating room, and taken to the PACU in stable condition. Complications: None Status at end of surgery: Stable Medications: No outpatient medications have been marked as taking for the 03/25/23 encounter (Hospital Encounter). Dictated by: Gisselle Selby DDS: Drew Sawant DDS was present for the critical portions of the procedure. Gisselle Selby DDS 03/25/2023 11:52 AM * Blood Attestation - Maria Esther Alvarado MD - 03/25/2023 9:48 AM EDT Blood Attestation: ATTESTATION OF INFORMED CONSENT FOR BLOOD: The transfusion of blood and/or blood components were discussed with the patient and/or legal correspondence representative. The risks, benefits and alternatives were reviewed. Questions regarding blood transfusions were answered. The patient /or the patient s legal correspondence representative agree with the plan for transfusion of blood and/or blood components. Spoke to sister: Carlee De León (patient's guardian); agreeable to blood. * Brief Operative Note - Gisselle Mai DDS - 03/25/2023 9:26 AM EDT Brief Operative Note P[facility] OR 3 Naldo Mack 67 year old male Surgical Contact Serial Number: [id number] Preoperative Diagnosis: Caries [K02.9] Anxiety (F41.9) Developmental delay(R62.50) Postoperative Diagnosis: Developmental delay(R62.50) Procedures: Full mouth x rays-79756 Exam-14450 Extraction-42176 Tenriism-67851 SRP-21417 Surgeon(s): Surgeon(s): Drew Rodriguez DDS Staff: Cattle Dehorner Nurse: Violet Tilley Anesthesia: General Anesthesiologist: Maria Esther Alvarado MD FBI INVESTIGATOR: Arnoldo Flood APRN-CRNA Anesthesia Student: Anila Purvis Specimen(s): * No specimens in log * Estimated Blood Loss: 5-10 cc Lines/Drains: Peripheral IV Access: 03/25/23 0917 22 gauge Posterior;Right Hand (Active) Temporarily Retained Foreign Object: No Findings: Normal Complications: None Status at end of surgery: Stable Activity: bed to chair with responsible adult Surgical wound class: No wound. Patient Class: Outpatient Surgery. Is this a patient scheduled as an outpatient that needs to be admitted as an inpatient? No Drew Phelan DDS was present in the OR for the critical portion of the procedure and procedure sign-out. Signed by Gisselle Selby DDS 03/25/2023 9:59 AM documented in this [id number] Surgery Surgical operation note* OP Note - Drew Rodriguez DDS - 03/25/2023 10:31 AM EDT Brief Operative Note P[facility] OR 3 Naldo Mack 67 year old male Surgical Contact Serial Number: [id number] Preoperative Diagnosis: Caries [K02.9] Anxiety (F41.9) Developmental delay(R62.50) Postoperative Diagnosis: Developmental delay(R62.50) Procedures: Full mouth x rays-17619 Exam-21047 Extraction-35413 Tenriism-87042 SRP-20018 Surgeon(s): Surgeon(s): Drew Rodriguez DDS Staff: Cattle Dehorner Nurse: Violet Tilley Anesthesia: General Anesthesiologist: Maria Esther Alvarado MD FBI INVESTIGATOR: Arnlodo Flood APRN-CRNA Anesthesia Student: Malorie Purvisurgical Case Number Data Unavailable Surgeon: Drew Sawant DDS General Road Supervisor Surgeon: Gisselle Selby DDS Anesthesia: General- Nasal ETT Estimated Blood Loss: 5-10 cc IV Fluids:1000 cc Urine Output: Not measured. Findings: The patient was brought to the operating room and placed in the supine position on the operating room table. Following satisfactory induction of GA. The patient was intubated with a nasal endotracheal tube. He was then prepped and drapped in the usual sterile fashion for dental procedures. Full mouth series were then taken and an oral examination was completed. A moistened throat pack was then placed. Full mouth scaling was then performed. The radiographs were examined by the attending and the resident and used in conjunction with th oral exam to formulate a treatment plan. The restorative aspect of the treatment plan included the following ; 7-MILF,8-MILFD, 9-MILF composite synagogue. 14- MOL, 30- OML amalgam synagogue. These restorations were placed following excavation of the carious lesions on each tooth. The surgical aspect of the treatment plan included the following extraction(s) and/or root removal:Teeth # 12 3.0 chromic gut sutures were placed in all extraction sites. The remaining dentition was then polished with prophy paste. The oral cavity was irrigated and suctioned then the throat pack was removed. Fluoride treament was placed on the remaining dentition. Thepatient tolerated the procedure well was extubated in the operating room, and taken to the PACU in stable condition. Complications: None Status at end of surgery: Stable Medications: No outpatient medications have been marked as taking for the 03/25/23 encounter (Hospital Encounter). Dictated by: Gisselle Selby DDS: Drew Sawant DDS was present for the critical portions of the procedure. Gisselle Selby DDS 03/25/2023 11:52 AM [id number] Progress note* Blood Attestation - Maria Esther Alvarado MD - 03/25/2023 9:48 AM EDT Blood Attestation: ATTESTATION OF INFORMED CONSENT FOR BLOOD: The transfusion of blood and/or blood components were discussed with the patient and/or legal correspondence representative. The risks, benefits and alternatives were reviewed. Questions regarding blood transfusions were answered. The patient /or the patient s legal correspondence representative agree with the plan for transfusion of blood and/or blood components. Spoke to sister: Carlee De León (patient's guardian); agreeable to blood. [employer] Work Phone: 1(611) 930-687210-23-2023 Surgery Postoperative evaluation and management note* Brief Operative Note - Gisselle Mai DDS - 03/25/2023 9:26 AM EDT Brief Operative Note P[facility] OR 3 Naldo Mack 67 year old male Surgical Contact Serial Number: [id number] Preoperative Diagnosis: Caries [K02.9] Anxiety (F41.9) Developmental delay(R62.50) Postoperative Diagnosis: Developmental delay(R62.50) Procedures: Full mouth x rays-68895 Exam-64472 Extraction-93022 Tenriism-64393 SRP-10567 Surgeon(s): Surgeon(s): Drew Rodriguez DDS Staff: Cattle Dehorner Nurse: Violet Tilley Anesthesia: General Anesthesiologist: Maria Esther Alvarado MD FBI INVESTIGATOR: Arnoldo Flood APRN-MARILY Anesthesia Student: Anila Purvis Specimen(s): * No specimens in log * Estimated Blood Loss: 5-10 cc Lines/Drains: Peripheral IV Access: 03/25/23 0917 22 gauge Posterior;Right Hand (Active) Temporarily Retained Foreign Object: No Findings: Normal Complications: None Status at end of surgery: Stable Activity: bed to chair with responsible adult Surgical wound class: No wound. Patient Class: Outpatient Surgery. Is this a patient scheduled as an outpatient that needs to be admitted as an inpatient? No Drew Phelan DDS was present in the OR for the critical portion of the procedure and procedure sign-out. Signed by Gisselle Selby DDS 03/25/2023 9:59 AM [employer] Work Phone: 1(649) 915-281710-23-2023 History and physical note* Drew Rodriguez DDS - 03/25/2023 9:11 AM EDT Surgical Attestation: I have reviewed the patient's History and Physical Examination. I have personally seen and evaluated the patient, repeating hernandez portions. There is no significant interval change. Surgery is still indicated. Yes Consent reviewed and signed by patient/family: Yes Operative site verified and marked: site verified but not marked as not anatomically possible Drew Rodriguez DDS 03/25/2023 9:12 AM [id number] History and physical note* Drew Rodriguez DDS - 03/25/2023 9:11 AM EDT Surgical Attestation: I have reviewed the patient's History and Physical Examination. I have personally seen and evaluated the patient, repeating hernandez portions. There is no significant interval change. Surgery is still indicated. Yes Consent reviewed and signed by patient/family: Yes Operative site verified and marked: site verified but not marked as not anatomically possible Drew Rodriguez DDS 03/25/2023 9:12 AM documented in this [id number] History of Present illness Narrative* Drew Rodriguez DDS - 03/25/2023 7:18 AM EDT ----- Saturday, March 25, 2023 at 11:46:41 AM ----- ----- Provider: [id number] - Drew Lopez DDS -- Clinic: [facility] ----- [place] notes, pt is ready for tx pt had fair OH. restos are deep, but nerves are receded, so fillings placed. 7,8,9. 8 had two separate cavities. ext was easy with elevator, took some time. tooth no. 2 was functioning in occlusion, with no symptoms, pt not complaining, so we kept it. resident felt dizzy and had to leave at the end. Brief Operative Note [facility] OR 3 Naldo Mack 67 year old male Surgical Contact Serial Number: [id number] Preoperative Diagnosis: Caries [K02.9] Anxiety (F41.9) Developmental delay(R62.50) Postoperative Diagnosis: Developmental delay(R62.50) Procedures: Full mouth x rays-05728 Exam-54002 Extraction-94144 Tenriism-38281 SRP-81493 Surgeon(s): Surgeon(s): Drew Rodriguez DDS Staff: Cattle Dehorner Nurse: Violet Tilley Anesthesia: General Anesthesiologist: Maria Esther Alvarado MD FBI INVESTIGATOR: Arnoldo Flood APRN-CRNA Anesthesia Student: Malorie Purvisurgical Case Number Data Unavailable Surgeon: Drew Sawant DDS General Road Supervisor Surgeon: Gisselle Selby DDS Anesthesia: General- Nasal ETT Estimated Blood Loss: 5-10 cc IV Fluids:1000 cc Urine Output: Not measured. Findings: The patient was brought to the operating room and placed in the supine position on the operating room table. Following satisfactory induction of GA. The patient was intubated with a nasal endotracheal tube. He was then prepped and drapped in the usual sterile fashion for dental procedures. Full mouth series were then taken and an oral examination was completed. A moistened throat pack was then placed. Full mouth scaling was then performed. The radiographs were examined by the attending and the resident and used in conjunction with th oral exam to formulate a treatment plan. The restorative aspect of the treatment plan included the following ; 7-MILF,8-MILFD, 9-MILF composite synagogue. 14- MOL, 30- OML amalgam synagogue. These restorations were placed following excavation of the carious lesions on each tooth. The surgical aspect of the treatment plan included the following extraction(s) and/or root removal:Teeth # 12 3.0 chromic gut sutures were placed in all extraction sites. The remaining dentition was then polished with prophy paste. The oral cavity was irrigated and suctioned then the throat pack was removed. Fluoride treament was placed on the remaining dentition. Thepatient tolerated the procedure well was extubated in the operating room, and taken to the PACU in stable condition. Complications: None Status at end of surgery: Stable Medications: No outpatient medications have been marked as taking for the 03/25/23 encounter (Hospital Encounter). Dictated by: Gisselle Selby DDS: Drew Sawant DDS was present for the critical portions of the procedure. Gisselle Selby DDS 03/25/2023 11:52 AM documented in this [id number] Telephone encounter Note* Telephone Encounter - Laxmi Maloney RN - 03/18/2023 1:41 PM EDT Informed Consent for dental surgery & Anesthesia consent obtained and scanned into em[employer]. Scheduled for surgery 03/25/2023. [id number] Miscellaneous Notes* Telephone Encounter - Laxmi Maloney RN - 03/18/2023 1:41 PM EDT Informed Consent for dental surgery & Anesthesia consent obtained and scanned into emoteShare. Scheduled for surgery 03/25/2023. documented in this [id number] Instructions* Patient Instructions* Mojgan Germain DO - 03/15/2023 11:48 AM EDT On the morning of your surgery please take only the following medications, with a small sip of water: Zofran, flupheazine, Quetiapine, Lovastatin, tamsulosin, Lamotrigine, Lorazepam, omeprazole Please do not eat or drink anything after midnight of the night prior to your procedure. You can have small sips of water the morning of to help take any AM medications. Do not take your colace the morning of your procedure. Please avoid taking medications, supplements or multivitamins not listed above the day of your surgery. Please avoid taking NSAIDs (Ibuprofen, Motrin, Aleve, etc.) for at least the 5 days prior to your procedure; these medications can increase your risk of bleeding during the procedure. Please avoid taking aspirin for 7 days prior to your procedure. This medication increases your riskof bleeding during the procedure. documented in this [id number] Instructions* Patient Instructions* Mojgan Germain DO - 03/15/2023 11:48 AM EDT On the morning of your surgery please take only the following medications, with a small sip of water: Zofran, flupheazine, Quetiapine, Lovastatin, tamsulosin, Lamotrigine, Lorazepam, omeprazole Please do not eat or drink anything after midnight of the night prior to your procedure. You can have small sips of water the morning of to help take any AM medications. Do not take your colace the morning of your procedure. Please avoid taking medications, supplements or multivitamins not listed above the day of your surgery. Please avoid taking NSAIDs (Ibuprofen, Motrin, Aleve, etc.) for at least the 5 days prior to your procedure; these medications can increase your risk of bleeding during the procedure. Please avoid taking aspirin for 7 days prior to your procedure. This medication increases your riskof bleeding during the procedure. documented in this [id number] Evaluation note* PSE Appt H&P - Mojgan Germain DO - 03/15/2023 11:40 AM EDT Presurgical Evaluation (Pre-Admission Testing) Consultation Naldo Mack, [id number] 67 year old Male 03/15/2023 Consult placed to PSE by Dr. Rodriguez due to significant PMH of Patient needs a PSE TELEPHONE ASSESSMENT Total Score: 1 1 Patient has history of hyperlipidemia. Naldo Mack is scheduled for (Bilateral) DENTAL RESTORATIONS on 03/25/2023. Preop diagnosis of: Pre-Op Diagnosis Codes: * Caries [K02.9] HISTORY OF PRESENT ILLNESS: Naldo Mack is a 67 year old year old male with a PMHx significant forHLD, GERD, developmental delay who presents to [facility] clinic for preoperative evaluation prior to dental synagogue on 03/25/[address] Rodriguez. Patient denies any recent illnesses, sick contacts, SOB, CP, palpitations or syncopal events. Patient is here for presurgical optimization and education prior to surgery. RECENT ILLNESS: Serious illness or hospitalization within the last six months. No STOP BANG: STOP-BANG Row Name 03/15/23 1142 History of sleep apnea? No Snoring No Tired/Fatigued No Observed Apnea No Pressure: Hypertension No BMI greater than 35 0 Age greater than 50 1 Neck circ greater than 40cm (15.75 ) No Gender male? 1 Score 2 ALLERGIES: No Known Allergies Patient Active Problem List: Anxiety [F41.9] Behavior disturbance [F91.9] Chronic constipation [K59.09] Chronic GERD [K21.9] Dysphagia [R13.10] Mixed hyperlipidemia [E78.2] Neurogenic bladder [N31.9] Schizophrenia (HCC) [F20.9] Severe developmental delay [R62.50] Tardive dyskinesia [G24.01] Urinary incontinence [R32] Incomplete bladder emptying [R33.9] Depressive disorder [F32.A] Chronic musculoskeletal pain [M79.18, G89.29] Caries [K02.9] SOCIAL HISTORY: has no history on file for drug use. MEDICAL HISTORY: No past medical history on file. SURGICAL HISTORY: No past surgical history on file. ANESTHESIA REVIEW OF SYSTEMS: Eyes/ENT: Eye Glasses Teeth: Broken Teeth and Missing Teeth Pulmonary: Negative Cardio-vascular: Negative G.I./ Hepatic: GERD Renal/: Negative Neurological: Negative Gynecological: N/A Psychiatric: developmental disability Musculoskeletal: Negative Endocrine: Negative Hematologic: Negative Constitutional: Negative Skin: negative PREVIOUS ANESTHETIC COMPLICATIONS: Anesthesia Complications No anesthesia history noted None FAMILY HISTORY OF ANESTHETIC COMPLICATIONS: No CURRENT MEDICATION LIST: No current outpatient medications on file. No current facility-administered medications for this visit. HEIGHT: Data Unavailable WEIGHT: No prior weight on file BMI: Data Unavailable VITAL SIGNS: Vitals: 03/15/23 1136 BP: 110/80 Pulse: 85 Temp: 98.5 F (36.9 C) SpO2: 97% PAIN ASSESSMENT: Severity: 0 Location: N/A AIRWAY EXAM: Mallampati score: 3 TMD: Adequate Neck Extension/ Flexion: Limited Mouth Opening: Not Adequate Dentition: Teeth chipped and Missing teeth Micrognathia/Overbite: No PHYSICAL EXAM: Eyes: Normal and PERRL ENT: Nares normal and Mucosa normal Pulmonary: Chest clear to auscultation bilaterally Cardiovascular: RRR with S1S2 and No murmurs, gallops, or rubs Abdomen: Soft and non-tender and Bowel sounds normal Extremities: No gross or obvious abnormalities Neurologic: Awake, alert, oriented and No motor deficits Psychiatric: alert and oriented to person, place and time, Appropriate mood/affect Skin: No gross or obvious abnormalities on visible skin FUNCTIONAL CAPACITY: Uses a wheel chair LABS, TESTS, CONSULTS ORDERED: Orders & Meds Signed During This Encounter Complete Blood Count Basic Metabolic Panel EKG 12 LEAD - PERFORM LABORATORY DATA: CBC None Basic Metabolic Panel None TESTS REVIEWED: I personally reviewed and interpreting and findings were: CXRay: No Chest x-ray found EK15-MAR-2023 12:02:18 Sinus rhythm with ventricular premature complex(es) ECHO: Last Echocardiogram: none found going back to 09/19/2011 Stress test date: Last StressTest: none found going back to 09/19/2011 Patient is medically optimized for surgery. This note will be forwarded to the referring provider. Patient should follow up with referring provider. Attestation: I have spent 30 total minutes. Visit activities: - preparing to see the patient (e.g., review of tests) - obtaining and/or reviewing separately obtained history - performing a medically appropriate examination and/or evaluation - counseling and educating the patiecounseling and educating the patient/family/caregivernt/family/caregiver - counseling and educating the patient/family/caregiver - ordering medications, tests, or procedures - referring and communicating with other health childcare director (when not separately reported) - documenting clinical information in the electronic or other health record - independently interpreting results (not separately reported) and communicating results to the patient/family/caregiver Patient Instruction On the morning of your surgery please take only the following medications, with a small sip of water: Zofran, flupheazine, Quetiapine, Lovastatin, tamsulosin, Lamotrigine, Lorazepam, omeprazole Please do not eat or drink anything after midnight of the night prior to your procedure. You can have small sips of water the morning of to help take any AM medications. Do not take your colace the morning of your procedure. Please avoid taking medications, supplements or multivitamins not listed above the day of your surgery. Please avoid taking NSAIDs (Ibuprofen, Motrin, Aleve, etc.) for at least the 5 days prior to your procedure; these medications can increase your risk of bleeding during the procedure. Please avoid taking aspirin for 7 days prior to your procedure. This medication increases your riskof bleeding during the procedure. Interviewer signature: Mojgan Germain DO 11:55 AM 03/15/2023 [id number] Miscellaneous Notes* PSE Appt H&P - Mojgan Germain DO - 03/15/2023 11:40 AM EDT Presurgical Evaluation (Pre-Admission Testing) Consultation Naldo Mack, [id number] 67 year old Male 03/15/2023 Consult placed to [facility] by Dr. Rodriguez due to significant PMH of Patient needs a PSE TELEPHONE ASSESSMENT Total Score: 1 1 Patient has history of hyperlipidemia. Naldo Mack is scheduled for (Bilateral) DENTAL RESTORATIONS on 03/25/2023. Preop diagnosis of: Pre-Op Diagnosis Codes: * Caries [K02.9] HISTORY OF PRESENT ILLNESS: Naldo Mack is a 67 year old year old male with a PMHx significant forHLD, GERD, developmental delay who presents to PSE clinic for preoperative evaluation prior to dental synagogue on 03/25/[address] Rodriguez. Patient denies any recent illnesses, sick contacts, SOB, CP, palpitations or syncopal events. Patient is here for presurgical optimization and education prior to surgery. RECENT ILLNESS: Serious illness or hospitalization within the last six months. No STOP BANG: STOP-BANG Row Name 03/15/23 1142 History of sleep apnea? No Snoring No Tired/Fatigued No Observed Apnea No Pressure: Hypertension No BMI greater than 35 0 Age greater than 50 1 Neck circ greater than 40cm (15.75 ) No Gender male? 1 Score 2 ALLERGIES: No Known Allergies Patient Active Problem List: Anxiety [F41.9] Behavior disturbance [F91.9] Chronic constipation [K59.09] Chronic GERD [K21.9] Dysphagia [R13.10] Mixed hyperlipidemia [E78.2] Neurogenic bladder [N31.9] Schizophrenia (HCC) [F20.9] Severe developmental delay [R62.50] Tardive dyskinesia [G24.01] Urinary incontinence [R32] Incomplete bladder emptying [R33.9] Depressive disorder [F32.A] Chronic musculoskeletal pain [M79.18, G89.29] Caries [K02.9] SOCIAL HISTORY: has no history on file for drug use. MEDICAL HISTORY: No past medical history on file. SURGICAL HISTORY: No past surgical history on file. ANESTHESIA REVIEW OF SYSTEMS: Eyes/ENT: Eye Glasses Teeth: Broken Teeth and Missing Teeth Pulmonary: Negative Cardio-vascular: Negative G.I./ Hepatic: GERD Renal/: Negative Neurological: Negative Gynecological: N/A Psychiatric: developmental disability Musculoskeletal: Negative Endocrine: Negative Hematologic: Negative Constitutional: Negative Skin: negative PREVIOUS ANESTHETIC COMPLICATIONS: Anesthesia Complications No anesthesia history noted None FAMILY HISTORY OF ANESTHETIC COMPLICATIONS: No CURRENT MEDICATION LIST: No current outpatient medications on file. No current facility-administered medications for this visit. HEIGHT: Data Unavailable WEIGHT: No prior weight on file BMI: Data Unavailable VITAL SIGNS: Vitals: 03/15/23 1136 BP: 110/80 Pulse: 85 Temp: 98.5 F (36.9 C) SpO2: 97% PAIN ASSESSMENT: Severity: 0 Location: N/A AIRWAY EXAM: Mallampati score: 3 TMD: Adequate Neck Extension/ Flexion: Limited Mouth Opening: Not Adequate Dentition: Teeth chipped and Missing teeth Micrognathia/Overbite: No PHYSICAL EXAM: Eyes: Normal and PERRL ENT: Nares normal and Mucosa normal Pulmonary: Chest clear to auscultation bilaterally Cardiovascular: RRR with S1S2 and No murmurs, gallops, or rubs Abdomen: Soft and non-tender and Bowel sounds normal Extremities: No gross or obvious abnormalities Neurologic: Awake, alert, oriented and No motor deficits Psychiatric: alert and oriented to person, place and time, Appropriate mood/affect Skin: No gross or obvious abnormalities on visible skin FUNCTIONAL CAPACITY: Uses a wheel chair LABS, TESTS, CONSULTS ORDERED: Orders & Meds Signed During This Encounter Complete Blood Count Basic Metabolic Panel EKG 12 LEAD - PERFORM LABORATORY DATA: CBC None Basic Metabolic Panel None TESTS REVIEWED: I personally reviewed and interpreting and findings were: CXRay: No Chest x-ray found EK15-MAR-2023 12:02:18 Sinus rhythm with ventricular premature complex(es) ECHO: Last Echocardiogram: none found going back to 09/19/2011 Stress test date: Last StressTest: none found going back to 09/19/2011 Patient is medically optimized for surgery. This note will be forwarded to the referring provider. Patient should follow up with referring provider. Attestation: I have spent 30 total minutes. Visit activities: - preparing to see the patient (e.g., review of tests) - obtaining and/or reviewing separately obtained history - performing a medically appropriate examination and/or evaluation - counseling and educating the patiecounseling and educating the patient/family/caregivernt/family/caregiver - counseling and educating the patient/family/caregiver - ordering medications, tests, or procedures - referring and communicating with other health childcare director (when not separately reported) - documenting clinical information in the electronic or other health record - independently interpreting results (not separately reported) and communicating results to the patient/family/caregiver Patient Instruction On the morning of your surgery please take only the following medications, with a small sip of water: Zofran, flupheazine, Quetiapine, Lovastatin, tamsulosin, Lamotrigine, Lorazepam, omeprazole Please do not eat or drink anything after midnight of the night prior to your procedure. You can have small sips of water the morning of to help take any AM medications. Do not take your colace the morning of your procedure. Please avoid taking medications, supplements or multivitamins not listed above the day of your surgery. Please avoid taking NSAIDs (Ibuprofen, Motrin, Aleve, etc.) for at least the 5 days prior to your procedure; these medications can increase your risk of bleeding during the procedure. Please avoid taking aspirin for 7 days prior to your procedure. This medication increases your riskof bleeding during the procedure. Interviewer signature: Mojgan Germain DO 11:55 AM 03/15/2023 * PSE Appt H&P - Aziza Rossana - 03/15/2023 11:36 AM EDT Patient was identified by name and date of . Rossana Ervin Patient at risk for falls:yes Falls Risk protocol implemented: Yes wheelchair in locked position when not in use for transport documented in this [id number] Miscellaneous Notes* PSE Appt H&P - Mojgan Germain DO - 03/15/2023 11:40 AM EDT Presurgical Evaluation (Pre-Admission Testing) Consultation Naldo Mack, [id number] 67 year old Male 03/15/2023 Consult placed to PSE by Dr. Rodriguez due to significant PMH of Patient needs a PSE TELEPHONE ASSESSMENT Total Score: 1 1 Patient has history of hyperlipidemia. Naldo Mack is scheduled for (Bilateral) DENTAL RESTORATIONS on 03/25/2023. Preop diagnosis of: Pre-Op Diagnosis Codes: * Caries [K02.9] HISTORY OF PRESENT ILLNESS: Naldo Mack is a 67 year old year old male with a PMHx significant forHLD, GERD, developmental delay who presents to [facility] clinic for preoperative evaluation prior to dental synagogue on 03/25/[address] Rodriguez. Patient denies any recent illnesses, sick contacts, SOB, CP, palpitations or syncopal events. Patient is here for presurgical optimization and education prior to surgery. RECENT ILLNESS: Serious illness or hospitalization within the last six months. No STOP BANG: STOP-BANG Row Name 03/15/23 1142 History of sleep apnea? No Snoring No Tired/Fatigued No Observed Apnea No Pressure: Hypertension No BMI greater than 35 0 Age greater than 50 1 Neck circ greater than 40cm (15.75 ) No Gender male? 1 Score 2 ALLERGIES: No Known Allergies Patient Active Problem List: Anxiety [F41.9] Behavior disturbance [F91.9] Chronic constipation [K59.09] Chronic GERD [K21.9] Dysphagia [R13.10] Mixed hyperlipidemia [E78.2] Neurogenic bladder [N31.9] Schizophrenia (HCC) [F20.9] Severe developmental delay [R62.50] Tardive dyskinesia [G24.01] Urinary incontinence [R32] Incomplete bladder emptying [R33.9] Depressive disorder [F32.A] Chronic musculoskeletal pain [M79.18, G89.29] Caries [K02.9] SOCIAL HISTORY: has no history on file for drug use. MEDICAL HISTORY: No past medical history on file. SURGICAL HISTORY: No past surgical history on file. ANESTHESIA REVIEW OF SYSTEMS: Eyes/ENT: Eye Glasses Teeth: Broken Teeth and Missing Teeth Pulmonary: Negative Cardio-vascular: Negative G.I./ Hepatic: GERD Renal/: Negative Neurological: Negative Gynecological: N/A Psychiatric: developmental disability Musculoskeletal: Negative Endocrine: Negative Hematologic: Negative Constitutional: Negative Skin: negative PREVIOUS ANESTHETIC COMPLICATIONS: Anesthesia Complications No anesthesia history noted None FAMILY HISTORY OF ANESTHETIC COMPLICATIONS: No CURRENT MEDICATION LIST: No current outpatient medications on file. No current facility-administered medications for this visit. HEIGHT: Data Unavailable WEIGHT: No prior weight on file BMI: Data Unavailable VITAL SIGNS: Vitals: 03/15/23 1136 BP: 110/80 Pulse: 85 Temp: 98.5 F (36.9 C) SpO2: 97% PAIN ASSESSMENT: Severity: 0 Location: N/A AIRWAY EXAM: Mallampati score: 3 TMD: Adequate Neck Extension/ Flexion: Limited Mouth Opening: Not Adequate Dentition: Teeth chipped and Missing teeth Micrognathia/Overbite: No PHYSICAL EXAM: Eyes: Normal and PERRL ENT: Nares normal and Mucosa normal Pulmonary: Chest clear to auscultation bilaterally Cardiovascular: RRR with S1S2 and No murmurs, gallops, or rubs Abdomen: Soft and non-tender and Bowel sounds normal Extremities: No gross or obvious abnormalities Neurologic: Awake, alert, oriented and No motor deficits Psychiatric: alert and oriented to person, place and time, Appropriate mood/affect Skin: No gross or obvious abnormalities on visible skin FUNCTIONAL CAPACITY: Uses a wheel chair LABS, TESTS, CONSULTS ORDERED: Orders & Meds Signed During This Encounter Complete Blood Count Basic Metabolic Panel EKG 12 LEAD - PERFORM LABORATORY DATA: CBC None Basic Metabolic Panel None TESTS REVIEWED: I personally reviewed and interpreting and findings were: CXRay: No Chest x-ray found EK15-MAR-2023 12:02:18 Sinus rhythm with ventricular premature complex(es) ECHO: Last Echocardiogram: none found going back to 09/19/2011 Stress test date: Last StressTest: none found going back to 09/19/2011 Patient is medically optimized for surgery. This note will be forwarded to the referring provider. Patient should follow up with referring provider. Attestation: I have spent 30 total minutes. Visit activities: - preparing to see the patient (e.g., review of tests) - obtaining and/or reviewing separately obtained history - performing a medically appropriate examination and/or evaluation - counseling and educating the patiecounseling and educating the patient/family/caregivernt/family/caregiver - counseling and educating the patient/family/caregiver - ordering medications, tests, or procedures - referring and communicating with other health childcare director (when not separately reported) - documenting clinical information in the electronic or other health record - independently interpreting results (not separately reported) and communicating results to the patient/family/caregiver Patient Instruction On the morning of your surgery please take only the following medications, with a small sip of water: Zofran, flupheazine, Quetiapine, Lovastatin, tamsulosin, Lamotrigine, Lorazepam, omeprazole Please do not eat or drink anything after midnight of the night prior to your procedure. You can have small sips of water the morning of to help take any AM medications. Do not take your colace the morning of your procedure. Please avoid taking medications, supplements or multivitamins not listed above the day of your surgery. Please avoid taking NSAIDs (Ibuprofen, Motrin, Aleve, etc.) for at least the 5 days prior to your procedure; these medications can increase your risk of bleeding during the procedure. Please avoid taking aspirin for 7 days prior to your procedure. This medication increases your riskof bleeding during the procedure. Interviewer signature: Mojgan Germain DO 11:55 AM 03/15/2023 * PSE Appt H&P - Rossana Ervin - 03/15/2023 11:36 AM EDT Patient was identified by name and date of . Rossana Ervin Patient at risk for falls:yes Falls Risk protocol implemented: Yes wheelchair in locked position when not in use for transport documented in this [id number] Evaluation note* PSE Appt H&P - Rossana Ervin - 03/15/2023 11:36 AM EDT Patient was identified by name and date of . Rossana Ervin Patient at risk for falls:yes Falls Risk protocol implemented: Yes wheelchair in locked position when not in use for transport [id number] Telephone encounter Note* Telephone Encounter - Nuvia Lloyd - 03/05/2023 2:15 PM EDT Situation: PSE Appt Background: Pt's Nurse Grace calling in hopes to r/s Pt's PSE appt. Pt previously scheduled for 03/01 but missed appt. Pt has OR appt for 03/25 and nurse would like Pt to have is PSE appt prior so Pt does not miss OR appt. Grace would like office to contact at earliest convenience to discuss. Pt last seen 01/07/23 w Lencho Soto Thank you Assessment: Please advise Recommendation: Nurse Grace can be reached by cell at [phone] Pt can be reached at Phone numbers Msg sent to OR 03/05/23 [id number] Miscellaneous Notes* Telephone Encounter - Nuvia Lloyd - 03/05/2023 2:15 PM EDT Situation: PSE Appt Background: Pt's Nurse Grace calling in hopes to r/s Pt's PSE appt. Pt previously scheduled for 03/01 but missed appt. Pt has OR appt for 03/25 and nurse would like Pt to have is PSE appt prior so Pt does not miss OR appt. Grace would like office to contact at earliest convenience to discuss. Pt last seen 01/07/23 w Lencho Soto Thank you Assessment: Please advise Recommendation: Nurse Grace can be reached by cell at [phone] Pt can be reached at Phone numbers Msg sent to OR 03/05/23 documented in this [id number] History of Present illness Narrative* Tj Soto DDS - 01/07/2023 10:49 AM EDT ----- Saturday, January 07, 2023 at 12:14:29 PM ----- ----- Provider: [id number] Maryann -- Clinic: [place] ----- OR EVALUATION Patient presents for evaluation to determine best course of treatment due to history of . severe developmental delay, tardive dyskinesia, schizophrenia, benign prostatic hyperplasia, chronic GERD. Patient is partially verbal. Patient is accompanied by caregiver for today's appointment. Patient partially cooperated for a partial intraoral exam. Clinical findings: Decay on #9, #14 ,retained root #12 It is best suited that this patient have full comprehensive examination, radiographs and treatment completed in the OR setting. Explained that the patient will be added to our OR waiting list, and the legal guardian will be contacted once a time slot becomes available. Legal Guardian: Giselle Schreiber; [phone] (Home), (mobile) Carlee Weiss; [phone] (home), (mobile) Next Visit: OR ----- Signed on Saturday, January 07, 2023 at 12:29:12 PM ----- ----- Provider: [id number] Ware DMD -- Clinic: [place] ----- [facility]* Diagnosis Caries- Primary Unspecified dental caries [facility]* Diagnosis Caries- Primary Unspecified dental caries documented in this [facility] Caries- Primary Unspecified dental caries Caries- Primary Unspecified dental caries [facility] Diagnosis Caries- Primary Unspecified dental caries Pre-op examination- Primary Preoperative examination, unspecified Caries Unspecified dental caries [facility] Diagnosis Caries- Primary Unspecified dental caries Pre-op examination- Primary Preoperative examination, unspecified Ventricular premature depolarization Other premature beats Caries Unspecified dental caries [facility] Diagnosis Caries- Primary Unspecified dental caries [facility]* Diagnosis Primary hypertension Unspecified essential hypertension Frequent PVCs Other premature beats [facility] Diagnosis Abnormal EKG Nonspecific abnormal electrocardiogram (ECG) (EKG) Abnormal electrocardiography documented in this encounter [facility] anesthesia Narrative* Procedure Name Responsible AnesthesiologistAnesthesia Start TimeAnesthesia Stop TimeDENTAL RESTORATIONS (Bilateral) Events No events on file. * Meds No medications on file. * Agents No agents on file. * Blood No blood administrations on file. Lines, Drains, and Airways No LDAs on file. [facility]* Procedure NameResponsible AnesthesiologistAnesthesia Start TimeAnesthesia Stop TimeDENTAL RESTORATIONS (Bilateral) Events No events on file. * Meds No medications on file. * Agents No agents on file. * Blood No blood administrations on file. Lines, Drains, and Airways No LDAs on file. [facility]* Cardiology (Routine) - Not Required - RTA SpecialtyDiagnoses / ProceduresReferred By ContactReferred To Contact Cardiology Diagnoses Abnormal EKG Abnormal electrocardiography Procedures Extended cardiac holter monitor (3 days - 15 days) [place] EXTERNAL ECG REC>48HR<7D REVIEW & INTERPRETATION [place] EXTERNAL ECG REC>48HR<7D RECORDING [place] EXTERNAL ECG REC>7D<15D RECORDING [place] EXTERNAL ECG REC>7D<15D REVIEW & INTERPRETATION Keerthi Guzman, SIGNALS OFFICER - BARIATRIC COORDINATOR [address] [place] [address] Phone: tel: fax: Referral IDStatusReasonStart DateExpiration DateVisits RequestedVisits [id number] Required - RTA/ [facility] Summary Purpose Family History No Family History Records FoundNo Family History Records FoundNo Family History Records FoundNo Family History Records FoundNo Family History Records FoundNo Family History Records Found Advance Directives No Advanced Directives Records FoundDocuments on File TypeDate RecordedPatient RepresentativeExplanationAdvance Directives and Living WillPower of AttorneyTypeDate RecordedPatient RepresentativeExplanationAdvance Directives and Living WillPower of AttorneyTypeDate RecordedPatient RepresentativeExplanationACP-Advance DirectiveACP-Power of AttorneyTypeDate RecordedPatient RepresentativeExplanationACP-Advance DirectiveACP-Power of [employer] Maker Discharge Instructions * Instructions* Keesha Moore RN - 01/01/2020 COLONOSCOPY DISCHARGE INSTRUCTIONS: It's normal to have a feeling of fullness or mild cramping in your abdomen afterwards due to air that is put into your bowel during the procedure. Mild activities such as walking will help you pass the air. You may resume your regular diet. You will receive a letter or phone call with your test results in 2 weeks. If you have not receiveda letter or a phone call in 2 weeks please call the office for your results. CALL THE DOCTOR IF YOU HAVE: Chest pain or trouble breathing. Bleeding from your rectum, vomiting or spitting up of blood that is more than a few streaks or red or black stools A fever above 101F or if you have chills Pain that is worse or different than any pain you had before the procedure Nausea or vomiting that lasts for more than 2 hours. If symptoms are to severe call 911 or go to the nearest Emergency Room. we will call caregiver with plans, may need a FIT test or a barium enema for future. documented in this encounter History of Present Illness * Keesha Moore RN - 01/01/2020 5:47 PM EDT Discharge Criteria Inpatients must meet Criteria 1 through 7. All other patients are either YES or N/A. If a NO is chosen then Anesthesia or Surgeon must be notified. 1. Minimum 30 minutes after last dose of sedative medication, minimum 120 minutes after last dose of reversal agent. Yes 2. Systolic BP stable within 20 mmHg for 30 minutes & systolic BP between 90 & 180 or within 10 mmHg of baseline. Yes 3. Pulse between 60 and 100 or within 10 bpm of baseline. Yes 4. Spontaneous respiratory rate >/= 10 per minute. Yes 5. SaO2 >/= 95 or >/= baseline. Yes 6. Able to cough and swallow or return to baseline function. Yes 7. Alert and oriented or return to baseline mental status. Yes 8. Demonstrates controlled, coordinated movements, ambulates with steady gait, or return to baseline activity function. Yes 9. Minimal or no pain or nausea, or at a level tolerable and acceptable to patient. Yes 10. Takes and retains oral fluids as allowed. Yes 11. Procedural / perioperative site stable. Minimal or no bleeding. Yes 12. If GI endoscopy procedure, minimal or no abdominal distention or passing flatus. Yes 13. Written discharge instructions and emergency telephone number provided. Yes 14. Accompanied by a responsible adult. Yes * Keesha Moore RN - 01/01/2020 5:35 PM EDT Discharge instructions given to patient and patient caregiver; verbalizes understanding and offers no questions at this time. Printed discharge instructions given to caregiver. * Kelsey Crane RN - 01/01/2020 5:09 PM EDT Handoff to Keesha Moore RN * An Carlisle RN - 01/01/2020 2:45 PM EDT Mom, Natividad KOKI calls an gives anesthesia consent. Xochitl LYNN updates Dr. Austin and Seymour CALIXTO. Patient and director of critical care updated, IV started and patient ready for procedure. * Crista Loja RN - 01/01/2020 2:32 PM EDT This RN explained that we have still unfortunately not been able to get a hold of pt's DPOA and Dr Parker has decided to cancel pt's procedure for today. Pt's IV was removed and pt instructed to get dressed. 2 gift cards out of the toolbox given in apology. This RN apologized for the miscommunication on our end that resulted in the proper paperwork not being completed in advance. * Xochitl Olmedo RN - 01/01/2020 1:17 PM EDT Attempted phone calls to KOKI Barnes to obtain Anesthesia consent at [phone], [phone], [phone], [phone] * Rita Christensen RN - 12/16/2019 1:59 PM EDT Anesthesia notified to review the patient's chart pre-operatively. 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 Reason for Referral StatusReasonSpecialtyDiagnoses / ProceduresReferred By ContactReferred To ContactClosedRadiology Diagnoses Family history of colon cancer in father Redundant colon Procedures FL BARIUM ENEMA W AIR CONTRAST Charleen Parker I, DO [address] [place] [address] [facility] [address] [place] [address] SpecialtyDiagnoses / ProceduresReferred By ContactReferred To ContactDentistry Diagnoses Caries Drew Rodriguez, DDS [address] [place] [address] Dentistry [address] [place] [address] Referral IDStatusReasonStart DateExpiration DateVisits RequestedVisits [id number]/28/20233/ Scheduling Instructions Please call the Dental Clinic at [facility] at to schedule an appointment if one was not made for you today. SpecialtyDiagnoses / ProceduresReferred By ContactReferred To Contact Diagnoses Primary hypertension Frequent PVCs Procedures Extended cardiac holter monitor (48 hrs - 15 days) NJ EXTERNAL ECG REC>48HR<7D REVIEW & INTERPRETATION NJ EXTERNAL ECG REC>48HR<7D RECORDING [place] EXTERNAL ECG REC>7D<15D RECORDING [place] EXTERNAL ECG REC>7D<15D REVIEW & INTERPRETATION Eduard Parry MD [address] [place] [address] [place] [address] Referral IDStatusReasonStart DateExpiration DateVisits RequestedVisits [id number] Review/ Additional Source Comments (unrecognized sect ion and content) No Status Records FoundNo Status Records FoundNo Status Records FoundNo Status Records FoundNo Status Records FoundNo Status Records Found INFORMATION SOURCE (unrecogn ized section and content) DATE CREATED AUTHOR 11/27/2017 [facility] DATE CREATED AUTHOR AUTHOR'S ORGANIZ ATION 03/14/2020 [facility] DATE CREATED AUTHOR AUTHOR'S ORGANIZ ATION 10/15/2024 [facility] DATE CREATED AUTHOR AUTHOR'S ORGANIZ ATION 02/21/2025 [facility] DATE CREATED AUTHOR AUTHOR'S ORGANIZ ATION 04/04/2025 [facility] DATE CREATED AUTHOR AUTHOR'S ORGANIZ ATION 04/07/2025 [facility] Reason for Visit (unrecogniz ed section and content) StatusReasonSpecialtyDiagnoses / ProceduresReferred By ContactReferred To Contact Diagnoses Colon cancer screening Family history of colon cancer SCREENING, FAMILY HX OF COLON CANCER Procedures NJ COLORECTAL SCRN; HI RISK IND [place] COLONOSCOPY FLX DX W/COLLJ SPEC WHEN PFRMD COLORECTAL CANCER SCREENING, HIGH RISK Charleen Parker I, DO [address] [place] [address] [address] [place] [address] [facility] StatusReasonSpecialtyDiagnoses / ProceduresReferred By ContactReferred To ContactClosedRadiology Diagnoses Family history of colon cancer in father Redundant colon Procedures FL BARIUM ENEMA W AIR CONTRAST Charleen Parker I DO [address] [place] [address] [address] [place] [address] [facility] [address] [place] [address] ReasonOnset DateCommentsAPPOINTMENT UVFVBCMRUS96/03/2023ReasonOnset DateComments Pre-surgical Vurkydazkk37/16/2023Informed Consent & Anesthesia consent obtained ReasonOnset DateCommentsPre-surgical Drgcoepqvr59/18/2023D adult dental restorations 03/25 under [facility] at [facility]. PSE completed - consents obtained. PSE RN spoke to [place], confirmed NPO, [place] address, and 0900 arrival time.Specialty Diagnoses / ProceduresReferred By ContactReferred To ContactAmbulatory Surgery Diagnoses Caries Caries [K02.9] Procedures UNLISTED PROCEDURE, DENTOALVEOLAR STRUCTURES ANESTHESIA, INTRAORAL PROC, W/BX; NOS DENTAL RESTORATIONS Drew Rodriguez, DDS [address] [place] [address] [employer] [address] [place] [address] Phone: [phone] Referral IDStatusReasonStart DateExpiration DateVisits RequestedVisits [id number] QqsdUadqbzmrTibghk29/23/2023SpecialtyDiagnoses / ProceduresReferred By ContactReferred To Contact Diagnoses Primary hypertension Frequent PVCs Procedures Extended cardiac holter monitor (48 hrs - 15 days) NJ EXTERNAL ECG REC>48HR<7D REVIEW & INTERPRETATION NJ EXTERNAL ECG REC>48HR<7D RECORDING [place] EXTERNAL ECG REC>7D<15D RECORDING [place] EXTERNAL ECG REC>7D<15D REVIEW & INTERPRETATION Eduard Parry MD [address] [place] [address] Referral IDStatusReasonStart DateExpiration DateVisits RequestedVisits [id number] Review/ Care Teams (unrecognized sec tion and content) Team MemberRelationshipSpecialtyStart DateEnd Date Darío Castro, SIGNALS OFFICER - BARIATRIC COORDINATOR [address] [place] [address] PCP - GeneralInternal Medicine08/10/20Team MemberRelationshipSpecialtyStart Date End Date Darío Castro APRN - BARIATRIC COORDINATOR [address] [place] [id number] PCP - GeneralInternal Medicine08/10/20am MemberRelationshipSpecialtyStart Date End Date Darío Castro SIGNALS OFFICER - BARIATRIC COORDINATOR [address] [place] [id number] PCP - GeneralInternal Medicine08/10/20am MemberRelationshipSpecialtyStart Date End Date Darío Castro APRN - BARIATRIC COORDINATOR [address] [place] [id number] PCP - GeneralInternal Medicine08/10/20Team MemberRelationshipSpecialtyStart Date End Date Darío Castro SIGNALS OFFICER - BARIATRIC COORDINATOR [address] [place] [id number] PCP - GeneralInternal Medicine08/10/20am MemberRelationshipSpecialtyStart Date End Date Darío Castro APRN - BARIATRIC COORDINATOR [address] [place] [id number] PCP - GeneralInternal Medicine08/10/20Team MemberRelationshipSpecialtyStart Date End Date Darío Castro SIGNALS OFFICER - BARIATRIC COORDINATOR [address] [place] [id number] PCP - GeneralInternal Medicine08/10/20Team MemberRelationshipSpecialtyStart Date End Date Darío Castro SIGNALS OFFICER - BARIATRIC COORDINATOR [address] [place] [address] PCP - GeneralInternal Medicine08/10/20Te MemberRelationshipSpecialtyStart Date End Date Darío Castro APRN - BARIATRIC COORDINATOR [address] [place] [address] PCP - GeneralInternal Medicine08/10/20Te MemberRelationshipSpecialtyStart Date End Date Darío Castro, SIGNALS OFFICER - BARIATRIC COORDINATOR [address] [place] [address] PCP - GeneralInternal Medicine08/10/20 PRN Active and Recently Administ ered Medications (unrecognized section and content) Medication Order/// bacitracin 500 UNIT/GM ointment (CANCELED) PRN, Starting on Sat03/25/23 at 1031, Until Sat03/25/23 at 1206, Intra-op * 1031 (Given - Provider: Gisselle [facility] DDS - Comment: Applied to lips at beginning and end of procedure) lidocaine-epinephrine (XYLOCAINE) 2 %-1:134504 injection (CANCELED) PRN, Starting on Sat03/25/23 at 1049, Until Sat03/25/23 at 1206, Intra-op * 1049 (Given - Provider: Gisselle [facility], AMANDA - Comment: Injected into mouth sites prior to extraction) FOR RECORDS PERTAINING TO PATIENTS WHO ARE OR HAVE BEEN ENROLLED IN A CHEMICAL DEPENDENCY/SUBSTANCEABUSE PROGRAM, SOME INFORMATION MAY BE OMITTED. This clinical summary was aggregated from multiple sources. Caution should be exercised in using it in the provision of clinical care. This summary normalizes information from multiple sources, and as a consequence, information in this document may materially change the coding, format and clinical context of patient data. In addition, data may be omitted in some cases. CLINICAL DECISIONS SHOULD BE BASED ON THE PRIMARY CLINICAL RECORDS. [facility] [employer] [facility]. provides no warranty or guarantee of the accuracy or completeness of information in this document.
[2025-05-31 08:07] LABS: Alanine Aminotransferase 30 U/L (16-63); Albumin Globulin Ratio 1.0; Albumin Level 3.4 g/dL (3.4-5.0); Alkaline Phosphatase 172 U/L (46-116); Anion Gap 10.0; Aspartate Amino Transferase 26 U/L (15-37); Blood Urea Nitrogen 32.0 mg/dL (7.0-18.0); Calcium 8.1 mg/dL (8.5-10.1); Carbon Dioxide 28.9 mmol/L (21.0-32.0); Chloride 102 mmol/L (98-107); Estimated GFR (African America >60 (>=60 mL/min/1.73m^2); Estimated GFR (Non-African Ame >60 (>=60 mL/min/1.73m^2); Globulin 3.3 g/dL; Glucose 115 mg/dL (74-106); Potassium 3.9 mmol/L (3.5-5.1); Sodium 137 mmol/L (136-145); Total Protein 6.7 g/dL (6.4-8.2)
[2025-05-31 08:36] LABS: Atypical Lymphocytes % Manual 1.0 %; Atypical Lymphocytes Abs Man 0.09; Basophils Abs Manual 0.00 10^3/uL (0.00-0.10); Basophils Percent Manual 0.0 % (0.2-2.0); Eosinophils Absolute Manual 0.00 10^3/uL (0.00-0.70); Eosinophils Percent Manual 0.0 % (0.9-7.0); Lymphocytes Absolute Manual 0.37 10^3/uL (1.20-3.80); Lymphocytes Percent Manual 4.0 % (20.5-60.0); Monocytes Absolute Manual 0.75 10^3/uL (0.30-0.80); Monocytes Percent Manual 8.0 % (1.7-12.0); Segmented Neut Absolute Manual 8.17 10^3/uL (1.4-6.5); Segmented Neutrophils % Manual 87.0 (43.0-75.0)
--- NOTE | 2025-05-31 08:53 | CT_ITS ---
The [address] [address] Patient Name: NALDO MACK MRN: [id number] date: 1955 Sex: M Assigned Patient Location: ER Current Patient Location: ER Accession/Order Number: [id number] Exam Date: 05/31/2025 08:35 Report Date: 05/31/2025 09:41 At the request of: JAYSHREE RINCON MD Procedure: CT angio abdomen pelvis CTA OF THE ABDOMEN PELVIS WITHOUT AND WITH INTRAVENOUS CONTRAST (GI bleed study) CLINICAL DATA: Coffee-ground emesis and dark tarry stools. Abdominal pain. COMPARISON: None Spiral images were obtained through the abdomen and pelvis before and after intravenous administration of 100 MLO of Omnipaque 350. Early and delayed imaging was performed. This CT exam was performed using one or more following dose reduction techniques: Automated exposure control, adjustment of the mA and/or kV according to patient size, or use of iterative reconstruction technique. Limited cuts through the lung bases show a mildly distended fluid containing distal esophagus. There is respiratory motion though there is also minor suspected scarring or atelectasis. The distal thoracic esophagus is ectatic and a tiny hiatal hernia is seen. Evaluation is slightly limited by respiratory motion and artifact from patient's arms. No intrahepatic abnormalities are seen. The gallbladder is contracted. The spleen, pancreas and adrenal glands show no acute findings. No renal calculi are visualized precontrast. Following contrast administration, the renal nephrograms are symmetric. No hydronephrosis is identified. There is a right renal cyst. The abdominal aorta is normal in caliber. There is no aneurysm or dissection. There is normal opacification of the visceral arteries. There is no extravascular contrast pooling to suggest an active GI bleed. No enlarged lymph nodes or ascites are seen. The stomach is distended with fluid, air and a small amount of food debris. There is also fluid within nondistended small bowel loops. Air and mild stool are seen mildly distended the colon. No appendiceal inflammation is present. There is subtle thoracic scoliotic curvature. There is slight wedge deformity involving lower thoracic and upper lumbar vertebral bodies as well as multilevel degenerative changes . Images through the pelvis show a small umbilical hernia containing fat. There are nondistended small bowel loops containing fluid. There is mild air and stool at the distal colon. There is borderline thickening of the wall of the rectosigmoid colon though this could relate to incomplete distention. There is no surrounding pericolonic inflammation. No diverticular disease is noted. The prostate is not enlarged however it does contain calcification. There is slight thickening of the urinary bladder wall. There are no intraluminal abnormalities. No ascites is seen. There are chronic bony changes involving the pelvis and proximal femora where there is suspected hip dysplasia. CT/CT angio abdomen pelvis IMPRESSION: NO BOWEL OR URINARY TRACT OBSTRUCTION. GASTRIC DISTENTION. BORDERLINE RECTOSIGMOID WALL THICKENING. THIS MAY RELATE TO INCOMPLETE DISTENTION. SLIGHT URINARY BLADDER WALL THICKENING. CORRELATION IS RECOMMENDED TO EXCLUDE CYSTITIS. NO EVIDENCE OF ACTIVE GI BLEED. CHRONIC APPEARING BONY CHANGES. Impression dictated by: India Villa M.D. 05/31/2025 9:41 AM Dictation Location[facility] Electron[facility] authentic[facility] by: [id number] Y Date: 05/31/2025 09:41
--- NOTE | 2025-05-31 08:53 | XR_ITS ---
The [place] [id number] Patient Name: NALDO MACK MRN: [id number] date: 1955 Sex: M Assigned Patient Location: ER Current Patient Location: ER Accession/Order Number: [id number] Exam Date: 05/31/2025 08:35 Report Date: 05/31/2025 09:22 At the request of: JAYSHREE RINCON MD Procedure: XR chest 1V PORTABLE AP ERECT CHEST 0809 hours CLINICAL HISTORY: GI bleed COMPARISON: None Evaluation is slightly limited by lordotic positioning and shallow inspiration. The heart is top normal in size. There is no vascular congestion. The lungs, as visualized, are clear. There is no effusion or pneumothorax. The osseous structures appear intact. End plate spurring is seen at the spine and degenerative change at the shoulders. There is air within bowel at the upper abdomen. XR/XR chest 1V IMPRESSION: NO ACUTE FINDINGS Impression dictated by: India Villa M.D. 05/31/2025 9:22 AM Dictation Location: [facility] Electronically authenticated by: [id number] Y Date: 05/31/2025 09:22
[2025-05-31 10:15] LABS: SARS-CoV-2 Ag NEGATIVE (NEGATIVE)
--- NOTE | 2025-05-31 10:40 | PC.NURSE ---
Spoke with Soniya LEHMAN of [facility]. Updated on patient's visit and informed that patient is being discharged. She requested that we set up transport as the facility does not have ability to corn picker the patient. Will begin arranging transport of patient back to facility.
== END 2025-05-31 13:16 | disposition home or self-care (01) ==
PROVIDERS: Emergency Provider Emergency Medicine; PCP Family Medicine
DX: Z03.89 Encounter for observation for other suspected diseases and conditions ruled out (principal); F79 Unspecified intellectual disabilities
CPT/HCPCS: 36415; 71045; 74174; 80048; 80076; 85007; 85027; 87804; 87811; 93005; 99284; G0328; Q9967

== ENCOUNTER 2025-06-01 01:43 | Emergency (ER) | payer MEDICARE, MEDICAID, SELFPAY ==
[2025-06-01 01:48] VITALS: BP 96/67; PULSE 98; TEMP 36.7; O2SAT 91; BMI 31.2
--- NOTE | 2025-06-01 01:59 | ED.NAVMDI1 ---
HPI - Nausea/Vomiting/Diarrhea General Chief complaint: Nausea/Vomiting/Diarrhea Stated complaint: Abdominal Pain Time Seen by Provider: 06/01/25 01:47 Source: patient and caregiver Mode of arrival: ambulance Limitations: other Limitations comment: MRDD History of Present Illness HPI Narrative: This 69-year-old male with a history of MRDD who is mostly nonverbal is return to the emergency department for reevaluation of vomiting. He was seen here earlier today with concerns for a GI bleed after he had several episodes of vomiting which was dark in color. He had blood work and a CT angiogram and occult stool performed. The CT angiogram did not show any acute bleeding and his stool is guaiac negative. Chest x-ray was also normal. We did not receive a call from the [facility] where this patient resides for an update on what had changed and she was discharged from here however the paramedics did state that the nighttime nurse came on and wanted him reevaluated. The patient is not a reliable historian answering yeah and or repeating the question that was asked to him. He is not having any active vomiting upon arrival and is alert and nontoxic in appearance. Related Data Home Medications ?Medication ?Instructions ?Recorded ?Confirmed finasteride 5 mg tablet 5 mg PO DAILY 09/22/24 06/01/25 fluphenazine HCl 5 mg tablet 5 mg PO DAILY 09/22/24 06/01/25 lamotrigine 25 mg tablet 25 mg PO Q12H 09/22/24 06/01/25 lorazepam 0.5 mg tablet 0.5 mg PO DAILY 09/22/24 06/01/25 losartan 50 mg tablet 50 mg PO DAILY 09/22/24 06/01/25 lovastatin 20 mg tablet 20 mg PO DAILY 09/22/24 06/01/25 metoprolol succinate 50 mg 50 mg PO DAILY 09/22/24 06/01/25 tablet,extended release 24 hr omeprazole 20 mg capsule,delayed 20 mg PO DAILY 09/22/24 06/01/25 release polyethylene glycol 3350 17 17 g PO DAILY 09/22/24 09/22/24 gram/dose oral powder (ClearLax) quetiapine 50 mg tablet 50 mg PO DAILY 09/22/24 06/01/25 tamsulosin 0.4 mg capsule 0.4 mg PO BID 09/22/24 06/01/25 amlodipine 5 mg tablet 5 mg PO DAILY 06/01/25 06/01/25 baclofen 10 mg tablet 10 mg PO DAILY 06/01/25 06/01/25 quetiapine 25 mg tablet 25 mg PO DAILY 06/01/25 06/01/25 Allergies Allergy/AdvReac Type Severity Reaction Status Date / Time No Known Drug Allergies Allergy Verified 05/31/25 07:17 Review of Systems ROS Status of ROS 10 or more systems reviewed and unremarkable except as noted in history and below [facility] Medical History (Updated 06/01/25 @ 06:23 by Laxmi Mcneil MD) BPH (benign prostatic hyperplasia) ?N40.0 - Benign prostatic hyperplasia without lower urinary tract symptoms (ICD-10) Spinal stenosis ?M48.00 - Spinal stenosis, site unspecified (ICD-10) Congenital hip dysplasia ?Q65.89 - Other specified congenital deformities of hip (ICD-10) Hydronephrosis ?N13.30 - Unspecified hydronephrosis (ICD-10) Neurogenic bladder ?N31.9 - Neuromuscular dysfunction of bladder, unspecified (ICD-10) Urinary retention ?R33.9 - Retention of urine, unspecified (ICD-10) Anxiety ?F41.9 - Anxiety disorder, unspecified (ICD-10) Lordosis of lumbar region ?M40.56 - Lordosis, unspecified, lumbar region (ICD-10) Hyperlipemia ?E78.5 - Hyperlipidemia, unspecified (ICD-10) FH: total knee replacement ?Z82.69 - Family history of other diseases of the musculoskeletal system and connective tissue (ICD-10) GERD (gastroesophageal reflux disease) ?K21.9 - Gastro-esophageal reflux disease without esophagitis (ICD-10) Tardive dyskinesia ?G24.01 - Drug induced subacute dyskinesia (ICD-10) DJD (degenerative joint disease) ?M19.90 - Unspecified osteoarthritis, unspecified site (ICD-10) Arthritis ?M19.90 - Unspecified osteoarthritis, unspecified site (ICD-10) Schizophrenic disorder ?F20.9 - Schizophrenia, unspecified (ICD-10) Dermatitis ?L30.9 - Dermatitis, unspecified (ICD-10) Kyphoscoliosis ?M41.9 - Scoliosis, unspecified (ICD-10) Developmental disorder ?F89 - Unspecified disorder of psychological development (ICD-10) Social History Little interest or pleasure in doing things: not at all Feeling down, depressed, or hopeless: not at all Exam Narrative Exam Narrative: Vital signs and Nursing Notes reviewed: Patient is afebrile, blood pressure soft at 96/67, he has mild elevation in his pulse at 98 and pulse ox is borderline at 91% on room air General: Awake, alert, pleasant, smiling, no respiratory distress, no active vomiting HEENT: Normocephalic atraumatic, mucous membranes are moist and pink, eyes are clear, normal conjunctiva, vision is grossly intact Neck: Supple, no meningeal signs, no anterior or posterior cervical lymphadenopathy Chest: Lungs are clear to auscultation with good air entry, there is no wheezing rhonchi or rales appreciated no accessory muscle use, patient is speaking in complete sentences-no chest wall tenderness to palpation CVS: Regular rate and rhythm S1-S2, no murmurs rubs or gallops, pulses are brisk and equal bilaterally ABD: Softly distended, normal bowel sounds, no appreciable tenderness to exam Extremities: No lower extremity deformity noted, 1-2+ pitting edema in bilateral lower legs Skin: Normal in appearance without rash,pallor, petechiae or purpura Neuro: No gross focal deficits Constitutional Vital Signs, click to edit/add: Last Vital Signs Temp 98.0 F 06/01/25 01:48 Pulse 98 H 06/01/25 01:48 Resp 18 06/01/25 01:48 BP 96/67 06/01/25 01:48 Pulse Ox 95 06/01/25 02:24 O2 Del Method Nasal Cannula 06/01/25 02:24 O2 Flow Rate 2 06/01/25 02:24 Course Vital Signs Vital signs: Vital Signs Temperature 98.0 F 06/01/25 01:48 Pulse Rate 98 H 06/01/25 01:48 Respiratory Rate 18 06/01/25 01:48 Blood Pressure 96/67 06/01/25 01:48 Pulse Oximetry 91 L 06/01/25 01:48 Oxygen Delivery Method Room Air 06/01/25 01:48 Temperature 98.0 F 06/01/25 01:48 Pulse Rate 98 H 06/01/25 01:48 Respiratory Rate 18 06/01/25 01:48 Blood Pressure 96/67 06/01/25 01:48 Pulse Oximetry 95 06/01/25 02:24 Oxygen Delivery Method Nasal Cannula 06/01/25 02:24 Oxygen Delivery Flow Rate 2 06/01/25 02:24 MDM - Nausea/Vomiting/Diarrhea MDM Narrative Medical decision making narrative: 69-year-old [facility] evaluation of nausea and vomiting. He was seen here yesterday with concerns for a GI bleed. He was found to have normal stool without blood and CT angiogram of the abdomen pelvis did not show any sign of acute bleeding. He is MRDD and somewhat conversant. He denies any complaint of pain. His mucous membranes are moist and pink. Vital signs are stable. He was mildly tachycardic upon arrival. His abdomen is softly distended. An IV was placed and he was given IV fluids, Zofran and Pepcid. Routine labs were repeated. His white count remained stable at 8 with a slight drop in his hemoglobin from 11.3-10.5 and dropped slightly on repeat testing to 9.8 after IV fluids. Electrolytes are also reviewed. He has normal electrolytes except his BUN earlier in the day was in the 30s and jumped to 60. Creatinine remains normal I suspect this may be related to IV contrast. It was repeated and has improved after IV fluids. In the emergency department he has not had any complaint of pain. He tolerated a popsicle without any difficulty. Has not had any diarrhea while in the emergency department or vomiting. I did not think that repeat radiographic testing was indicated. Calcium did drop to 7.4 and he was given IV calcium gluconate. His vital signs remained stable in the emergency department. We undressed him to perform a repeat rectal exam and he had a large amount of dark stool on his legs and pants. This was swabbed for a repeat guiac test and sent to the lab. Protonix was added to his IV medications. Guiac is positive at this time. Case was discussed with TAMMY Graham at [facility]- she will see this patient in consult. Case discussed with Dr Boyer, Hospitalist and he is accepted for transfer to [facility]. Lab Data Labs: Lab Results 06/01/25 06/01/25 06/01/25 Range/Units 01:50 03:53 05:00 WBC 9.4 8.0 (4.0-11.0) 10^3/uL RBC 3.58 L 3.30 L (4.70-6.10) 10^6/uL Hgb 10.5 L 9.8 L (14.0-18.0) g/dL Hct 31.6 L 29.3 L (42.0-54.0) % MCV 88.3 88.8 (80.0-94.0) fL MCH 29.3 29.7 (25.9-34.0) pg MCHC 33.2 33.4 (29.9-35.2) g/dL RDW 13.8 13.7 (11.0-15.0) % Plt Count 142 L 131 L (150-450) 10^3/uL MPV 12.1 11.5 (9.5-13.5) fL Neut % (Auto) 88.3 H 83.4 H (43.0-75.0) % Lymph % (Auto) 6.6 L 8.4 L (20.5-60.0) % [place] % (Auto) 4.6 6.8 (1.7-12.0) % Eos % (Auto) 0.0 L 0.0 L (0.9-7.0) % Baso % (Auto) 0.2 0.3 (0.2-2.0) % Neut # (Auto) 8.3 H 6.7 H (1.4-6.5) 10^3/uL Lymph # (Auto) 0.6 L 0.7 L (1.2-3.8) 10^3/uL [place] # (Auto) 0.4 0.5 (0.3-0.8) 10^3/uL Eos # (Auto) 0.0 0.0 (0.0-0.7) 10^3/uL Baso # (Auto) 0.0 0.0 (0.0-0.1) 10^3/uL Abs Immat Gran (auto) 0.03 0.09 H (0.00-0.03) 10^3/uL Imm/Tot Granulo (auto) 0.3 1.1 H (0.0-0.5) % Sodium 135 L 136 (136-145) mmol/L Potassium 4.9 3.8 (3.5-5.1) mmol/L Chloride 100 102 (98-107) mmol/L Carbon Dioxide 28.1 27.0 (21.0-32.0) mmol/L Anion Gap 11.8 10.8 BUN 60.0 H 57.0 H (7.0-18.0) mg/dL Creatinine 1.28 1.15 (0.70-1.30) mg/dL Est GFR ( Amer) >60 >60 (>=60 mL/min/1.73m^2) Est GFR (Non-Af Amer) 56 L >60 (>=60 mL/min/1.73m^2) BUN/Creatinine Ratio 46.9 49.6 Glucose 123 H 122 H (74-106) mg/dL Lactate 0.9 (0.4-2.0) mmol/L Calcium 8.2 L 7.4 L (8.5-10.1) mg/dL Total Bilirubin 0.5 0.3 (0.2-1.0) mg/dL AST 37 21 (15-37) U/L ALT 29 25 (16-63) U/L Alkaline Phosphatase 149 H 131 H (46-116) U/L Total Protein 6.6 5.9 L (6.4-8.2) g/dL Albumin 3.4 3.1 L (3.4-5.0) g/dL Globulin 3.2 2.8 g/dL Albumin/Globulin Ratio 1.1 1.1 Lipase 52.0 40.0 (16.0-77.0) U/L Stool Occult Blood Positive A Discharge Plan Discharge Chief Complaint: Nausea/Vomiting/Diarrhea Clinical Impression: GI (gastrointestinal bleed) Patient Disposition: [facility] Time of Disposition Decision: 06:23 Discharge Location: [facility] Condition: Fair Mode of Transportation: EMS
[2025-06-01 02:02] LABS: Hematocrit 31.6 % (42.0-54.0); Hemoglobin 10.5 g/dL (14.0-18.0); Immature Granulocytes Abs Auto 0.03 10^3/uL (0.00-0.03); Immature Granulocytes Pct Auto 0.3 % (0.0-0.5); Lymphocytes Absolute Auto 0.6 10^3/uL (1.2-3.8); Mean Corpuscular HGB Conc 33.2 g/dL (29.9-35.2); Mean Corpuscular Hemoglobin 29.3 pg (25.9-34.0); Mean Corpuscular Volume 88.3 fL (80.0-94.0); Platelet Count 142 10^3/uL (150-450); Red Blood Count 3.58 10^6/uL (4.70-6.10); White Blood Count 9.4 10^3/uL (4.0-11.0)
[2025-06-01] MEDS: FAMOTIDINE/PF 20 MG/2 ML VIAL IV (02:17)
[2025-06-01] MEDS: 0.9 % SODIUM CHLORIDE 500 ML IV (02:17)
[2025-06-01] MEDS: 0.9 % SODIUM CHLORIDE 1,000 ML 125 ML IV (02:17)
[2025-06-01 02:19] LABS: Alanine Aminotransferase 29 U/L (16-63); Albumin Globulin Ratio 1.1; Albumin Level 3.4 g/dL (3.4-5.0); Alkaline Phosphatase 149 U/L (46-116); Anion Gap 11.8; Aspartate Amino Transferase 37 U/L (15-37); Blood Urea Nitrogen 60.0 mg/dL (7.0-18.0); Calcium 8.2 mg/dL (8.5-10.1); Carbon Dioxide 28.1 mmol/L (21.0-32.0); Chloride 100 mmol/L (98-107); Estimated GFR (African America >60 (>=60 mL/min/1.73m^2); Estimated GFR (Non-African Ame 56 (>=60 mL/min/1.73m^2); Globulin 3.2 g/dL; Glucose 123 mg/dL (74-106); Lipase 52.0 U/L (16.0-77.0); Potassium 4.9 mmol/L (3.5-5.1); Sodium 135 mmol/L (136-145); Total Protein 6.6 g/dL (6.4-8.2)
[2025-06-01 02:21] LABS: Lactate/Lactic Acid 0.9 mmol/L (0.4-2.0)
[2025-06-01 02:24] VITALS: O2SAT 95
--- NOTE | 2025-06-01 02:25 | PC.NURSE ---
Patient was seen in this ED on 05/31, sent form custodial with c/o possible GI bleed. Staff reported at that time that patient had been having black tarry stools and coffee ground emesis. A full workup was done in this ED and was negative for GI bleed. This morning, patient is brought back to the ED, EMS reports that patient had continued to have vomiting throughout the day and the nurse that came on this evening at the custodial wanted him reevaluated. There was no report called to the ED form the custodial and no paperwork was sent with the patient
--- OUTSIDE RECORDS SUMMARY | 2025-06-01 03:05 | XMS_ITS | Clinical Summary ---
Author Organization [facility] Address [address] [facility] [place] [address] Care Team Providers Care Easter Bunny Name Role Phone Unavailable Primary Care Provider Unavailabl e Source Comments The following information is NOT included in Care Everywhere downloads:Psychiatric notes, ECG results, Cardiac Rehab notes, Pulmonary Function notes, data from SmartForms (includes but not limited toPregnancy data,audiograms, eye exams, pre-surgical evaluation notes, well-child exam data).[facility] Allergies No known active allergies Active Problems ProblemNoted DateDiagnosed DateInflammatory sidwchjcfl14/08/2025ongenital dysplasia of hip10/08/2024Family history of total knee dicnwqqxmis53/08/2025 Eumkqphsqmruzj05/08/1702Sxmuhqlhawrtut52/08/2025Lordosis of lumbar region 10/08/2024Retention of urine10/08/2024Fall09/22/2024losed displaced comminuted fracture of shaft of right quwnafm2704/02/20231725Wofdps79/3Chronic constipation /hronic musculoskeletal pain/nxiety Neurogenic tbzyvrz03/evelopmental ppikbzfygf71/30/202109/Full code borlzj1508/25/2020ehavior disturbance astroesophageal reflux ebddqvw89ysphagia HyperlipidemiaSchizophrenic disorder Tardive nhvmisitsx70epressive disorder Incomplete bladder xktdbrrr73Spinal vbnqaxsf94/26/2016Benign prostatic edgwhmainvn00/30/2015Urinary incontinence Overview (10/08/2024): Patient first seen 03/27/05 [...] bladder neck. Patient was seen in our jvouoy58/4/11 and bladder scan showed residual urine 275 [...] bladder neck. Patient was seen in our mgkgym28/4/11 and bladder scan showed residual urine 275 [...] bladder neck. Patient was seen in our /4/11 and bladder scan showed residual urine 275 ml. Patient was started on Proscar and was to have follow up in six months. Patient has schizophrenia and mental retardation. Patient is not able to communicate. Immunizations ImmunizationAdministration DatesNext DuePfizer Monovalent (12+ yrs) SARS-COV-2 (COVID-19) vaccine, mRNA, spike protein, LNP, pres. free, 30mcg/0.3mL dose (LPP=322)05/24/2021,06/28/2020,06/07/2020 Social History Tobacco UseTypesPacks/DayYears UsedDateSmoking Tobacco: Never AssessedSex and Gender InformationValueDate RecordedSex Assigned at BirthNot on fileLegal Sex Male07/12/2020 10:46 AM ESTGender IdentityNot on fileSexual OrientationNot on file Last Filed Vital Signs Vital SignReadingTime TakenCommentsBlood Ejrbqqub862/8603/25/2023 12:45 PM EDT Rjesl815903/25/2023 12:45 PM ZOZEwwkajqfyor69.6 ??C (97.9 ??F)03/25/2023 12:45 PM EDTRespiratory Bkwc0379 12:45 PM EDTOxygen Gtckzqdhei52%03/25/2023 12:45 PM EDTInhaled Oxygen Concentration--Qffgkr05 kg (172 lb)03/25/2023 9:10 AM EDT Height--Body Mass Index-- Plan of Treatment Health MaintenanceDue DateLast HfinCyermbzwLxntnxkplbu32/13/1956Hepatitis C Iuwoukmz42/13/1974Tdap Fjgqtfk0507/16/1973Hepatitis A (HAV) Vaccine (optional start 19+ years)1974Annual Wellness Visit (G0438)06/03/1992[facility] Screening 2000Cologuard (Stool DNA)2000FIT2000Pneumococcal Vaccine(s) (50+ yrs) (1 of 1 - PCV)2005Shingles (RZV) Vaccine (1 of 2)2005 Hepatitis B (HBV) Vaccine (optional start 60+ years)2015Dental Oral Exam ental Pcnvlksbohz07ental X-Ray: Lsrtwjdnp53/, 01/07/2023, 01/07/2023OVID-19 Vaccine ( season)/, 06/28/2020, 06/07/2020Influenza Vaccine (#1) 02/01/20253011Yavxouqolzx32/27/, 05/29/2024, 11/20/2023, Additional history existsRSV vaccine (adult) (1 - 1-dose 75+ series)2030 Procedures Procedure NamePriorityDate/TimeAssociated DiagnosisCommentsPROPHY ADULT 14 & FWPPTQckphjy55/23/2023 12:00 AM EDTCOMPREHENSIVE JEVXRfzwrjd43/23/2023 12:00 AM EDTfrom Last 3 Months or Most Recently Relevant to Health Maintenance Insurance [address] [place] [address]
--- OUTSIDE RECORDS SUMMARY | 2025-06-01 03:05 | XMS_ITS | CCD ---
Author Organization [facility] Care Team Providers Care Health Record Technician Name Role Phone RICARDO MAYOPHER Unavailable Unavailable LALO CHRISTOPHER Unavailable Unavailable RENALDO ELKINS Unavailable UnavailRENALDO Osman Unavailable UnavailRenaldo Osman Primary Care Provider [phone]( [phone] MARLENE ELKINS Admitting Unavailab MARLENE Sharp Attending [...] 5 mg oral tablet (20 sources)Opioid AgonistStart: 14-34-0103xhpf 1 tablet by mouth every six hours [...] oral tablet (1 source)Dihydropyridine Calcium Channel BlockerStart: 48-17-8052amsj 1 tablet by mouth once dailyamLODIPine (NORVASC) [...] lactate 0.028 meq/ml injectable solution (1 source)Start: 82-45-5249oopsaagl ringers infusionCarboxymethylcellulose (18 sources)Carboxymethylcellulose Sodium (ARTIFICIAL TEARS OP) Apply to eye as needed ActiveCarboxymethylcellulose Sodium (ARTIFICIAL TEARS OP) Apply to eye as needed 0 Activechlorhexidine gluconate 1.2 mg/ml mouthwash (20 sources)Start: 78-48-4541fzcrtsjpebqrg (PERIDEX) 0.12 % solution 09/04/2011 Activedocusate sodium [...] hydrochloride 5 mg oral tablet (18 sources)PhenothiazineStart: 32-43-6314bxlXBKIRPhlj HCl (PROLIXIN) 5 MG tablet daily 07/11/2019 [...] oral tablet (7 sources)Angiotensin 2 Receptor BlockerStart: 95-59-0016uowg 1 tablet by mouth once dailylosartan (COZAAR) [...] 30 mLs by mouth daily as needed Egjdmd93 hr metoprolol succinate 50 mg extended release oral tablet (7 sources)beta-Adrenergic BlockerStart: 61-34-2429jbsr 1 tablet by mouth once dailymetoprolol succinate (TOPROL XL) 50 MG extended release tablet Indications: Primary hypertension , Frequent PVCs Take 1 tablet by mouth daily 30 tablet 3 07/20/2023 ActiveStart: 47-26-9752wbeb 1 tablet by mouth once dailymetoprolol succinate [...] for Nausea or Vomiting Activepolyethylene glycol 3350 17382 mg powder for oral solution (13 sources)Osmotic Laxativepolyethylene glycol (GLYCOLAX) 17 GM/SCOOP powder Take 17 g by mouth daily ActiveQUEtiapine 25 mg oral tablet (18 sources)Atypical AntipsychoticStart: 47-20-9026VFTvfobovg (SEROQUEL) 25 MG tablet Take 1.5 tablets by mouth 07/29/2019 ActiveStart: 15-60-3804ABRnghxwdk (SEROQUEL) 25 MG tablet Take 25 mg by mouth 0 07/29/2019 Active3 ml sodium chloride 9 mg/ml injection (2 sources)Start: 38-79-6539gkktpg chloride flush 0.9 % injection 10 mLStart: 06-28-2404dvqugp chloride flush 0.9 % injection 10 mLtamsulosin [...] mg oral tablet (20 sources)Start: 03-25-2023 End: 73-40-3324hbek 1 tablet by mouth every six hours [...] (1 source)Aminoglycoside Antibacterial, Polymyxin-class Antibacterial, Corticosteroid End: 48-77-6360rjwjzabd-fbdyghgshg-dyigmavtp-kutvyphzazepdd (CORTISPORIN) 1 % ophthalmic ointment 2 times daily 0 01/01/2020 Discontinued (LIST CLEANUP)barium sulfate 105 % suspension 1,900 mL (1 source)Start: 01-21-2020 End: 87-14-9142hufryw sulfate 105 % suspension 1,900 mLbenztropine mesylate 1 mg oral tablet (3 sources)Anticholinergic, Antihistamine End: 01-60-5282nsfy 1 tablet by mouth twice dailybenztropine (COGENTIN) 1 MG tablet Take 1 mg by mouth 2 times daily. 0 01/01/2020 Discontinued (LIST CLEANUP)ibuprofen 400 mg oral tablet (3 sources)Nonsteroidal Anti-inflammatory DrugStart: 08-10-2016 End: 10-31-9603eytnyzvfn (ADVIL;MOTRIN) 400 MG tablet4 ml labetalol hydrochloride 5 mg/ml cartridge (1 source)beta-Adrenergic BlockerStart: 01-01-2020 End: 58-29-7858tytunzral (NORMODYNE;TRANDATE) injection 10 mg24 hr niacin 500 mg extended release oral tablet (3 sources)Nicotinic Acid End: 79-71-5325dcef 1 tablet by mouth once dailyniacin (NIASPAN) 500 MG CR tablet Take 500 mg by mouth nightly. 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, unspecified]Onset: 065101-05-9916RvesqjkYwbetpb dysrhythmias (3 sources)Ventricular premature complex; Translations: [Ventricular premature depolarization]57-83-7111DmigvzbUmmqxpxqreymc disorders (3 sources)Developmental disorder; 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]Onset: 533346-81-9942ZgfrnkhZtbztrznl congenital anomalies (1 source)Congenital redundant colon; 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]Chronic Disorders of lipid metabolism (14 sources)Mixed hyperlipidemia; Translations: [Mixed hyperlipidemia]Onset: 608262-49-4290LamahcyS Codes: Fall (2 sources)Fall; Translations: [Unspecified fall, initial encounter]Onset: 914816-90-9312ZfmjwatkP Codes: Fall (1 source)FallOnset: 74-62-2053Nuaruwzzqy disorders (14 sources)Gastroesophageal reflux disease; Translations: [Gastro-esophageal reflux disease without esophagitis]Onset: 548326-34-6588GcphbypVfvgnkbbl hypertension (3 sources)Essential hypertension; Translations: [Essential (primary) hypertension]Onset: 915397-21-2417IecjsdnUlohuhelyrkyk symptoms and ill- defined conditions (20 sources)Urinary incontinence; Translations: [Unspecified urinary incontinence]Onset: 619425-93-5105SvrsfurNpggezutzbq of prostate (20 sources)Benign prostatic hyperplasia with lower urinary tract symptoms; Translations: [Benign prostatic hypertrophy with outflow obstruction]Onset: 942448-09-2077RisvgrhKqdhcettmrmpy and screening for infectious disease (4 sources)Contact with and (suspected) exposure to other viral communicable diseases; Translations: [CONTCT EXPS OTH VIRL COMMUNICABL DZ]Onset: 12-17-2019 EpisodicMood disorders (12 sources)Depressive disorder; Translations: [Depressive disorder]Onset: 993587-39-0893FwyiorpZhnhebxnosvyic (2 sources)Unspecified osteoarthritis, unspecified site; Translations: [Unspecified osteoarthritis, unspecified site]Onset: 93-75-3073FswccxiGwadp acquired deformities (1 source)Unspecified kyphosis, thoracolumbar region; Translations: [UNSPECIFIED KYPHOSIS, THORACOLUMBAR REGION]Onset: 63-99-6698BrtqmxbIuqdu acquired deformities (1 source)Kyphoscoliosis deformity of spine; Translations: [Scoliosis, unspecified]Onset: 265830-77-9923ChhromcEzvkq acquired deformities (1 source)Lumbar lordosis; Translations: [Lordosis, unspecified, lumbar region] Onset: 835359-91-0708IegqrqpJzcgo acquired deformities (2 sources)Scoliosis, unspecified; Translations: [Scoliosis, unspecified]Onset: 43-63-6336YxzbivmFxxyc acquired deformities (2 sources)Postural lordosis, lumbar region; Translations: [Postural lordosis, lumbar region]Onset: 55-86-6237OtsstlwXwgne acquired deformities (2 sources)Lordosis, unspecified, lumbar region; Translations: [Lordosis, unspecified, lumbar region]Onset: 40-23-6813EbglxpuCseua congenital anomalies (1 source)Congenital hip dysplasia; Translations: [Other specified congenital deformities of hip]Onset: 172721-27-9383BshtvxcUylcw congenital anomalies (2 sources)Other specified congenital deformities of hip; Translations: [Other specified congenital deformities of hip]Onset: 05-39-5148EeqskkyBmgbh diseases of bladder and urethra (12 sources)Neurogenic bladder; Translations: [Neuromuscular dysfunction of bladder, unspecified]Onset: 677486-55-4275CjfrknbPjdvt diseases of bladder and urethra (2 sources)Neuromuscular dysfunction of bladder, unspecified; Translations: [Neuromuscular dysfunction of bladder, unspecified]Onset: 32-61-0639AxymnlaObqgg diseases of kidney and ureters (1 source)Hydronephrosis; Translations: [Unspecified hydronephrosis]Onset: 468913-86-2895JxvwjjbmRvqat screening for suspected conditions (not mental disorders or infectious disease) (5 sources)Electrocardiogram abnormal; Translations: [Abnormal electrocardiogram [ECG] [EKG]]Onset: 428899-10-5454YxovsgtiDtipc skin disorders (1 source)Inflammatory dermatosis; Translations: [Disorder of the skin and subcutaneous tissue, unspecified]Onset: 493485-80-0964DvdnsqlsFobimele codes; unclassified (1 source)Family history of cancer of colon; Translations: [Family history of colon cancer in father]EpisodicResidual codes; unclassified (1 source)Family history of replacement of total knee joint; Translations: [Family history of other diseases of the musculoskeletal system and connective tissue]Onset: 530580-10-3168DvrdlonoNojylmvgyoywv and other psychotic disorders (16 sources)Schizophrenia; Translations: [Schizophrenia, unspecified]Onset: 641258-64-4918ZomobtzBznzuqazsaj; intervertebral disc disorders; other back problems (2 sources)Other intervertebral disc displacement, thoracolumbar region; Translations: [Other intervertebral disc displacement, lumbosacral region]Onset: 11-46-6905WrljvzqVxyzjdctnakq (2 sources)Unknown / UNK(Unknown)Onset: 77-90-5888Mlvuvczucfep (1 source)Patient encounter status; Translations: [Preop testing]Unclassified (2 sources)Benign localized hyperplasia of prostate with urinary obstruction and other lower urinary tract symptoms (LUTS)(600.21)Onset: Unclassified (1 source)EMSOnset: 04-03-2025 Past or Other Problems Problem ClassificationProblemDateDocumented DateEpisodic/ChronicDeficiency and other anemia (2 sources)Anemia, unspecified; Translations: [Anemia, unspecified]Onset: 84-15-3379YcdqytgkBiaqzbpod of teeth and jaw (14 sources)Dental caries; Translations: [Dental caries, unspecified]Onset: 318430-75-0340EfqzcdclZlfdofxm of upper limb (1 source)Closed fracture of shaft of humerus; Translations: [Displaced comminuted fracture of shaft of humerus, right arm, initial encounter for closed fracture]Onset: 311875-13-3462KdsktiluPeysbfuyacudi symptoms and ill- defined conditions (20 sources)Incomplete emptying of bladder; Translations: [Retention of urine, unspecified]Onset: 409223-34-4204KjsscmilFzruw aftercare (2 sources)Other long winder tender (current) drug therapy; Translations: [Other long winder tender (current) drug therapy]Onset: 22-37-4837JauranfmNaunq connective tissue disease (12 sources)Chronic musculoskeletal pain; Translations: [Myalgia, other site] Onset: 845604-64-5090XdggthwfNjdlg gastrointestinal disorders (12 sources)Chronic constipation; Translations: [Other constipation]Onset: 122637-83-4890WjwxmdwdBgown gastrointestinal disorders (12 sources)Dysphagia; Translations: [Dysphagia, unspecified]Onset: 08-16-2020 58-85-5911RitpfwvgKuxhh hereditary and degenerative nervous system conditions (12 sources)Tardive dyskinesia; Translations: [Drug induced subacute dyskinesia] Onset: 176565-09-6194ZdsznbssYodim hereditary and degenerative nervous system conditions (2 sources)Drug induced subacute dyskinesia; Translations: [Drug induced subacute dyskinesia]Onset: 79-03-9539BivtpsqbEzanr nutritional; endocrine; and metabolic disorders (11 sources)Developmental delay; Translations: [Unspecified lack of expected normal physiological development in childhood]Onset: 631284-08-5782 EpisodicResidual codes; unclassified (1 source)For resuscitation; Translations: [Other specified health status]Onset: 266805-90-4502JjkddwwyEwuzxgxzqex; intervertebral disc disorders; other back problems (9 sources)Low back pain; Translations: [Spinal stenosis, thoracic region]Onset: 885939-54-9527Gmqrdjbe Results Test NameValueInterpretationReference RangeFacilityCT CERVICAL SPINE WO CONTon 49-50-7425KQ CERVICAL SPINE WO CONTCT CERVICAL SPINE WO [...] changes in the cervical spine. Finalized by Suersh Gibson MD on 04/04/2025 12:04 AMNormalProMedica Bay Park Hospitalca [facility] Medical CenterCT CHEST WO CONTon 38-79-3832WF CHEST WO CONTCT CHEST WO CONT CT [...] by Suresh Gibson MD on 04/04/2025 12:32 AMNormalProLancaster Municipal Hospitalca [facility] Medical CenterCT ABDOMEN AND PELVIS WO CONTon 82-92-2018EE ABDOMEN AND PELVIS WO CONT CT ABDOMEN [...] by Suresh Gibson MD on 04/03/2025 11:54 PMNFort Hamilton HospitalCT BRAIN WO CONTon 25-04-2043IT BRAIN WO CONTCT BRAIN WO CONT CLINICAL [...] by Jorden Sebastian MD on 04/03/2025 11:32 PMNFort Hamilton HospitalLipid Panelon 95-21-7134Rqcxhdrwtbv [Mass/Vol]119 mg/dL0 - 199 mg/dLBon [facility] Seeq [facility] HospitalComment on above: Cholesterol Guidelines: <200 Desirable 200-240 Borderline >240 Undesirable Cholesterol in HDL [Mass/Vol]31 mg/dLLow40 - PINF mg/dLBon [facility] [employer] Comment on above: HDL Guidelines: <40 Undesirable 40-59 Borderline >59 Desirable Cholesterol in LDL [Mass/Vol]67 mg/dL0 - 100 mg/dLBon [facility] [employer] Comment on above: LDL Guidelines: <100 Desirable 100-129 Near to/above Desirable 130-159 Borderline >159 Undesirable Direct (measured) LDL and calculated LDL are not interchangeable tests. Cholesterol in VLDL [Mass/Vol]21 mg/dL1 - 30 mg/dLBon [facility] [employer] Cholesterol.total/Cholesterol in HDL [Mass ratio]3.8 {ratio}NINF - 5.0Bon [facility] PhatNoiseInterpretation and review of laboratory resultsAbnormalBon [facility] HospitalTriglyceride [Mass/Vol]105 mg/dLNINF - 150 mg/dLBon [facility] Seeq [facility] HospitalComment on above: Triglyceride Guidelines: <150 Desirable 150-199 Borderline 200-499 High >499 Very high Based on AHA Guidelines for fasting triglyceride, March 2012. Caleb Galicia [facility] HospitalLipid Profileon 34-03-7311Dfhqzkemdee [Mass/Vol]119 mg/dLNormal0-199[facility] CampusComment on above:Result Comment: Cholesterol Guidelines: <200 Desirable 200-240 Borderline >240 UndesirablePerformed By: #### GLU #### [address] [place] [id number] Nuclear Physicist: Brandon Ku MD #### LIPR #### [address] [id number] Nuclear Physicist: Nicola Michaels MDCholesterol in HDL [Mass/Vol]31 mg/dLLow>40Sum[facility] Barber[facility] CampusComment on above:Result Comment: HDL Guidelines: <40 Undesirable 40-59 Borderline >59 DesirablePerformed By: #### GLU #### [address] [place] [id number] Nuclear Physicist: Brandon Ku MD #### LIPR #### [address] [address] Nuclear Physicist: RAS Leaholesterol in LDL [Mass/Vol]67 mg/dLNormal0-100 White Hospitalment on above:Result Comment: LDL Guidelines: <100 Desirable 100-129 Near to/above Desirable 130-159 Borderline >159 Undesirable Direct (measured) LDL and calculated LDL are not interchangeable tests.Performed By: #### GLU #### [address] [place] [address] Nuclear Physicist: Brandon Ku MD #### LIPR #### [address] [id number] Nuclear Physicist: Nicola Michaels MDCholesterol in VLDL [Mass/Vol]21 mg/dLNormal1-30 [facility] CampusComment on above:Performed By: #### GLU #### [address] [place], [place] 85[address]83 Nuclear Physicist: Brandon Ku MD #### LIPR #### [address] [address] Nuclear Physicist: RAS Leaholesterol.total/Cholesterol in HDL [Mass ratio]3.8 {ratio}Normal<5.0Sum[facility] Barber[facility] CampusComment on above:Performed By: #### GLU #### [address] [place], [place] [address]383 Nuclear Physicist: Brandon Ku MD #### LIPR #### [address] [address] Nuclear Physicist: Nicola Michaels MDTriglyceride [Mass/Vol]105 mg/dLNormal<150[facility] CampusComment on above:Result Comment: Triglyceride Guidelines: <150 Desirable 150-199 Borderline 200-499 High >499 Very high Based on AHA Guidelines for fasting triglyceride, March 2012.Performed By: #### GLU #### [address] [place] [address] Nuclear Physicist: Brandon Ku MD #### LIPR #### [address] [address] Nuclear Physicist: Nicola Michaels MDGlucoseon 29-57-2204Vokxtdv [Mass/Vol]154 mg/dL Knyd10-70FietiParkview HealthComment on above:Performed By: #### GLU #### [address] [place], [place] [address]83 Nuclear Physicist: Brandon Ku MD #### LIPR #### [address] [address] Nuclear Physicist: Nicola Michaels MDGlucose, Randomon 60-75-9000Urazddy [Mass/Vol] 154 mg/nKVuzr66 - 99 mg/dLBon [facility] HospitalInterpretation and review of laboratory resultsAbnormalBon [facility] HospitalBon [facility] Progress Noteson 57-76-5088Xbvgzmlbglupu Authentication Interface Message Text ----- October at 1:22:42 PM ----- ----- Provider: Chaitanya Samson DDS -- Clinic: [place] [address] ----- OR EVALUATION Patient presents for evaluation [...] time slot becomes available. Legal Guardian: [employer] Grace Sanders Next Visit: OR ----- Signed on October at 1:27:11 PM ----- ----- Provider: Chaitanya Samson DDS -- [facility]Ash[facility] -----NormalThe MetroOhiohealth Hardin Memorial Hospital SystemComp Metabolic Profon 71-16-2235Ukevfjz [Mass/Vol]4.0 g/dL Normal3.5-5.2Bon [facility] HospitalComment on above:Performed By: #### PSAS #### [address] [place] [address] Nuclear Physicist: Nicola Michaels MD #### TSH, CP #### [facility] [address] [place] [address] Nuclear Physicist: Brandon Ku, MDAlbumin/Glob Ratio1.5Welpbm1.0-2.5[facility] Barber[facility] CampusComhenry ford hospital on above:Performed By: #### PSAS #### [address] [address] Nuclear Physicist: Nicola Michaels MD #### TSH, CP #### [address] [place], [place] [address] Nuclear Physicist: Nas Gan Kvzf631 U/ZJkyf55-687UmyjlSumma Health Barberton CampusComhenry ford hospital on above:Performed By: #### PSAS #### [address] [address] Nuclear Physicist: Nicola Michaels MD #### TSH, CP #### [address] [place] [id number] Nuclear Physicist: Brandon Ku MDALT [Catalytic activity/Vol]13 U/VUubpao70-11Ats SecSt. Elizabeth Hospital on above:Performed By: #### PSAS #### [address] [address] Nuclear Physicist: Nicola Michaels MD #### TSH, CP #### [address] [place] [id number] Nuclear Physicist: Alondra Gan gap [Moles/Vol]10 mmol/LNormal9-16Bon SecMercy Health Perrysburg HospitalComhenry ford hospital on above:Performed By: #### PSAS #### [address] [address] Nuclear Physicist: Nicola Michaels MD #### TSH, CP #### [address] [place] [id number] Nuclear Physicist: Brandon Ku MDAST [Catalytic activity/Vol]20 U/SZuwnsi78-62Tbx SecSt. Elizabeth Hospital on above:Performed By: #### PSAS #### [address] [address] Nuclear Physicist: Nicola Michaels MD #### TSH, CP #### [address] [place], [place] [address]483 Nuclear Physicist: Brandon Ku MDBilirubin [Mass/Vol]0.2 mg/dLNormal0.00-1.20[facility] HospitalComment on above:Performed By: #### PSAS #### [address] [address] Nuclear Physicist: Nicola Michaels MD #### TSH, CP #### [address] [place], [place] [address]683 Nuclear Physicist: Brandon Ku MDBUN/CRE Bdjjw30Mixbnb1-92Hfapj [facility] Comment on above:Performed By: #### PSAS #### [address] [address] Nuclear Physicist: Nicola Michaels MD #### TSH, CP #### [address] [place] [id number] Nuclear Physicist: Brandon Ku MDCalcium [Mass/Vol]9.1 mg/dLNormal8.6-10.4Bon SecSt. Elizabeth Hospital on above:Performed By: #### PSAS #### [address] [address] Nuclear Physicist: Nicola Michaels MD #### TSH, CP #### [address] [place], [place] 2367383 Nuclear Physicist: RAS Ganhloride [Moles/Vol]103 mmol/WHbwepf87-395Zhd SecMercy Health Perrysburg HospitalComment on above:Performed By: #### PSAS #### [address] [address] Nuclear Physicist: Nicola Michaels MD #### TSH, CP #### [facility] [address] [place] [address] Nuclear Physicist: RAS GanO2 [Moles/Vol]23 mmol/GGsonsb18-96Gft [facility] on above:Performed By: #### PSAS #### [place] [address] [place] [address] Nuclear Physicist: Nicola Michaels MD #### TSH, CP #### [address] [place] [address] Nuclear Physicist: RAS Ganreatinine [Mass/Vol]0.7 mg/dLNormal0.70-1.20Bon [facility] on above:Performed By: #### PSAS #### [address] [address] Nuclear Physicist: Nicola Michaels MD #### TSH, CP #### [address] [place] [id number] ( Nuclear Physicist: Brandon Ku MDGFR/1.73 sq M.predicted among non-blacks MDRD (S/P/Bld) [Vol rate/Area]mL/min/{1.73_m2}Normal>60[facility] on above:Result Comment: These results are [...] renal tubular secretion.Performed By: #### PSAS #### [facility] [employer] [facility] [place] [address] Nuclear Physicist: Nicola Michaels MD #### TSH, CP #### [address] [place], [place] [address] Nuclear Physicist: Brandon Ku MDGlucose [Mass/Vol]111 mg/eDXpab32-60Kau [facility] on above:Performed By: #### PSAS #### [address] [address] Nuclear Physicist: Nicola Michaels MD #### TSH, CP #### [address] [place], [place] [address]483 Nuclear Physicist: GREGORIO Ganotassium [Moles/Vol]4.3 mmol/LNormal3.7-5.3Bon [facility] on above:Performed By: #### PSAS #### [address] [address] Nuclear Physicist: Nicola Michaels MD #### TSH, CP #### [address] [place], [place] 8999183 Nuclear Physicist: GREGORIO Ganrotein [Mass/Vol]6.7 g/dLNormal6.6-8.7Bon [facility] on above:Performed By: #### PSAS #### [address] [address] Nuclear Physicist: Nicola Michaels MD #### TSH, CP #### [address] [place], [place] [address]83 Nuclear Physicist: Brandon Ku MDSodium [Moles/Vol]136 mmol/KWltdko116-759Yzc [facility] on above:Performed By: #### PSAS #### [address] [address] Nuclear Physicist: Nicola Michaels MD #### TSH, CP #### [address] [place] [address] Nuclear Physicist: Brandon Ku MDUrea nitrogen [Mass/Vol]14 mg/dLNormal8-23Bon [facility] on above:Performed By: #### PSAS #### [facility] [address] [place], [place] [address] Nuclear Physicist: Nicola Michaels MD #### TSH, CP #### [facility] [address] [place] [address] Nuclear Physicist: Brandon Ku [facility] WAURIKAomprehensive Metabolic Panelon 06-18-2024 Albumin/Globulin [Mass ratio]1.5 {ratio}1.0 - 2.5Bon [facility] HospitalALP [Catalytic activity/Vol]141 U/LHigh40 - 129 U/LBon [facility] HospitalEst, Glom Filt Rate- PINFBon [facility] on above: These results are not intended [...] tubular secretion. Interpretation and review of laboratory resultsAbnormalCarilion [facility] Urea nitrogen/Creatinine [Mass ratio]20 mg/mg9 - 20Bon [facility] HospitalNo Panel Informationon 05-74-7832Iwy [facility] Screeningon 06-18-2024 Prostate specific Ag [Mass/Vol]1.92 ng/mL0.00 - 4.00 ng/mLRiverside Doctors' Hospital [place] on above:The Yakelin ECLIA assay is used. Results obtained with different assay methods cannot be used interchangeably. Bon [facility] HospitalA, Screeningon 42-76-6988Drojuaxrw Spec. Ag1.92 ng/mL Normal0.00-4.00[facility] on above:Result Comment: The Yakelin ECLIA assay is used. Results obtained with different assay methods cannot be used interchangeably.Performed By: #### PSAS #### [facility] [employer] [address] [place], [place] [address] Nuclear Physicist: Nicola Michaels MD #### TSH, CP #### [address] [place] [address] Nuclear Physicist: Brandon Ku MDHon 03-50-0771NQW Qn1.76 m[IU]/LBon SecMercy Health Perrysburg HospitalThyroid Stim. Horm.on 54-10-1921Pfemmis Stim. Horm.1.76 uIU/mLNormal 0.27-4.20[facility] CampusComment on above:Performed By: #### PSAS #### [facility] [employer] [facility] [place], [place] [id number] Nuclear Physicist: Nicola Michaels MD #### TSH, CP #### [address] [place] [address] Nuclear Physicist: Brandon Ku [facility] with Auto Differentialon 79-48-0230Phlmzncpu (Bld) [#/Vol]0.04 10*3/uLBon [facility] HospitalBasophils/100 WBC (Bld)1 %0 - 2 %[facility] Medical CenterEosinophils (Bld) [#/Vol][facility] Eosinophils/100 WBC (Bld)0 %Low1 - 4 %[facility] Medical CenterErythrocyte distribution width (RBC) [Ratio]14.3 %11.8 - 14.4 %[facility] Hematocrit (Bld) [Volume fraction]42.6 %40.7 - 50.3 %[facility] [facility] Hemoglobin (Bld) [Mass/Vol]13.9 g/dL13.0 - 17.0 g/dLBon [facility]Mer[facility] Immature granulocytes (Bld) [#/Vol]Bon [facility] HospitalImmature granulocytes/100 WBC (Bld)0 %0Bon [facility] HospitalInterpretation and review of laboratory resultsAbnormalBon [facility]y [facility] HospitalLymphocytes/100 WBC (Bld)27 %24 - 43 %[facility] CenterLymphocytes/100 WBC (Bld)1.47 %[facility] HospitalH (RBC) [Entitic mass]28.3 pg25.2 - 33.5 pgBon [facility] HospitalHC (RBC) [Mass/Vol]32.6 g/dL28.4 - 34.8 g/dLBon SecMercy Health Allen HospitalV (RBC) [Entitic vol]86.8 fL82.6 - 102.9 fLBon [facility] HospitalMonocytes/100 WBC (Bld)10 %3 - 12 %Bon [facility] HospitalMonocytes/100 WBC (Bld)0.57 %Bon [facility] HospitalNeutrophils/100 WBC (Bld)62 %36 - 65 %Bon [facility] HospitalNucleated RBC/100 WBC (Bld) [Ratio]0.0 %0.0 per 100 WBCBon [facility] HospitalPlatelet mean volume (Bld) [Entitic vol]11.2 fL8.1 - 13.5 fLBon [facility] HealthPlatelets (Bld) [#/Vol]179 10*3/uLBon [facility] HospitalRBC (Bld) [#/Vol]4.91 10*6/uL4.21 - 5.77 m/uLCarilion New River Valley Medical CenterSegmented neutrophils/100 WBC (Bld)3.44 %[facility] CenterWBC other (Bld) [#/Vol] 5.5Bon SecRiver Falls Area HospitalCBC with Diffon 05-29-2024 Abs. Basophil0.04 k/uLNormal0.00-0.20[facility] CampusComment on above: Performed By: #### URI, GLU, CDP #### [facility] [address] [place] [address] Nuclear Physicist: Brandon Ku MD #### LIPR #### [id number] [place] [address] Nuclear Physicist: Pietro Lea. Eosinophil<0.90Wcrmxf1.00-0.44[facility] Barber[facility] CampusComment on above:Performed By: #### URI, GLU, CDP #### [address] [place] [address] Nuclear Physicist: Brandon Ku MD #### LIPR #### [address] [address] Nuclear Physicist: Pietro Lea.Imm.Granulocyte<0.17Invmgq7.00-0.30[facility] CampusComment on above:Performed By: #### URI, GLU, CDP #### [address] [place] [phone] Nuclear Physicist: Brandon Ku MD #### LIPR #### [address] [address] Nuclear Physicist: Pietro Lea.Neutrophil (Seg)3.44 k/uLNormal1.50-8.10 [facility] CampusComment on above:Performed By: #### URI, GLU, CDP #### [address] [place] [phone] Nuclear Physicist: Brandon Ku MD #### LIPR #### [address] [address] Nuclear Physicist: Nicola Michaels MDBasophils/100 WBC (Bld)1 %Normal0-2[facility]/John Dempsey HospitalComment on above:Performed By: #### URI, GLU, CDP #### [address] [place], [place] 29[address]683 Nuclear Physicist: Brandon Ku MD #### LIPR #### [address] [address] Nuclear Physicist: Nicola Michaels MDEosinophils/100 WBC (Bld)0 %Low1-4[facility] Barber[facility] CampusComment on above:Performed By: #### URI, GLU, CDP #### [address] [place], [place] [id number] Nuclear Physicist: Brandon Ku MD #### LIPR #### [address] [id number] Nuclear Physicist: Nicola Michaels MDErythrocyte distribution width (RBC) [Ratio]14.3 %Txhylv90.8-14.4[facility] Barber[facility] CampusComment on above:Performed By: #### URI, GLU, CDP #### [address] [place] [phone] Nuclear Physicist: Brandon Ku MD #### LIPR #### [address] [phone] Nuclear Physicist: Nicola Michaels MDHematocrit (Bld) [Volume fraction]42.6 %Normal 40.7-50.3Msouthern ohio medical centery [facility]/John Dempsey HospitalComment on above:Performed By: #### URI, GLU, CDP #### [address] [place] [phone] Nuclear Physicist: Brandon Ku MD #### LIPR #### [address] [phone] Nuclear Physicist: Nicola Michaels MDHemoglobin (Bld) [Mass/Vol]13.9 g/dLNormal 13.0-17.0[facility] CampusComment on above:Performed By: #### URI, GLU, CDP #### [address] [place] [phone] Nuclear Physicist: Brandon Ku MD #### LIPR #### [address] [id number] Nuclear Physicist: Nicola Michaels MDImmature granulocytes/100 WBC (Bld)0 %Normal0 [facility] CampusComment on above:Performed By: #### URI, GLU, CDP #### [address] [place], [place] 5187183 Nuclear Physicist: Brandon Ku MD #### LIPR #### [address] [address] Nuclear Physicist: Nicola Michaels MDLymphocytes (Bld) [#/Vol]1.47 10*3/uLNormal 1.10-3.70[facility] Barber[facility] CampusComment on above:Performed By: #### URI, GLU, CDP #### [address] [place] [phone] Nuclear Physicist: Brandon Ku MD #### LIPR #### [address] [address] Nuclear Physicist: Khadijah Leamphocytes/100 WBC (Bld)27 %Ffztdz83-20JodepSumma Health Barberton CampusComhenry ford hospital on above:Performed By: #### URI, GLU, CDP #### [address] [place] [phone] Nuclear Physicist: Brandon Ku MD #### LIPR #### [address] [address] Nuclear Physicist: DON LeaCH (RBC) [Entitic mass]28.3 mlGgkdyi53.2-33.5 [facility] on above:Performed By: #### URI, GLU, CDP #### [address] [place], [place] 2031883 Nuclear Physicist: Brandon Ku MD #### LIPR #### [address] [address] Nuclear Physicist: BERNADETTE LeaC (RBC) [Mass/Vol]32.6 g/gYMkinej46.4-34.8 [facility] CampusComment on above:Performed By: #### URI, GLU, CDP #### [address] [place] [address] Nuclear Physicist: Brandon Ku MD #### LIPR #### [place] [address] Nuclear Physicist: DON LeaCV (RBC) [Entitic vol]86.8 dOYkunsj67.6-102.9 [facility] CampusComment on above:Performed By: #### URI, GLU, CDP #### [address] [place] [phone] ( Nuclear Physicist: Brandon Ku MD #### LIPR #### [place] [address] Nuclear Physicist: DON Leaonocytes (Bld) [#/Vol]0.57 10*3/uLNormal 0.10-1.20[facility] CampusComment on above:Performed By: #### URI, GLU, CDP #### [address] [place] [address] Nuclear Physicist: Brandon Ku MD #### LIPR #### [place] [address] Nuclear Physicist: DON Leaonocytes/100 WBC (Bld)10 %Normal3-12Sum[facility] Barber[facility] CampusComment on above:Performed By: #### URI, GLU, CDP #### [address] [place] [phone] ( Nuclear Physicist: Brandon Ku MD #### LIPR #### [place] [address] Nuclear Physicist: Nicola Michaels MDNeutrophil (Seg)62 %Fzsuyk23-02OnnzqSumma Health Barberton CampusComment on above:Performed By: #### URI, GLU, CDP #### [address] [place] [phone] ( Nuclear Physicist: Brandon Ku MD #### LIPR #### [address] [phone] Nuclear Physicist: Nicola Michaels MDNRBC Automated0.0 per 100 WBCNormal0.0Sum[facility] Barber[facility] CampusComment on above:Performed By: #### URI, GLU, CDP #### [address] [place] [address] Nuclear Physicist: Brandon Ku MD #### LIPR #### [address] [phone] Nuclear Physicist: Ignacia Lea mean volume (Bld) [Entitic vol]11.2 fL Normal8.1-13.5[facility] Barber[facility] CampusComment on above:Performed By: #### URI, GLU, CDP #### [address] [place] [phone] ( Nuclear Physicist: Brandon Ku MD #### LIPR #### [address] [phone] Nuclear Physicist: Kayla Lea (Bld) [#/Vol]179 10*3/eKFlotcu594-663 [facility] CampusComment on above:Performed By: #### URI, GLU, CDP #### [address] [place] [phone] Nuclear Physicist: Brandon Ku MD #### LIPR #### [address] [address] Nuclear Physicist: RAJNI Lea (Bld) [#/Vol]4.91 10*6/uLNormal4.21-5.77 [facility] CampusComment on above:Performed By: #### URI, GLU, CDP #### [address] [place], [place] 8[address]2483 Nuclear Physicist: Brandon Ku MD #### LIPR #### [address] [phone] Nuclear Physicist: Nicola Michaels MDVA [facility] ([facility]) [#/Vol]5.5 10*3/uLNormal3.5-11.3MParkview HealthComment on above:Performed By: #### URI, GLU, CDP #### [address] [place] [phone] Nuclear Physicist: Brandon Ku MD #### LIPR #### [address] [address] Nuclear Physicist: Nicola Michaels MDGlucoseon 28-29-7283Rbtatgk [Mass/Vol]104 mg/dL Hugz95-23LihwaParkview HealthComment on above:Performed By: #### URI, GLU, CDP #### [address] [place], [place] [phone] Nuclear Physicist: Brandon Ku MD #### LIPR #### [address] [address] Nuclear Physicist: Nicola Michaels MDGlucose, Randomon 81-59-0250Oddithg [Mass/Vol] 104 mg/rZQtal29 - 99 mg/dLBon [facility] HospitalLipid Panelon 05-29-2024 Cholesterol [Mass/Vol]128 mg/dL0 - 199 mg/dLBon [facility] HospitalComment on above: Cholesterol Guidelines: <200 Desirable 200-240 Borderline >240 Undesirable Cholesterol in HDL [Mass/Vol]34 mg/dLLow40 - PINF mg/dLBon [facility] Comment on above: HDL Guidelines: <40 Undesirable 40-59 Borderline >59 Desirable Cholesterol in LDL [Mass/Vol]71 mg/dL0 - 100 mg/dLBon [facility] Comment on above: LDL Guidelines: <100 Desirable 100-129 Near to/above Desirable 130-159 Borderline >159 Undesirable Direct (measured) LDL and calculated LDL are not interchangeable tests. Cholesterol in VLDL [Mass/Vol]23 mg/dL1 - 30 mg/dLBon [facility] Cholesterol.total/Cholesterol in HDL [Mass ratio]3.8 {ratio}[facility] CenterInterpretation and review of laboratory resultsAbnormalBon [facility] HospitalTriglyceride [Mass/Vol]115 mg/dLNINF - 150 mg/dLBon [facility] Comment on above: Triglyceride Guidelines: <150 Desirable 150-199 Borderline 200-499 High >499 Very high Based on AHA Guidelines for fasting triglyceride, March 2012. [facility] CenterLipid Profileon 55-77-9350Vruripmizbw [Mass/Vol]128 mg/dLNormal0-199Sum[facility] CampusComment on above:Result Comment: Cholesterol Guidelines: <200 Desirable 200-240 Borderline >240 UndesirablePerformed By: #### URI, GLU, CDP #### [address] [place] [address] Nuclear Physicist: Brandon Ku MD #### LIPR #### [employer] [address] [place] [address] [phone] Nuclear Physicist: RAS Leaholesterol in HDL [Mass/Vol]34 mg/dLLow>40Sum[facility] Barber[facility] CampusComment on above:Result Comment: HDL Guidelines: <40 Undesirable 40-59 Borderline >59 DesirablePerformed By: #### URI, GLU, CDP #### [address] [place] [address] Nuclear Physicist: Brandon Ku MD #### LIPR #### [facility] [employer] [address] [place] [id number] Nuclear Physicist: RAS Leaholesterol in LDL [Mass/Vol]71 mg/dLNormal0-100 [facility] CampusComment on above:Result Comment: LDL Guidelines: <100 Desirable 100-129 Near to/above Desirable 130-159 Borderline >159 Undesirable Direct (measured) LDL and calculated LDL are not interchangeable tests.Performed By: #### URI, GLU, CDP #### [address] [place], [place] 1530383 Nuclear Physicist: Brandon Ku MD #### LIPR #### [address] [place], [place] [phone] Nuclear Physicist: RAS Leaholesterol in VLDL [Mass/Vol]23 mg/dLNormal1-30 [facility] on above:Performed By: #### URI, GLU, CDP #### [address] [place] [address] Nuclear Physicist: Brandon Ku MD #### LIPR #### [address] [place], [place] [phone] Nuclear Physicist: RAS Leaholestgiana.total/Cholesterol in HDL [Mass ratio]3.8 {ratio}NormalSumma Health Barberton CampusComhenry ford hospital on above:Performed By: #### URI, GLU, CDP #### [address] [place] [address] Nuclear Physicist: Brandon Ku MD #### LIPR #### [address] [place], [place] 1269108 Nuclear Physicist: Nicola Michaels MDTriglyceride [Mass/Vol]115 mg/dLNormal<150[facility] on above:Result Comment: Triglyceride Guidelines: <150 Desirable 150-199 Borderline 200-499 High >499 Very high Based on AHA Guidelines for fasting triglyceride, March 2012.Performed By: #### URI, GLU, CDP #### [address] [place] [address] Nuclear Physicist: Brandon Ku MD #### LIPR #### [employer] [address] [place] [address] Nuclear Physicist: Nicola Michaels MDNo Panel Informationon [id number] and review of laboratory resultsAbnormalBon SecLane Regional Medical Center HealthBon SecMercy Health Perrysburg HospitalUric Acidon 52-27-1963Ztrvn [Mass/Vol]3.3 mg/dLLow3.4 - 7.0 mg/dLBon [facility] HealthUrate [Mass/Vol]3.3 mg/dLLow3.4-7.0[facility] Comment on above:Performed By: #### URI, GLU, CDP #### [facility] [address] [place] [address] Nuclear Physicist: Brandon Ku MD #### LIPR #### [address] [place] [address] Nuclear Physicist: Nicola Michaels MDSilver [facility] metabolic 2000 panelOrdered By: Phillip Munoz on 22-05-7047Bllvn gap [Moles/Vol]15 mmol/L10 - 20MetroHealthCalcium [Mass/Vol]9.5 mg/dL8.4 [...] Med 1 Vol. 385 Issue 19 Pages [id number] Glucose [Mass/Vol]100 mg/dL80 - 116 mg/dLMetroHealthInterpretation and review of laboratory resultsAbnormalMetroHealthPotassium [Moles/Vol]4.7 mmol/L3.3 - 5.3 mmol/LMetroHealthSodium [Moles/Vol]139 mmol/L135 - 148 mmol/LMetroHealthUrea nitrogen [Mass/Vol]11 mg/dL8 - 22 mg/dLMetroHealthMetroHealthCBC panel Auto (Bld)Ordered By: Case Armijo on 62-59-6199Bxhqcywlysl distribution width (RBC) [Ratio]14.5 %11.5 - 14.5 %MetroHealthHematocrit (Bld) [Volume fraction]45.5 % 41.0 - 53.0 %MetroHealthHemoglobin (Bld) [Mass/Vol]15.0 g/dL13.9 - 16.3 g/dL MetroHealthInterpretation and review of laboratory resultsAbnormalMetroHealthMCH (RBC) [Entitic mass]28.5 pg26.0 - 34.0 pgMetroHealthMCHC (RBC) [Mass/Vol]32.8 g/dL32.0 - 35.9 g/dLMetroHealthMCV (RBC) [Entitic vol]87 fL80 - 100 fL MetroHealthPlatelet mean volume (Bld) [Entitic vol]9.6 fL7.5 - 11.2 fL MetroHealthPlatelets (Bld) [#/Vol]142 10*3/fYXag635 - 400 K/uLMetroHealthRBC (Bld) [#/Vol]5.24 10*6/uLMetroHealthWBC (Bld) [#/Vol]6.0 10*3/uL4.5 - 11.5 K/uL MetroHealthMetroHealthCardiologyon 03-15-2023 wave nbqf93rcqfmlrNpahyWdoilkM-A Nmsukkfk938 msMetroHealthQ-T pseqnrtr094 msMetroHealthQ-T interval cbqtrwywz046 msMetroHealthQRS byne10cdxoetcLklbsWmwsjoZSN dmpoohpb20 msMetroHealthT wave axis 10degreesMetroHealthNo Panel Informationon 89-85-0540CvowfdqpsRrpgwevwj noise Sinus rhythm with frequent Premature ventricular complexes No previous ECGs available Confirmed by YAZMIN MCKEON ([id number]) on 03/15/2023 3:17:47 PM MetroHealthP wave Atrium by SUG58GVOMkwxmTqdmwaQonmvGbtppkZzsbocl, Randomon 69-96-8581Nueqmwn [Mass/Vol]113 mg/bKRfue95 - 99 mg/dLBON [employer] Interpretation and review of laboratory resultsAbnoRehoboth McKinley Christian Health Care ServicesAdWired [facility] Labrys BiologicsLipid Panelon 63-56-2873Dcsbmqbjgxa [Mass/Vol]130 mg/dL NINF - 200 mg/dLBON [employer] BiologicsComment on above: Cholesterol Guidelines: <200 Desirable 200-240 Borderline >240 Undesirable Cholesterol in HDL [Mass/Vol]35 mg/dLLow40 - PINF mg/dLB [employer] Comment on above: HDL Guidelines: <40 Undesirable 40-59 Borderline >59 Desirable Cholesterol in LDL [Mass/Vol]76 mg/dL0 - 130 mg/dLBON [employer] Comment on above: LDL Guidelines: <100 Desirable 100-129 Near to/above Desirable 130-159 Borderline >159 Undesirable Direct (measured) LDL and calculated LDL are not interchangeable tests. Cholesterol.total/Cholesterol in HDL [Mass ratio]3.7 {ratio}NINF - 5BON [employer] BiologicsInterpretation and review of laboratory resultsAbnoRehoboth McKinley Christian Health Care ServicesAdWiredTriglyceride [Mass/Vol]97 mg/dLNINF - 150 mg/dLBON [employer] BiologicsComment on above: Triglyceride Guidelines: <150 Desirable 150-199 Borderline 200-499 High >499 Very high Based on AHA Guidelines for fasting triglyceride, March 2012. ScramblerMailComprehensive Metabolic Panelon 48-34-6681Jvwjhnt [Mass/Vol]3.8 g/dL3.5 - 5.2 g/dLBON [employer] BiologicsAlbumin/Globulin [Mass ratio]1.5 {ratio}1.0 - 2.5BON [facility] AudioBetaALP (Bld) [Catalytic activity/Vol]141 U/LHigh40 - 129 U/LBON SECAdWiredALT [Catalytic activity/Vol]15 U/L5 - 41 U/LBON SECAdWiredAnion gap [Moles/Vol]9 mmol/L9 - 17 mmol/LBON [facility] [employer] [facility] [Catalytic activity/Vol]21 U/L NINF - 40 U/LBON [facility] AudioBetaBilirubin [Mass/Vol]0.3 mg/dL0.3 - 1.2 mg/dLBON [facility]MESILLA [facility] AudioBetaCalcium [Mass/Vol]9.0 mg/dL8.6 - 10.4 mg/dLBON [facility]ILL[facility] AudioBetaChloride [Moles/Vol]102 mmol/L98 - 107 mmol/LBON [facility] AudioBetaCO2 [Moles/Vol]23 mmol/L20 - 31 mmol/LBON [facility] [employer] Creatinine [Mass/Vol]0.52 mg/dLLow0.70 - 1.20 mg/dLBON [facility] VALLEYAdWired GFR/1.73 sq M.predicted MDRD (S/P/Bld) [Vol rate/Area]- PINFBON [facility] OF EAST VALLEYAdWiredComment on above: Effective Mar 05, 2022 These [...] secretion. Glucose [Mass/Vol]90 mg/dL70 - 99 mg/dLBON Lab[employer] BiologicsInterpretation and review of laboratory resultsAbnormalBON SECOURS AudioBetaPotassium [Moles/Vol]3.9 mmol/L3.7 - 5.3 mmol/LBON SECAdWiredProtein [Mass/Vol] 6.3 g/dLLow6.4 - 8.3 g/dLBON [facility] EAST VALLEYAdWiredSodium [Moles/Vol]134 mmol/LLow 135 - 144 mmol/LBON SECAdWiredUrea nitrogen (BldV) [Mass/Vol]13 mg/dL8 - 23 mg/dLBON [facility] MEDICAL CENTERUrea nitrogen/Creatinine (Bld) [Mass ratio]25 High9 - 20BON [facility] CENTERNo Panel Informationon [id number] [facility] CENTERPSA Screeningon 97-22-5722WNO [facility] MEDICAL CENTERTSHon 06-27-2022 TSH Qn1.66 m[IU]/LBON [facility] CENTERGlucose, Randomon 92-50-5517Gfduzna [Mass/Vol]130 mg/gXAotj97 - 99 mg/dLBON [facility] CENTERInterpretation and review of laboratory resultsAbnormalCJW MEDICAL CENTERLipid Panelon 94-74-1612Awnbvscvjof [Mass/Vol]117 mg/dL<200BON [facility] CENTERComment on above: Cholesterol Guidelines: <200 Desirable 200-240 Borderline >240 Undesirable Cholesterol in HDL [Mass/Vol]33 mg/dLLow>40BON [facility] CENTERComment on above: HDL Guidelines: <40 Undesirable 40-59 Borderline >59 Desirable Cholesterol in LDL [Mass/Vol]63 mg/dL0 - 130 mg/dLBON [facility] Comment on above: LDL Guidelines: <100 Desirable 100-129 Near to/above Desirable 130-159 Borderline >159 Undesirable Direct (measured) LDL and calculated LDL are not interchangeable tests. Cholesterol.total/Cholesterol in HDL [Mass ratio]3.5 {ratio}<5BON [facility] CENTERInterpretation and review of laboratory resultsAbnormalSMYTH COUNTY COMMUNITY HOSPITALTriglyceride [Mass/Vol]107 mg/dL<150BON [facility] Eastment on above: Triglyceride Guidelines: <150 Desirable 150-199 Borderline 200-499 High >499 Very high Based on AHA Guidelines for fasting triglyceride, March 2012. [facility] Hospitalprehensive Metabolic Panelon 32-75-4593Dsnlxxe [Mass/Vol]4 g/dL3.5 - 5.2 g/dLMercy HealthAlbumin/Globulin [Mass ratio]1.2 {ratio}[facility] HospitalALP (Bld) [Catalytic activity/Vol]154 U/LHigh40 - 129 U/L [facility] HospitalALT [Catalytic activity/Vol]22 U/L5 - 41 U/LMercy HealthAnion gap [Moles/Vol]17 mmol/L9 - 17 mmol/LMercy HealthAST [Catalytic activity/Vol]32 U/L <40[facility] HealthBilirubin [Mass/Vol]0.34 mg/dL0.3 - 1.2 mg/dLChillicothe Va [facility] Center HealthCalcium [Mass/Vol]9.5 mg/dL8.6 - 10.4 mg/dLChillicothe Va [facility] Center HealthChloride [Moles/Vol]102 mmol/L98 - 107 mmol/LMercy HealthCO2 [Moles/Vol]17 mmol/LLow20 - 31 mmol/LMercy Health Creatinine [Mass/Vol]0.63 mg/dLLow0.70 - 1.20 mg/dLMercy Health Allen HospitalFree PSA/Total PSA [Mass fraction]7.4 g/dL6.4 - 8.3 g/dLChillicothe Va Medical Center HealthGFR >60>60 mL/minChillicothe Va Medical Center HealthGFR Non->60>60 mL/minChillicothe Va Medical Center HealthGlucose [Mass/Vol]145 mg/oWMtzo70 - 99 mg/dLMercy Health Allen HospitalInterpretation and review of laboratory resultsAbnormalChillicothe Va Medical Center HealthPotassium [Moles/Vol]4.5 mmol/L3.7 - 5.3 mmol/LMercy HealthSodium [Moles/Vol]136 mmol/L135 - 144 mmol/LMercy HealthUrea nitrogen (BldV) [Mass/Vol]10 mg/dL8 - 23 mg/dLMercy Health Allen HospitalUrea nitrogen/Creatinine (Bld) [Mass ratio]16[facility] HospitalLaboratory - Chemistry and Chemistry - challengeon 41-31-2076PEU/1.73 sq M.predicted MDRD (S/P/Bld) [Vol rate/Area][facility] HospitalComment on above:Average GFR for 60-69 years old: 85 mL/min/1.73sq m Chronic Kidney Disease: <60 mL/min/1.73sq m Kidney failure: <15 mL/min/1.73sq m eGFR calculated using average adult body mass. Additional eGFR calculator available at: http://www.[employer].Dispop/multiple_crcl_2011.htm Stage 1: Some kidney damage normal GFR Stage 2: Mild kidney damage GFR 60-89 Stage 3: Moderate kidney damage GFR 30-59 Stage 4: Severe kidney damage GFR 15-29 Stage 5: Severe kidney damage GFR <15 ESRD - chronic treatment by dialysis or transplant PSA screeningon 52-40-2684Xnldz HealthTS without Reflexon 17-62-8095CAM Qn1.29 m[IU]/LocalVox MediaEK 12 LeadOrdered By: Darío Castro on 35-10-1336Mrvmpk Okjo72AKRCrynvRelayr Phone: p [email or web address] Phone: p-R [id number] [employer] Phone: Q-T Ijanolee961 [employer] Phone: QRS Rtxgcauq69 [employer] Work Phone: QTc Calculation (Leeroy)[phone] [employer] Work Phone: r [email or web address] Phone: T [email or web address] Phone: Ventricular Tpqn85QHTFbyokRelayr Phone: Poor data quality, interpretation may be adversely affected Normal sinus rhythm Normal ECG When compared with ECG of 22-JUL-2010 13:59, T wave inversion now evident in Inferior leads Confirmed by QING ALEXANDER ([id number]) on 01/03/2021 2:40:23 PM [employer] Work Phone: edi, [facility] Incoming Ekg Results From [employer] [place] - 01/03/2021 2:40 PM EDT Poor data quality, interpretation may be adversely affected Normal sinus rhythm Normal ECG When compared with ECG of 22-JUL-2010 13:59, T wave inversion now evident in Inferior leads Confirmed by QING ALEXANDER ([id number]) on 01/03/2021 2:40:23 PMLessonwriter Phone: [facility] SystemBunch Phone: Glucose, randomOrdered By: Shi Metz on 75-31-1840Xwyciom [Mass/Vol]115 mg/uAVtsj37 - 99 mg/dLThe Metrohealth SystemBunch Phone: Interpretation and review of laboratory results AbnormalThe Metrohealth SystemBunch Phone: [facility] SystemBunch Phone: lipid PanelOrdered By: Shi Metz on 11-02-2020 Cholesterol [Mass/Vol]146 mg/dL<200The [facility]health SystemBunch Phone: comment on above: Cholesterol Guidelines: <200 Desirable 200-240 Borderline >240 Undesirable Cholesterol in HDL [Mass/Vol]41 mg/dL>40The [facility]health SystemBunch Phone: comment on above: HDL Guidelines: <40 Undesirable 40-59 Borderline >59 Desirable Cholesterol in LDL [Mass/Vol]84 mg/dL0 - 130 mg/dLThe Metrohealth SystemBunch Phone: comment on above: LDL Guidelines: <100 Desirable 100-129 Near to/above Desirable 130-159 Borderline >159 Undesirable Direct (measured) LDL and calculated LDL are not interchangeable tests. Cholesterol in VLDL [Mass/Vol]NOT REPORTED1 - 30 mg/dLThe Metrohealth SystemBunch Phone: cholesterol.total/Cholesterol in HDL [Mass ratio]3.6 {ratio}<5MerBunch Phone: Triglyceride [Mass/Vol]107 mg/dL<150[facility] [employer] Phone: comment on above: Triglyceride Guidelines: <150 Desirable 150-199 Borderline 200-499 High >499 Very high Based on AHA Guidelines for fasting triglyceride, March 2012. [employer] Phone: [place] BARIUM ENEMA W AIR CONTRASTon [...] lesions or stricture formations. Other findings as above.[facility] [place] [place] EXAMINATION: DOUBLE CONTRAST BARIUM ENEMA 01/21/2020 [...] needs MRDD patient. Long-term laxative administration. FINDINGS: Under Water Assistant image demonstrates no acute abnormality. A double-contrast [...] later films is noted, demonstrating no gross abnormality.[facility]- [place], [place], Mhhailey Incoming Radiant Results From [employer] - 01/21/2020 5:40 PM EDT EXAMINATION: DOUBLE [...] needs MRDD patient. Long-term laxative administration. FINDINGS: Under Water Assistant image demonstrates no acute abnormality. A double-contrast [...] or stricture formations. Other findings as above. [facility], ShopettiCOLONOSCOPY PROCEDUREon 13-99-4899Ws dictationLake County [facility], ShopettiCovid-19 Ambulatoryon 28-05-7777FWHB-CoV-2, NAANot DetectedNot Detected [facility], MDComharshad on above:(NOTE) This test was developed and its performance characteristics determined by [employer]. This test has not been FDA cleared [...] detected) result in this assay. Performed At: [facility] [address] [facility] [place] [id number] Simona Wilkinson MD Ph:[phone] COVID-19 PCRon 57-30-2791YHAL-CoV-2, NAANot DetectedNormalNot DetectedThe Access Hospital DaytonComment on above:Result Comment: This test was developed and its performance characteristics determined by [employer]. This test has not been FDA cleared [...] in this assay.Performed By: #### CVDPCR #### [facility] [address] [place] [address] KarenComprehensive Metabolic PanelOrdered By: Renaldo Elkins on 15-25-3347Hpvmwan [Mass/Vol]4.2 g/dL3.5 - 5.2 g/dLChillicothe Va Medical Center [employer] Phone: albumin/Globulin [Mass ratio]1.6 {ratio}[employer] Phone: aLP [Catalytic activity/Vol]148 U/LHigh40 - 129 U/L [employer] Phone: aLT [Catalytic activity/Vol]21 U/L5 - 41 U/LMBigvest Phone: anion gap [Moles/Vol]14 mmol/L9 - 17 mmol/LM[employer] Work Phone: aST [Catalytic activity/Vol]25 U/L<40[facility] [employer] Phone: bilirubin [Mass/Vol]0.28 mg/dLLow0.3 - 1.2 mg/dLChillicothe Va Medical Center [employer] Phone: bun/Cre Djyrt20NuwyGseob [employer] Phone: calcium [Mass/Vol]9.1 mg/dL8.6 - 10.4 mg/dLChillicothe Va Medical Center [employer] Phone: chloride [Moles/Vol]102 mmol/L98 - 107 mmol/LMsouthern ohio medical centery [employer] Work Phone: cO2 [Moles/Vol]22 mmol/L20 - 31 mmol/LMsouthern ohio medical centery [employer] Phone: creatinine [Mass/Vol]0.54 mg/dLLow0.7 - 1.2 mg/dLChillicothe Va Medical Center [employer] Phone: GFR >60>60 mL/minChillicothe Va Medical Center [employer] Phone: GFR CommentThe [facility] Phone: comment on above:Average GFR for 60-69 years old: 85 mL/min/1.73sq m Chronic Kidney Disease: <60 mL/min/1.73sq m Kidney failure: <15 mL/min/1.73sq m eGFR calculated using average adult body mass. Additional eGFR calculator available at: http://www.[employer].Dispop/multiple_crcl_2012.htm GFR Non->60>60 mL/minChillicothe Va Medical Center [employer] Phone: GFR StagingThe [facility] SystemB[facility] Phone: comment on above:Stage 1: Some kidney damage normal GFR Stage 2: Mild kidney damage GFR 60-89 Stage 3: Moderate kidney damage GFR 30-59 Stage 4: Severe kidney damage GFR 15-29 Stage 5: Severe kidney damage GFR <15 ESRD - chronic treatment by dialysis or transplant Glucose [Mass/Vol]91 mg/dL70 - 99 mg/dLThe [facility] SystemB[facility] Phone: Interpretation and review of laboratory results AbnormalThe [facility] SystemCallApp Work Phone: potassium [Moles/Vol]4.2 mmol/L3.7 - 5.3 mmol/LMercy [employer] Work Phone: protein [Mass/Vol]6.9 g/dL6.4 - 8.3 g/dLThe [facility] SystemCallApp Work Phone: sodium [Moles/Vol]138 mmol/L135 - 144 mmol/LMercy [employer] Work Phone: Urea nitrogen [Mass/Vol]15 mg/dL8 - 23 mg/dLThe [facility] SystemCallApp Work Phone: TSH without ReflexOrdered By: Renaldo Elkins on 15-20-2545XRW Qn1.71 m[IU]/LMsouthern ohio medical centerLectus [employer]rapeutics Work Phone: cBC Auto DifferentialOrdered By: Renaldo Elkins on 83-18-6179Jsugsjqt Eos #<0.03The [facility] Phone: absolute Immature Granulocyte<0.03The [facility] Phone: absolute Lymph #1.10The [facility] Phone: absolute Glenn #0.60The [facility] Phone: basophils (Bld) [#/Vol]0.03 10*3/uLMerBunch Phone: basophils/100 WBC (Bld)1 %0 - 2 %[employer] Phone: differential TypeNOT REPORTEDThe [facility] SystemB[facility] Phone: eosinophils/100 WBC (Bld)0 %Low1 - 4 %[employer] Phone: erythrocyte distribution width (RBC) [Ratio]13.4 %11.8 - 14.4 %[employer] Phone: Hematocrit (Bld) [Volume fraction]42.9 %40.7 - 50.3 % [facility] [employer] Phone: Hemoglobin (Bld) [Mass/Vol]14.0 g/dL13 - 17 g/dLThe [facility] SystemB[facility] Phone: Immature granulocytes/100 WBC (Bld)0 %0The [facility] Phone: Interpretation and review of laboratory results AbnormalThe [facility] SystemB[facility] Phone: lymphocytes/100 WBC (Bld)21 %Low24 - 43 %[facility] Phone: MCH (RBC) [Entitic mass]29.1 pg25.2 - 33.5 pgThe [facility] SystemB[facility] Phone: MCHC (RBC) [Mass/Vol]32.6 g/dL28.4 - 34.8 g/dLThe [facility] SystemB[facility] Phone: MCV (RBC) [Entitic vol]89.2 fL82.6 - 102.9 fLThe [facility] SystemB[facility] Phone: Monocytes/100 WBC (Bld)11 %3 - 12 %[facility] Phone: NRBC Automated0.00.0 per 100 WBCThe [facility] SystemB[facility] Phone: platelet EstimateNOT REPORTEDThe [facility] SystemB[facility] Phone: platelet mean volume (Bld) [Entitic vol]11.1 fL8.1 - 13.5 fLThe [facility] SystemB[facility] Phone: Platelets (Bld) [#/Vol]142 10*3/uLThe [facility] SystemB[facility] Phone: RBC (Bld) [#/Vol]4.81 10*6/uL4.21 - 5.77 m/uLThe [facility] SystemB[facility] Phone: rBC morphology finding Nom (Bld)NOT REPORTEDMerCallApp Work Phone: segmented neutrophils/100 WBC (Bld)67 %High36 - 65 % [facility] [employer] Work Phone: segs Absolute3.60[facility] [employer] Phone: WBC (Bld) [#/Vol]5.4 10*3/uLChillicothe Va Medical Center [employer] Work Phone: WBC MorphologyNOT REPORTEDThe [facility] SystemB[facility] Phone: Glucose, randomOrdered By: Renaldo Elkins on 10-11-1709Jidlnzi [Mass/Vol]94 mg/dL70 - 99 mg/dLThe [facility] SystemB[facility] Phone: lipid PanelOrdered By: Renaldo Elkins on 25-28-5736Kdnfaxgxfbs [Mass/Vol]121 mg/dL<200The [facility] Phone: comment on above: Cholesterol Guidelines: <200 Desirable 200-240 Borderline >240 Undesirable Cholesterol in HDL [Mass/Vol]46 mg/dL>40[facility] [employer] Phone: comment on above: HDL Guidelines: <40 Undesirable 40-59 Borderline >59 Desirable Cholesterol in LDL [Mass/Vol]67 mg/dL0 - 130 mg/dLThe [facility] SystemB[facility] Phone: comment on above: LDL Guidelines: <100 Desirable 100-129 Near to/above Desirable 130-159 Borderline >159 Undesirable Direct (measured) LDL and calculated LDL are not interchangeable tests. Cholesterol.total/Cholesterol in HDL [Mass ratio]2.6 {ratio}<5MerBunch Phone: Triglyceride [Mass/Vol]41 mg/dL<150The [facility] Phone: comment on above: Triglyceride Guidelines: <150 Desirable 150-199 Borderline 200-499 High >499 Very high Based on AHA Guidelines for fasting triglyceride, March 2012. VLDLNOT REPORTED1 - 30 mg/dLThe [facility] SystemB[facility] Phone: Uric AcidOrdered By: Renaldo Elkins on 11-80-3158Pthgqncglubgwh and review of laboratory resultsAbnormalChillicothe Va Medical Center [employer] Work Phone: Urate [Mass/Vol]3.2 mg/dLLow3.4 - 7 mg/dLMercy Health Allen Hospital Work Phone: Vital Signs Date TimeVital SignValuePerforming DzbtnlmmfUtqiqphs36-66-1601 09:10-0400Body ifthpjdoevj26.81 [degF]Drew Rodriguez DDS Work Phone: 1(327) [phone]uUoroxy95-74-1970 09:10-0400Body kfzuvw09.02 kg Drew Rodriguez DDS Work Phone: 1(879) [phone]wKsllde66-41-6370 09:10-0400Diastolic blood qlfszova49 mm[Hg]Drew Rodriguez [facility] Work Phone: 1(539) [phone]eXhzqtx96-40-3239 09:10-0400Heart rate67 /minLaith Michael DDS Work Phone: 1(286) [phone]rTbmgky83-68-3458 09:10-0400Respiratory rate16 /minLaith Michael DDS Work Phone: 1(407) [phone]bYmzmcn28-62-8763 09:10-8932OiK9% (BldA) [Mass fraction]97 %Drew Rodriguez DDS Work Phone: 1(161) [phone]bDssold43-25-5626 09:10-0400Systolic blood mm[Hg]Drew Rodriguez DDS Work Phone: 1(950) [phone]uZtscog08-17-9512 15:38-0400Heart rate83 /minPse JobiziwcybQqsfxUbvipy46-80-0211 11:36-0400Body mrcycviwkju37.49 [degF]Pse ZxqltaddfoZvzjpGysube01-00-2806 11:36-0400Diastolic blood zjtrlfje13 mm[Hg]Pse EigxuhjhauLtlswSvnqnz73-69-1390 11:36-0400Heart rate85 /minPse Anesthesia UlytbVqrszr06-28-3904 11:36-4879CdA1% (BldA) [Mass fraction]97 %[facility] Anesthesia ZvmlzWrrvht81-83-2046 11:36-0400Systolic blood pzoviefw287 mm[Hg][facility] Anesthesia OwlybRupavv90-86-4471 17:30-0400BP Uvljruaqy86 mm[Hg][place], [place]07-31-2020 17:30-0400BP Tqtxzntz326 mm[Hg][facility], UJ76-94-6239 17:30-0400Pulse (Heart Rate)62 /[place]BePot[place], [place]07-[place] 17:30-0400Pulse Gqcfyjau35 %[place] 01-01-2020 17:30-0400Respiratory Rate16 /minBePot[place], [place] 01-01-2020 17:05-0400Body Wgbmzggzfzp02.8 [degF][place], [place]07-31-2020 10:45-0400BMI (Body Mass Index)33.14 kg/d2VubxiiaWayne Hospital, IX33-93-4907 10:45-0400Body raiezv84.5 kgVi[place], [place]07-31-2020 10:45-5065Kwbzdd559.4 cmWayne Hospital, MD Encounters Encounter DateEncounter TypeCare ProviderFacilityStart: 04-06-2025 End: 49-62-6432quyuiscsycUIKDJC S ST [facility] HOSPITALONProMedica Roseglen HospitalStart: 04-03-2025 End: 31-69-7627Qmurqoiqs department patient visitJOSEPH S YTONProMedica Huntsville HospitalStart: 02-18-2025 End: 18-75-4053idgglpeflkYYAAH [facility] HospitalStart: 02-18-2025 End: 67-89-2873Btpuftooow hospital visit by physicianFl[facility] Medical Center Cardiac MonitorUniversity Hospitals [facility] Non-Invasive CardiologyComment on above:Abnormal EKG; Abnormal electrocardiographyStart: 11-06-2024 End: 66-27-8616kjgdphqiqiEUDQW L KRUGERMercy Columbia HospitalStart: 11-06-2024 End: 59-47-1204Lozlskdktd hospital visit by Austin Castro APRN - HOSPITAL ADMITTING CLERK Work Phone: [facility] LABStart: 10-08-2024 End: 70-78-3766Bxtlznl encounter procedureVicsouthwestern vermont medical centermarleni Duggannez DDS Work Phone: [facility] DentistryComment on above:Arrived Start: 18-74-5104mnqxslaponPTMMNGHI AMARILIS SAMSONFacility:METROHealthStart: 06-18-2024 End: 34-45-0031plhsoeabhwBDSOE L KRUGERMercy Columbia HospitalStart: 06-18-2024 End: 34-46-2240Ajtatjeznv hospital visit by Austin Castro APRN - HOSPITAL ADMITTING CLERK Work Phone: mthz LaboratoryStart: 06-17-2024 End: 40-81-2951iqohwrkwuoBFBTK L KRUGERMercy Columbia HospitalStart: 06-17-2024 End: 93-44-2110Bowahrjytt hospital visit by Austin Castro APRN - HOSPITAL ADMITTING CLERK Work Phone: mthz LaboratoryStart: 05-29-2024 End: 89-47-5168uhxsfcvjplHYFFL L KRUGERMercy Columbia HospitalStart: 05-29-2024 End: 80-62-8709Uzftnjhlxy hospital visit by Austin Castro APRN - HOSPITAL ADMITTING CLERK Work Phone: mthz LaboratoryStart: 05-07-2024 End: 95-27-1035iphpkijtwwSAQRY L KRUGERMercy Columbia HospitalStart: 05-07-2024 End: 18-70-4372Fjbqokvxse hospital visit by Austin Castro APRN - HOSPITAL ADMITTING CLERK Work Phone: mthz LaboratoryStart: 07-15-2023 End: 67-71-0318Qtqnspnofw hospital visit by Stanton Parry MD Work Phone: [facility] Non-Invasive CardiologyComment on above:Primary hypertension; Frequent PVCsStart: 03-25-2023 End: 72-59-8740Xzlrjbmllz hospital visit by Terrie Rodriguez DDS Work Phone: [employer] [place] Ambulatory SurgeryComment on above: RefillStart: 03-25-2023 End: 57-86-5908Gycmkox encounter procedureDrew Rodriguez DDS Work Phone: [employer] DentistryStart: 03-14-5908Fvtcmfhzq encounterPaindia Wen RNMetroHealth Pre Surgical EvaluationComment on above: Pre-surgical Evaluation (DD adult dental restorations 03/25 under [place] at [place]. PSE completed - consents obtained. PSE RN spoke to [place], confirmed O, [place] address, and 0900 arrival time. /)Start: 46-59-4264Qcrzfegft encounterLaxmi Maloney RNMetroHealth Pre Surgical EvaluationComment on above:Pre-surgical Evaluation (Informed Consent & Anesthesia consent obtained)Start: 03-15-2023 End: 02-06-6125Kybivjm encounter procedurePse AnesthesiaMetroHealth Pre Surgical EvaluationComment on above:Pre-op examination (Primary Dx)Pre-op examination (Primary Dx); Ventricular premature depolarizationStart: 03-15-2023 End: 18-09-7631Yoccmvxsbccdr examination donePse AnesthesiaMetroHealth Work Phone: start: 16-65-0255Tjfpdhgiv encounterAdedjb Brittany DDS Work Phone: [employer] [facility] DentistryComment on above:APPOINTMENT SCHEDULINGStart: 60-08-0847Edetmktnh to same day surgery centerMarnie Ellison DDS Work Phone: [employer] Oral SurgeryStart: 01-07-2023 End: 75-53-4490Jivditx encounter procedureAdedfelixo Brittany DDS Work Phone: [facility] DentistryStart: 11-21-2022 End: 63-36-5930Rhijifttce hospital visit by Austin Castro GEOPHYSICS PROFESSOR - HOSPITAL ADMITTING CLERK Work Phone: mtHZ LaboratoryStart: 06-27-2022 End: 48-61-5021Lowactorzm hospital visit by Austin Castro GEOPHYSICS PROFESSOR - HOSPITAL ADMITTING CLERK Work Phone: mthz LaboratoryStart: 11-15-2021 End: 93-64-9003Pcoduvnehi hospital visit by Austin Castro GEOPHYSICS PROFESSOR - HOSPITAL ADMITTING CLERK Work Phone: mthz LaboratoryStart: 06-14-2021 End: 36-03-3508Ctrrbwmlmz hospital visit by Austin Castro GEOPHYSICS PROFESSOR - HOSPITAL ADMITTING CLERK Work Phone: mthz LaboratoryStart: 01-03-2021 End: 30-85-8620Sllapujpzb hospital visit by Austin Castro GEOPHYSICS PROFESSOR - HOSPITAL ADMITTING CLERK Work Phone: mthz EKGStart: 11-02-2020 End: 65-06-6616Nmmllkdlie hospital visit by Austin Castro GEOPHYSICS PROFESSOR - HOSPITAL ADMITTING CLERK Work Phone: mthz LaboratoryStart: 05-12-2020 End: 68-54-0569Mrvtxbagnf hospital visit by Viri Myers LaboratoryStart: 01-21-2020 End: 65-22-8618Rjfmajiftd hospital visit by physicianK[facility] RadiologyComment on above:Family history of colon cancer in father; Redundant colonStart: 01-15-2020 End: 27-25-2228Rchndnbnoi hospital visit by physicianCl[facility] Covid Screening ScheduleMONTEFIORE NEW [facility] Covid ScreeningComment on above:Preop testingStart: 01-01-2020 End: 16-27-8816Qbarftdzhz hospital visit by Myles Parker Work Phone: mthz ORStart: 12-28-2019 End: 19-45-3182Yjtdnwrknq hospital visit by physicianFlushing Hospital Medical Center Beena19 Pat Screening ScheduleMTHZ PRE ADMITStart: 12-17-2019 End: 33-21-8455Wnhvgka encounter procedureMARLENE ELKINSFacility:L5Mptbo: 06-17-2019 End: 78-82-0216Puewpyviqm hospital visit by Viri Elkins MD Work Phone: mthz LaboratoryStart: 05-28-2019 End: 10-74-9625Shinzsqrry hospital visit by physicianRenaldo Elkins MD Work Phone: mthz LaboratoryStart: 05-28-2016 End: 35-76-7537EybjoinftqQPWFLDJKPMV SANFORDFacility:[facility] Procedures DateProcedureProcedure DetailPerforming ClinicianStart: 38-82-8884Xwtnbvh quantitative blood xcpt reagent stripTammy L Errol GEOPHYSICS PROFESSOR Work Phone: Start: 10-94-5239Hohyv panelTammy L Errol GEOPHYSICS PROFESSOR Work Phone: Start: 50-30-3200Nwhxpotjahomn metabolic panelTammy L Errol GEOPHYSICS PROFESSOR Work Phone: Start: 77-73-0499Xkrtefh quantitative blood xcpt reagent stripTammy L Errol GEOPHYSICS PROFESSOR Work Phone: Start: 07-03-6678Aqygj panelTammy L Errol GEOPHYSICS PROFESSOR Work Phone: Start: 03-15-2023 End: 29-70-8343Fqtrh count complete automatedKirsten Ponsart DO Work Phone: start: 89-85-1160Zgs routine ecg w/least 12 lds trcg only w/o i&rKirsten Ponsart DO Work Phone: start: 09-34-6328Fcbdwpl quantitative blood xcpt reagent stripTammy L Errol GEOPHYSICS PROFESSOR Work Phone: Start: 24-80-0391Qqbby panelTammy L Errol GEOPHYSICS PROFESSOR Work Phone: Start: 53-42-7753ZML screeningJokamar Lottie GEOPHYSICS PROFESSOR - [facility] Work Phone: Comment on above:The Yakelin ECLIA assay is used. Results obtained with different assay methods cannot be used interchangeably. Start: 33-90-7688Uxxriirutnevq metabolic panelTasunil Miranda GEOPHYSICS PROFESSOR Work Phone: Start: 87-74-4607Ujoxrjz quantitative blood xcpt reagent stripShi Metz MD Work Phone: Start: 94-53-4749Grpay panelShi Metz MD Work Phone: Start: 06-14-2021 End: 53-28-9082Gsgagtptwpyoo metabolic panelShi Metz MD Work Phone: Comment on above:The Yakelin ECLIA assay is used. Results obtained with different assay methods cannot be used interchangeably. Start: 00-70-8106Igd routine ecg w/least 12 lds w/i&rJoshbranden Sharma Lottie GEOPHYSICS PROFESSOR - [facility] Work Phone: Start: 26-44-5065Dxvhlfb quantitative blood xcpt reagent stripShi Metz MD Work Phone: Start: 72-21-2263Xzphs Rosa Metz MD Work Phone: Start: 26-75-3195Xkeqo colon w/spec hi dns barium w/wo glucagonBettina I Nazemi Work Phone: Start: 01-01-2020 End: 13-73-9280WdufibxoxkwXimtkaa I Nazemi Work Phone: Start: 89-47-0534VYLYG-19 AMBULATORYLuis E Alvarez Work Phone: Start: 78-52-1093JGO Riya Elkins MD Work Phone: comment on above:The Yakelin ECLIA assay is used. Results obtained with different assay methods cannot be used interchangeably. Start: 28-66-9018Prebaaszjjenu metabolic panelRenaldo Elkins MD Work Phone: start: 65-66-8826Qyoccvo quantitative blood xcpt reagent stripRenaldo Elkins MD Work Phone: start: 44-53-7639Smftm panelRenaldo Elkins MD Work Phone: Plan of Treatment DateCare ActivityDetailAuthorStart: 10-79-2709BAI vaccine (adult) (1 - 1-dose 75+ series)RSV vaccine (adult) (1 - 1-dose 75+ series)MetroHealthStart: 94-45-1839Ksthsnisc for malignant neoplasm of colonMercy Health Allen HospitalStart: 05-29-2029 Lipid panelCholesterolMetroHealthStart: 88-96-8638Sjtle panelCholesterol MetroHealthStart: 03-01-2026 End: 84-73-6002Wsxudmu encounter aknbrqelj83/29/2026 11:00 AM EDT Office Visit [facility] CARD[facility] Part of [address] [address] Eduard Parry MD [address] [place] [address] 1 [facility] Part [facility] HospitalComment on above:1 yrStart: 69-87-1208Ulsua panelLipidsBon Secours [facility] HospitalStart: 08-30-2025 End: 41-13-4938Mzrwlrr encounter fusyoxmum23/30/2026 10:30 AM EDT Office Visit [facility] UR[facility] Part of [facility] [address] [place] [phone] Devendra Smith, PAAlirioC [address] [place] [address] 1Y psa/pvrMERCY HEALTH KINGS [facility]ILLS [facility] UROLOG[facility] Part [facility]ford HospitalComment on above:1Y psa/pvrStart: 53-02-7233Dnpjj panelLipidsBon [facility]: 46-99-3814Fntemwzk screenDiabetes screenDickenson Community Hospital: 02-18-2025 End: 02-11-7684Ootpqkv encounter xrgoucjhm88/18/2025 10:00 AM EDT Office Visit [facility] Part of [address] [place] [address] Eduard Parry MD [address] [place] [address] 1 yrMER[facility] Part [facility] HospitalComment on above:1 yrStart: 08-65-3631EDHGP-19 Vaccine ( season)COVID-19 Vaccine ( season)Bon [facility]art: 18-07-1362Vldeueqgf vaccinationBon [facility]: 25-58-4837Fcpki panelLipidsDickenson Community Hospital: 08-31-2024 End: 85-07-5639Kybuaie encounter otdajfsqp38/31/2025 11:30 AM EDT Office Visit [facility] Part of [address] [place] [address] Lian Medley, GEOPHYSICS PROFESSOR - HOSPITAL ADMITTING CLERK [address] [place] [address] 1yr PSAMERCY [facility] UROLOGY [facility] HospitalComment on above:1yr PSAStart: 63-34-5672Tqdas panelLipidsBON WEXNER MEDICAL CENTERStart: 02-02-2024 COVID-19 Vaccine ( season)COVID-19 Vaccine ( season)Bon [facility] HospitalStart: 34-37-7676SSOYJ-19 Vaccine ( season)COVID- 19 Vaccine ( season)MetroHealthStart: 98-64-6040Egbkxtsvl vaccination Flu vaccine (#1)Bon [facility] HospitalStart: 08-09-2023 End: 20-08-6813Wvjtnel encounter procedureMERCY [facility]ALTH [facility] UROLOGY [facility] HospitalComment on above:1 year f/u, PSA/BMP priorStart: 07-26-2023 End: 29-30-3604Twvgivg encounter lecuirgjc65/23/2024 1:40 PM EST Office Visit [facility] [address] [phone] Eduard Parry MD [address] [place] [phone] 4 weekMER[facility]ARDIOLOG[facility]port HospitalComment on above:4 weekStart: 07-24-2023 End: 54-88-7349Xugpuvx encounter yzjfieivw42/21/2024 9:30 AM EST Appointment [facility] Non-Invasive Cardiology [address] [place] [address] [phone] Eduard Parry MD [address] [place] [phone] EPIC KELLY W [facility] Non-Invasive CardiologyComment on above:EPIC KELLY W [facility]Start: 04-29-2023 Annual Wellness Visit (Medicare)Annual Wellness Visit (Medicare)[facility]ITALStart: 88-08-6936Hlzke panelLipidsBON WEXNER MEDICAL CENTERStart: 03-25-2023 End: 60-06-9671Tpnhkwuqs to same day surgery niprix3503/25/2023 11:22 AM EDT - 03/25/2023 1:18 PM EDT Surgery [facility] Ambulatory Surgery [address] [place] [address] Drew Rodriguze, DDS [address] [place] [address] DENTAL RESTORATIONS [facility] Ambulatory SurgeryComment on above:DENTAL RESTORATIONSStart: 03-25-2023 End: 61-70-1953Fvxreypmyj qohfpwxokauz88/23/2023 11:22 AM EDT Anesthesia Event [facility] Ambulatory Surgery [address] [place] [address] Mojgan Germain DO [address] [place] [address] [facility] Ambulatory SurgeryStart: 03-25-2023 End: 35-64-1380JSNGAV RESTORATIONSDENTAL RESTORATIONS Routine scheduled Caries 03/25/2023 11:22 AM EDTMetroHealthStart: 03-25-2023 End: 55-34-7789Pchbaoexh to same day surgery twsfzv5903/25/2023 9:26 AM EDT - 03/25/2023 11:22 AM EDT Surgery [facility] Ambulatory Surgery [address] [place] [address] Drew Rodriguez DDS [address] [place] [address] DENTAL RESTORATIONS [facility] Ambulatory SurgeryComment on above:DENTAL RESTORATIONSStart: 03-25-2023 End: 97-27-2541Czdlldiypz mrskalxkhvld98/23/2023 9:26 AM EDT Anesthesia Event [facility] Ambulatory Surgery [address] [place] [address] Mojgan Germain DO [address] [place] [address] ( Work) [facility] Ambulatory SurgeryStart: 03-25-2023 End: 04-58-2606MVQOWL RESTORATIONSMetroHealthStart: 06-67-8219Cnprdvtqws hospital visit by physicianUniversity Hospitals [facility] Ambulatory SurgeryStart: 03-25-2023 End: 45-89-2882Majyigz encounter bcuhtnhyh89/23/2023 9:00 AM EDT Procedure Visit [facility] Dentistry [address] [place] [address] Drew Rodriguez DDS [address] [place] [address] [facility] HospitalStart: 81-04-1087Sgwmizjkl vaccinationInfluenza Vaccine (#1)[facility] ClinicStart: 03-01-2023 End: 00-26-1316Rtvmayc encounter /29/2023 3:00 PM EDT Office Visit [facility] [address] [place] [address] Mitchell García MD [address] [place] [address] [facility] Start: 47-97-2879NTIFT-19 Vaccine ( season)COVID-19 Vaccine ( season)[facility] ClinicStart: 09-34-8981Orvawxewn vaccinationInfluenza Vaccine (#1)[facility] ClinicStart: 06-73-2695Jobtfregu vaccinationBON WEXNER MEDICAL CENTERStart: 08-08-2022 End: 80-76-1650Tjfgmev encounter procedureMER[facility] Part of [facility] Centertart: 82-66-1779Mdxmurzwmd A1c hlkuiewtlkoN9W test (Diabetic or Prediabetic)[facility]OSPITALStart: 77-08-4891Qylgjzpt specific antigen measurementProstate Specific Antigen (PSA) Screening or MonitoringMary Washington Hospitalart: 57-63-9215Iirzf [facility] HospitalStart: 69-65-0145Ijlauprqz vaccinationFlu vaccine (Season Ended)[facility]: 01-01-2022 Influenza vaccinationFlu vaccine (#1)[facility] Hospitalart: 11-02-2021 Lipid panelLipid screenChillicothe Va Medical Center [employer] Phone: start: 08-09-2021 End: 30-55-6784Alhwkwz encounter [facility] Part of [facility] Centertart: 51-63-7031Rqkwu panelLipid screenChillicothe Va Medical Center [employer] Work Phone: start: 38-60-7125AJKBW-19 Vaccine (4 - Booster for Pfizer series)COVID-19 Vaccine (4 - Booster for Pfizer series)[facility]ENTERStart: 75-26-2319Wyvszrotz vaccinationMercy Health Allen HospitalStart: 08-10-2020 End: 18-18-5268Kfjknb Visit08/10/2020 Office Visit Urology Arnoldo Coello MD [address] [place] [address], [address] [place] [phone] [facility] Part of [facility] Centertart: 2020 Pneumococcal 65+ years Vaccine (1 - PCV)Pneumococcal 65+ years Vaccine (1 - PCV) [facility]Start: 88-91-4319Xgyvmiuncrae 65+ years Vaccine (1 of 1 - PCV)Pneumococcal 65+ years Vaccine (1 of 1 - PCV)[facility] Start: 03-02-4429Ntedgjuqxkke 65+ years Vaccine (1 of 1 - PPSV23)Pneumococcal 65+ years Vaccine (1 of 1 - PPSV23)[facility] HospitalStart: 05-35-0486Wlimlvavitau vaccinationPneumococcal Vaccine(s) (65+ yrs) (1 - PCV)[facility]: 18-25-1139Pesum panelLipid PTC TherapeuticsUniversity Hospitals Ahu[facility]: 42-63-0620Yqqei screenLipid [facility] Work Phone: start: 98-03-9375Eylfvpqam vaccinationFlu vaccine (#1) [facility]: 01-21-2020 End: 34-61-1317Ygblmukpvuh19/20/2020 Appointment Radiology Radiologist, [facility] RadiologyStart: 46-32-8231Nhfavrcmu vaccinationFlu vaccine (#1)[facility] Work Phone: start: 11-62-9283Bmkyow Wellness Visit (AWV)Annual Wellness Visit (AWV)[facility] HospitalStart: 16-50-4472Xxpoamqlr B (HBV) Vaccine (optional start 60+ years)Hepatitis B (HBV) Vaccine (optional start 60+ years) [facility]: 80-68-0867Bwdbmcxvgfd Syncytial Virus (RSV) or age 60 yrs+ (1 - 1-dose 60+ series)Respiratory Syncytial Virus (RSV) or age 60 yrs+ (1 - 1-dose 60+ series)[facility]Start: 2015 Respiratory Syncytial Virus (RSV) or age 60 yrs+ (1 - Risk 60-74 years 1-dose series)Respiratory Syncytial Virus (RSV) or age 60 yrs+ (1 - Risk 60-74 years 1-dose series)[facility] CenterStart: 80-06-8324WZY vaccine (optional 60+ years)RSV vaccine (optional 60+ years)[facility]Start: 65-97-7577Wqpsm cancer screen colonoscopyCopromedica defiance regional hospital cancer screen colonoscopyMercy Health Allen Hospital Work Phone: start: 01-18-7864Ydzgpecxkspl 50+ years Vaccine (1 of 1 - PCV)Pneumococcal 50+ years Vaccine (1 of 1 - PCV)[facility] Start: 22-44-5570Hejkgwgyhblc vaccinationPneumococcal Vaccine(s) (50+ yrs) (1 of 1 - PCV)[facility]: 19-40-1109Isvuylgj (RZV) Vaccine (1 of 2)Shingles (RZV) Vaccine (1 of 2)[facility]: 92-30-1434Saazpvfh Vaccine (1 of 2) Shingles Vaccine (1 of 2)[facility] Allen HospitalStkila: 95-74-9654Qerewanxn for malignant neoplasm of colonBON [facility]: 48-45-4241Onvpxq wellness visit Annual Wellness Visit (G0438)[facility]: 97-99-5835VPkN/Tdap/Td vaccine (1 - Tdap)DTaP/Tdap/Td vaccine (1 - Tdap)[facility]: 89-18-4847Pmdxdxxxn A (HAV) Vaccine (optional start 19+ years)Hepatitis A (HAV) Vaccine (optional start 19+ years)[facility]: 03-25-5763Apmslalwr C screeningBON WEXNER MEDICAL CENTERStart: 91-46-2764Rkgbped + diphtheria + acellular pertussis vaccine (product)Tdap BoosterMetroHealthStart: 59-61-7309WXM screenHIV [facility] [employer] Work Phone: start: 59-01-2473NMR screeningHIV screenMercy Health Allen Hospital Start: 80-00-5951AZWCM-19 Vaccine (1)COVID-19 Vaccine (1)[facility] [employer] Phone: start: 27-04-1752Cjqtdkhiuf ScreenDepression Screen [facility] HospitalStart: 58-62-3094HPwZ/Tdap/Td vaccine (1 - Tdap)DTaP/Tdap/Td vaccine (1 - Tdap)[facility] [employer] Phone: start: 09-25-0298UBRJF-19 Vaccine (1)COVID-19 Vaccine (1)[facility] HospitalStart: 01-73-2512RRBWZ-19 Vaccine (#1)COVID-19 Vaccine (#1)[facility]ITALStart: 89-82-7525Xqphrx Wellness Visit (AWV)Annual Wellness Visit (AWV)[facility]ITALStart: 95-60-1644DKCNM-19 Vaccine (0506-5735 formulation)COVID-19 Vaccine ( formulation)[facility]Start: 1955 Hepatitis C screenHepatitis C [facility] [employer] Phone: start: 00-86-8433Ifqpghmwu C screeningHepatitis C [facility] HospitalStart: 62-45-7028Oxaabjwhc for malignant neoplasm of colon ColonoscopyMetroKettering [facility] panel - Blood by Automated countCOMPLETE BLOOD COUNT Lab Routine Pre-op examination 03/15/2023 12:39 PM EDTMetroHeal End: 92-30-9893HYIYZ-19 AmbulatoryCOVID-19 Ambulatory Lab Routine Preop testing 1 Occurrences starting 01/15/2020 until 01/15/2020[facility] on above:1 Occurrences starting 01/15/2020 until 01/15/2020COVID-19 Ambulatory COVID-19 Ambulatory Lab Routine Preop testing 01/15/2020 9:46 AM [facility], KYDENTAL RESTORATIONSDENTAL RESTORATIONS Routine scheduled Caries MetroHealthEc routine ecg w/least 12 lds trcg only w/o i&rEKG 12 LEAD - PERFORM MUSE Routine Pre-op examination Ordered: 03/15/2023[employer] Work Phone: commjng on above:Ordered: 03/15/2023 End: 17-35-1287Xmoinicr cardiac holter monitor (3 days - 15 days)[facility] UlympixMineral [facility] on above:1 Occurrences starting 02/18/2025 until 02/18/2025 End: 92-11-9413Ebitlwva cardiac holter monitor (48 hrs - 15 days)[facility] [employer] BiologicsMineral Area Regional Medical Center on above:1 Occurrences starting 07/15/2023 until 07/15/2023 Oxygen therapyInitiate Oxygen Therapy Protocol Respiratory Care Routine Daily until discontinued starting 01/01/2020[facility]castSOU[facility], KYComment on above:Daily until discontinued starting 01/01/2020 Immunizations Immunization DateImmunizationNotesCare XeesxlgqIcaodrcr67-69-4960Pwzros Monovalent (12+ yrs) SARS-COV-2 (COVID-19) vaccine, mRNA, spike protein, LNP, pres. free, 30mcg/0.3mL dose (WNQ=300)[facility] [employer] Work Phone: [phone]jIpaebl24-49-4040Athbuc Monovalent (12+ yrs) SARS-COV-2 (COVID-19) vaccine, mRNA, spike protein, LNP, pres. free, 30mcg/0.3mL dose (POD=470)[facility] [employer] Work Phone: [phone]eVnkkux63-29-8518Pawgkh Monovalent (12+ yrs) SARS-COV-2 (COVID-19) vaccine, mRNA, spike protein, LNP, pres. free, 30mcg/0.3mL dose (JQE=298)[facility] Brittany [employer] Work Phone: [facility] HospitalsLesConcierges Payers DatePayer CategoryPayerPolicy ID2018MedicaidMEDICAID [place] [id number] 2018-Present [phone] [address] [place] [id number] 2018Medicaid [place]ICAID [place] MEDICAID [facility] xxxxxxxxxxxx 2018-Present [phone] [address] [place] [address]iemvcggkmtbi [id number] --Stand AloneDENTAL- MEDICAID [id number] 2018Medicaid [id number] 2015MedicareMEDICARE MEDICARE PART A AND B [id number] 2014-Present [phone] [place], [place] [id number] 2015Medicare MEDICARE MEDICARE PART A AND B xxxxxxxxxxx 2014-Present [phone] [address] [place], [id number] 1992MedicareMEDICARE MEDICARE PART A & B [id number] 1991-Present [address] [place] [address] Medicare [id number] [id number] [id number] [id number] 1.2.840.185784.1.13.239.2.7.3.7[id number] 2.16.840.1.761634.3.57[id number] 2.16.840.1.919489.3.57[id number] 2.16.840.1.138194.3.57[id number] 2..840.1.695541.3.57[id number] 2..840.1.569040.3.57[id number] 2.16.840.1.189408.3.57[id number] 2..840.1.815514.3.57[id number] 2.16.840.1.804680.3.57[id number] 2..840.1.633590.3.57[id number] 2.16.840.1.942[id number] Social History DateTypeDetailFacilityStart: 01-01-2020 End: 02-92-1026Dbvbjho smoking status NHISNever smokerChillicothe Va Medical Center Tadcastart: 01-01-2020 End: 33-12-0399Kcgvubk use and exposureNever usedUniversity Hospitals Ahuja Medical Center: 01-01-2020 End: 47-65-2910Zjzmeea intakeCurrent non-drinker of alcohol (finding)[employer] Phone: start: 08-05-2019 End: 26-85-9978Mfycgfq SDOH Social Connections [address] [place] [address]: 65-61-4660Tbq Assigned At BirthNot on CloudHelixThe [facility] SystemCallApp Work Phone: exposure to SARS-CoV-2 (event)Not sureUniversity Hospitals Samar[facility] Center CameliaMediamind smoking status NHISTobacco smoking consumption unknownMetroHealth Start: 08-05-2019 End: 76-19-5065Askvgl identityNot on [facility] HospitalStart: 08-05-2019 End: 08-95-9567Zsthhbc of Social functionBOSTON HOME FOR INCURABLESAdWiredFrequency of Communication with Friends and FamilyNot on [facility] GlenbeighAdWiredStart: 07-13-2012 End: 16-76-0090EcxJkti (finding)MetroHealthAre you now , , , , never or living with a partner?Never marriedInova Fair Oaks HospitalOONi Clinical Notes 01-07-2023 to 02-18-2025 Note Date & UapxQvkqOrfucfcs67-48-7402 History of Present illness Narrative* Trina Michael - 02/18/2025 11:30 AM EDT Patient instructed on extended court monitor indications and use. Diary sent with patient. documented in this [facility] RawlinsOONi05-08-2025 History of Present illness Narrative* Oseas Lopez DDS - 10/08/2024 11:22 AM EDT ----- October at 1:22:42 PM ----- ----- Provider: Chaitanya Samson DDS -- Clinic[facility] ----- OR EVALUATION Patient presents for evaluation [...] time slot becomes available. Legal Guardian: [employer] Grace Sanders Next Visit: OR ----- Signed on October at 1:27:11 PM ----- ----- Provider: Chaitanya Samson DDS -- Clinic: [facility] ----- documented in this erpichwpoCmrwcEjmqha00-02-4915 Hospital Discharge instructions* Discharge Instructions* Emily Holcomb [...] done to speak with an oral surgeon. [facility] [phone]. HELPING THE HEALING PROCESS AND STOPPING THE [...] any questions or concerns please contact us: [facility] . Ask for the behavioral consultant carbonizer tester (after hours). hospice music therapist Clinic Hours: Mon-Fri 8:30 am to 4:30 [...] become very uncomfortable and can turinate, call [phone] or come to the emergency room. documented in this y[id number] Miscellaneous Notes* OP Note - Drew Rodriguez DDS - 03/25/2023 10:31 AM EDT Brief Operative Note PHE OR 3 Naldo Mack 67 year old male Surgical Contact Serial Number: [id number] Preoperative Diagnosis: Caries [K02.9] Anxiety (F41.9) Developmental delay(R62.50) Postoperative Diagnosis: Developmental delay(R62.50) Procedures: Full mouth x rays-81258 Exam-16492 Extraction-13220 Restorationism-40240 SRP-39831 Surgeon(s): Surgeon(s): Drew Rodriguez DDS Staff: Box Toe Cementer Nurse: Violet Tilley Anesthesia: General Anesthesiologist: Maria Esther Alvarado MD CONSULTANT TEACHER: Arnoldo Flood APRN-CONSULTANT TEACHER Anesthesia Student: Malorie Purvisurgical Case Number Data Unavailable Surgeon: Drew Sawant DDS Jailkeeper Surgeon: Gisselle Selby DDS Anesthesia: General- Nasal [...] included the following ; 7-MILF,8-MILFD, 9-MILF composite adventist. 14- MOL, 30- OML amalgam adventist. These restorations were placed following excavation of [...] were discussed with the patient and/or legal premium representative. The risks, benefits and alternatives were reviewed. Questions regarding blood transfusions were answered. The patient /or the patient s legal premium representative agree with the plan for transfusion of blood and/or blood components. Spoke to sister: Carlee De León (patient's guardian); agreeable to blood. * Brief Operative Note - Gisselle Mai DDS - 03/25/2023 9:26 AM EDT Brief Operative Note PHE OR 3 Naldo Mack 67 year old male Surgical Contact Serial Number: [id number] Preoperative Diagnosis: Caries [K02.9] Anxiety (F41.9) Developmental delay(R62.50) Postoperative Diagnosis: Developmental delay(R62.50) Procedures: Full mouth x rays-96446 Exam-94323 Extraction-08075 Restorationism-51196 SRP-04150 Surgeon(s): Surgeon(s): Drew Rodriguez DDS Staff: Box Toe Cementer Nurse: Violet Tilley Anesthesia: General Anesthesiologist: Maria Esther Alvarado MD CONSULTANT TEACHER: Arnoldo Flood APRN-CRNA Anesthesia Student: Anila Purvis [...] DDS 03/25/2023 9:59 AM documented in this ijruqyhprZvoidFgbumj26-33-5760 Surgery Surgical operation note* OP Note - Drew Rodriguez DDS - 03/25/2023 10:31 AM EDT Brief Operative Note PHE OR 3 Naldo Mack 67 year old male Surgical Contact Serial Number: [id number] Preoperative Diagnosis: Caries [K02.9] Anxiety (F41.9) Developmental delay(R62.50) Postoperative Diagnosis: Developmental delay(R62.50) Procedures: Full mouth x rays-88928 Exam-80376 Extraction-17405 Restorationism-15890 SRP-70368 Surgeon(s): Surgeon(s): Drew Rodrgiuez DDS Staff: Box Toe Cementer Nurse: Violet Tilley Anesthesia: General Anesthesiologist: Maria Esther Alvarado MD CONSULTANT TEACHER: Arnoldo Flood APRN-CRNA Anesthesia Student: Malorie Purvisurgical Case Number Data Unavailable Surgeon: Drew Sawant DDS Jailkeeper Surgeon: Gisselle Selby DDS Anesthesia: General- Nasal [...] included the following ; 7-MILF,8-MILFD, 9-MILF composite adventist. 14- MOL, 30- OML amalgam adventist. These restorations were placed following excavation of [...] procedure. Gisselle Selby DDS 03/25/2023 11:52 AM ItwseOpaldo36-27-5706 Progress note* Blood Attestation - Maria Esther Alvarado MD - 03/25/2023 9:48 AM EDT Blood Attestation: ATTESTATION OF INFORMED CONSENT FOR BLOOD: The transfusion of blood and/or blood components were discussed with the patient and/or legal premium representative. The risks, benefits and alternatives were reviewed. Questions regarding blood transfusions were answered. The patient /or the patient s legal premium representative agree with the plan for transfusion of blood and/or blood components. Spoke to sister: Carlee De León (patient's guardian); agreeable to blood. [employer] Work Phone: 1(694) 398-987510-23-2023 Surgery Postoperative evaluation and management note* Brief Operative Note - Gisselle Mai DDS - 03/25/2023 9:26 AM EDT Brief Operative Note PHE OR 3 Naldo Mack 67 year old male Surgical Contact Serial Number: [id number] Preoperative Diagnosis: Caries [K02.9] Anxiety (F41.9) Developmental delay(R62.50) Postoperative Diagnosis: Developmental delay(R62.50) Procedures: Full mouth x rays-72449 Exam-29365 Extraction-16724 Restorationism-72480 SRP-50919 Surgeon(s): Surgeon(s): Drew Rodriguez DDS Staff: Box Toe Cementer Nurse: Violet Tilley Anesthesia: General Anesthesiologist: Maria Esther Alvarado MD CONSULTANT TEACHER: Arnoldo Flood APRN-MARILY Anesthesia Student: Anila Purvis [...] by Gisselle Selby DDS 03/25/2023 9:59 AM [employer] Work Phone: 1(442) 472-598210-23-2023 History and physical note* Drew Rodriguez DDS [...] possible Drew Rodriguez DDS 03/25/2023 9:12 AM BorsyMaoebw53-57-8037 History and physical note* Drew Rodriguez DDS [...] DDS 03/25/2023 9:12 AM documented in this [id number] History of Present illness Narrative* Drew Rodriguez DDS - 03/25/2023 7:18 AM EDT ----- Saturday, March 25, 2023 at 11:46:41 AM ----- ----- Provider: [id number] - Drew Lopez DDS -- Clinic: [facility] ----- [place] notes, pt is ready [...] year old male Surgical Contact Serial Number: [id number] Preoperative Diagnosis: Caries [K02.9] Anxiety (F41.9) Developmental delay(R62.50) Postoperative Diagnosis: Developmental delay(R62.50) Procedures: Full mouth x rays-72955 Exam-39049 Extraction-95529 Restorationism-35360 SRP-71505 Surgeon(s): Surgeon(s): Drew Rodriguez DDS Staff: Box Toe Cementer Nurse: Violet Tilley Anesthesia: General Anesthesiologist: Maria Esther Alvarado MD CONSULTANT TEACHER: Arnoldo Flood APRN-CRNA Anesthesia Student: Malorie Purvisurgical Case Number Data Unavailable Surgeon: Drew Sawant DDS Jailkeeper Surgeon: Gisselle Selby DDS Anesthesia: General- Nasal [...] included the following ; 7-MILF,8-MILFD, 9-MILF composite adventist. 14- MOL, 30- OML amalgam adventist. These restorations were placed following excavation of [...] DDS 03/25/2023 11:52 AM documented in this n[id number] Telephone encounter Note* Telephone Encounter - Laxmi Maloney RN - 03/18/2023 1:41 PM EDT Informed Consent for dental surgery & Anesthesia consent obtained and scanned into Entellium. Scheduled for surgery 03/25/2023. LfthqSxeiwe06-11-9347 Miscellaneous Notes* Telephone Encounter - Laxmi Maloney RN - 03/18/2023 1:41 PM EDT Informed Consent for dental surgery & Anesthesia consent obtained and scanned into Entellium. Scheduled for surgery 03/25/2023. documented in this jlqooivtuYfnmfWyalis14-84-2053 Instructions* Patient Instructions* Mojgan Germain DO - [...] bleeding during the procedure. documented in this w[id number] Instructions* Patient Instructions* Mojgan Germain DO - [...] bleeding during the procedure. documented in this [id number] Evaluation note* PSE Appt H&P - Mojgan Germain DO - 03/15/2023 11:40 AM EDT Presurgical Evaluation (Pre-Admission Testing) Consultation Naldo Mack, [id number] 67 year old Male 03/15/2023 Consult placed [...] clinic for preoperative evaluation prior to dental adventist on 03/25/[address] Rodriguez. Patient denies [...] - referring and communicating with other health career services manager (when not separately reported) - documenting clinical [...] signature: Mojgan Germain DO 11:55 AM 03/15/2023 NozvcJnvmka94-76-1573 Miscellaneous Notes* PSE Appt H&P - Mojgan Germain DO - 03/15/2023 11:40 AM EDT Presurgical Evaluation (Pre-Admission Testing) Consultation Naldo Mack, [id number] 67 year old Male 03/15/2023 Consult placed to [facility] by Dr. Rodriguez due to significant PMH [...] clinic for preoperative evaluation prior to dental adventist on 03/25/[address] Rodriguez. Patient denies [...] - referring and communicating with other health career services manager (when not separately reported) - documenting clinical [...] in use for transport documented in this [id number] Miscellaneous Notes* PSE Appt H&P - Mojgan Germain DO - 03/15/2023 11:40 AM EDT Presurgical Evaluation (Pre-Admission Testing) Consultation Naldo Mack, [id number] 67 year old Male 03/15/2023 Consult placed [...] forHLD, GERD, developmental delay who presents to [facility] clinic for preoperative evaluation prior to dental adventist on 03/25/[address] Rodriguez. Patient denies [...] - referring and communicating with other health career services manager (when not separately reported) - documenting clinical [...] in use for transport documented in this [id number] Evaluation note* PSE Appt H&P - Rossana Ervin - 03/15/2023 11:36 AM EDT Patient was identified by name and date of . Rossana Ervin Patient at risk for falls:yes Falls Risk protocol implemented: Yes wheelchair in locked position when not in use for transport QykkaApppbo59-25-0215 Telephone encounter Note* Telephone Encounter - Nuvia [...] Grace can be reached by cell at [phone] Pt can be reached at Phone numbers Msg sent to OR 03/05/23 HcjuuIccsbn23-32-9936 Miscellaneous Notes* Telephone Encounter - Nuvia Lloyd [...] Grace can be reached by cell at [phone] Pt can be reached at Phone numbers Msg sent to OR 03/05/23 documented in this [id number] History of Present illness Narrative* Tj Soto DDS - 01/07/2023 10:49 AM EDT ----- Saturday, January 07, 2023 at 12:14:29 PM ----- ----- Provider: [id number] Maryann -- Clinic: [facility] ----- OR EVALUATION Patient presents for evaluation [...] slot becomes available. Legal Guardian: Giselle Schreiber; [phone] (Home), (mobile) Carlee Weiss; [phone] (home), (mobile) Next Visit: OR ----- Signed on Saturday, January 07, 2023 at 12:29:12 PM ----- ----- Provider: [id number] Ware DMD -- Clinic: [facility] ----- documented in this encounterMetroHealthEvaluation note* Diagnosis [...] Other premature beats documented in this encounter [facility]* Diagnosis Abnormal EKG Nonspecific abnormal electrocardiogram (ECG) (EKG) Abnormal electrocardiography documented in this encounter [facility] anesthesia Narrative* Procedure Name Responsible AnesthesiologistAnesthesia Start TimeAnesthesia Stop TimeDENTAL RESTORATIONS (Bilateral) Events No events on file. * Meds No medications on file. * Agents No agents on file. * Blood No blood administrations on file. Lines, Drains, and Airways No LDAs on file. documented in this encounter [facility] Narrative* Procedure NameResponsible AnesthesiologistAnesthesia Start TimeAnesthesia [...] holter monitor (3 days - 15 days) NM EXTERNAL ECG REC>48HR<7D REVIEW & INTERPRETATION NM EXTERNAL ECG REC>48HR<7D RECORDING NM EXTERNAL ECG REC>7D<15D RECORDING NM EXTERNAL ECG REC>7D<15D REVIEW & INTERPRETATION Keerthi Guzman, GEOPHYSICS PROFESSOR - HOSPITAL ADMITTING CLERK [address] [place] [address] Phone: tel: fax: Referral IDStatusReasonStart DateExpiration DateVisits RequestedVisits [id number] Required - RTA/ [facility] Summary Purpose Family History No [...] DirectiveACP-Power of AttorneyTypeDate RecordedPatient RepresentativeExplanationACP-Advance DirectiveACP-Power of Technician Helper Instrument Discharge Instructions * Instructions* Keesha Moore RN [...] Dr. Austin and Seymour CALIXTO. Patient and rehab care assistant updated, IV started and patient ready for [...] AIR CONTRAST Charleen Parker I, DO [address] [place] [address] [facility] Radiology [address] [place] [address] SpecialtyDiagnoses / ProceduresReferred By ContactReferred To ContactDentistry Diagnoses Caries Drew Rodriguez, DDS [address] [place] [address] Dentistry [address] [place] [address] Referral IDStatusReasonStart DateExpiration DateVisits RequestedVisits [id number]/28/20233/ Scheduling Instructions Please call the Dental Clinic at [facility] at to schedule an appointment if one was not made for you today. SpecialtyDiagnoses / ProceduresReferred By ContactReferred To Contact Diagnoses Primary hypertension Frequent PVCs Procedures Extended cardiac holter monitor (48 hrs - 15 days) NM EXTERNAL ECG REC>48HR<7D REVIEW & INTERPRETATION NM EXTERNAL ECG REC>48HR<7D RECORDING NM EXTERNAL ECG REC>7D<15D RECORDING NM EXTERNAL ECG REC>7D<15D REVIEW & INTERPRETATION Eduard Parry MD [address] [place] [address] [place] [address] Referral IDStatusReasonStart DateExpiration DateVisits RequestedVisits [id number] Review/ Additional Source Comments (unrecognized sect ion and content) No Status Records FoundNo Status Records FoundNo Status Records FoundNo Status Records FoundNo Status Records FoundNo Status Records Found INFORMATION SOURCE (unrecogn ized section and content) DATE CREATED AUTHOR 11/27/2017 [facility] DATE CREATED AUTHOR AUTHOR'S ORGANIZ ATION 03/14/2020 [facility] DATE CREATED AUTHOR AUTHOR'S ORGANIZ ATION 10/15/2024 [facility] [facility] DATE CREATED AUTHOR AUTHOR'S ORGANIZ ATION 02/21/2025 [facility] DATE CREATED AUTHOR AUTHOR'S ORGANIZ ATION 04/04/2025 [facility] DATE CREATED AUTHOR AUTHOR'S ORGANIZ ATION 04/07/2025 [facility] Reason for Visit (unrecogniz ed section and content) StatusReasonSpecialtyDiagnoses / ProceduresReferred By ContactReferred To Contact Diagnoses Colon cancer screening Family history of colon cancer SCREENING, FAMILY HX OF COLON CANCER Procedures NM COLORECTAL SCRN; HI RISK IND NM COLONOSCOPY FLX DX W/COLLJ SPEC WHEN PFRMD COLORECTAL CANCER SCREENING, HIGH RISK Charleen Parker I, DO [address] [place] [address] [address] [place] [address] [facility] StatusReasonSpecialtyDiagnoses / ProceduresReferred By ContactReferred To ContactClosedRadiology Diagnoses Family history of colon cancer in father Redundant colon Procedures FL BARIUM ENEMA W AIR CONTRAST Charleen Parker I DO [address] [place] [address] [address] [place] [address] [facility] [address] [place] [address] ReasonOnset DateCommentsAPPOINTMENT RSPSCACZZA40/03/2023ReasonOnset DateComments Pre-surgical Pgfhdqtgfg70/16/2023Informed Consent & Anesthesia consent obtained ReasonOnset DateCommentsPre-surgical Gtuxuusyqj11/18/2023D adult dental restorations 03/25 under [place] at [place]. PSE completed - consents obtained. PSE RN spoke to [place], confirmed NPO, [place] address, and 0900 arrival time.Specialty Diagnoses / ProceduresReferred By ContactReferred To ContactAmbulatory Surgery Diagnoses Caries Caries [[id number]] Procedures UNLISTED PROCEDURE, DENTOALVEOLAR STRUCTURES ANESTHESIA, INTRAORAL PROC, W/BX; NOS DENTAL RESTORATIONS Drew Rodriguez, DDS [address] [place] [address] [employer] [address] [place] [address] Phone: [phone] Referral IDStatusReasonStart DateExpiration DateVisits RequestedVisits [id number] XtsbDeploajeFmgnxl06/23/2023SpecialtyDiagnoses / ProceduresReferred By ContactReferred To Contact Diagnoses Primary hypertension Frequent PVCs Procedures Extended cardiac holter monitor (48 hrs - 15 days) NM EXTERNAL ECG REC>48HR<7D REVIEW & INTERPRETATION NM EXTERNAL ECG REC>48HR<7D RECORDING NM EXTERNAL ECG REC>7D<15D RECORDING NM EXTERNAL ECG REC>7D<15D REVIEW & INTERPRETATION Eduard Parry MD [address] [place] [address] Referral IDStatusReasonStart DateExpiration DateVisits RequestedVisits [id number] Review/ Care Teams (unrecognized sec tion and content) Team MemberRelationshipSpecialtyStart DateEnd Date Darío Castro, GEOPHYSICS PROFESSOR - HOSPITAL ADMITTING CLERK [address] [place] [address] PCP - GeneralInternal Medicine08/10/20Team MemberRelationshipSpecialtyStart Date End Date Darío Castro APRN - HOSPITAL ADMITTING CLERK [address] [place] [phone] PCP - GeneralInternal Medicine08/10/20am MemberRelationshipSpecialtyStart Date End Date Darío Castro GEOPHYSICS PROFESSOR - HOSPITAL ADMITTING CLERK [address] [place] [phone] PCP - GeneralInternal Medicine08/10/20am MemberRelationshipSpecialtyStart Date End Date Darío Castro APRN - HOSPITAL ADMITTING CLERK [address] [place] [phone] PCP - GeneralInternal Medicine08/10/20Team MemberRelationshipSpecialtyStart Date End Date Darío Castro GEOPHYSICS PROFESSOR - HOSPITAL ADMITTING CLERK [address] [place] [phone] PCP - GeneralInternal Medicine08/10/20am MemberRelationshipSpecialtyStart Date End Date Darío Castro APRN - HOSPITAL ADMITTING CLERK [address] [place] [phone] PCP - GeneralInternal Medicine08/10/20Team MemberRelationshipSpecialtyStart Date End Date Darío Castro GEOPHYSICS PROFESSOR - HOSPITAL ADMITTING CLERK [address] [place] [phone] PCP - GeneralInternal Medicine08/10/20Team MemberRelationshipSpecialtyStart Date End Date Darío Castro GEOPHYSICS PROFESSOR - HOSPITAL ADMITTING CLERK [address] [place] [address] PCP - GeneralInternal Medicine08/10/20Te MemberRelationshipSpecialtyStart Date End Date Darío Castro APRN - HOSPITAL ADMITTING CLERK [address] [place] [address] PCP - GeneralInternal Medicine08/10/20Te MemberRelationshipSpecialtyStart Date End Date Darío Castro, GEOPHYSICS PROFESSOR - HOSPITAL ADMITTING CLERK [address] [place] [address] PCP - GeneralInternal Medicine08/10/20 PRN Active and Recently Administ ered Medications (unrecognized section and content) Medication Order/// bacitracin 500 UNIT/GM ointment (CANCELED) PRN, Starting on Sat03/25/23 at 1031, Until Sat03/25/23 at 1206, Intra-op * 1031 (Given - Provider: Gisselle Selby DDS - Comment: Applied to lips at beginning and end of procedure) lidocaine-epinephrine (XYLOCAINE) 2 %-1:005617 injection (CANCELED) PRN, Starting on Sat03/25/23 at [...] BE BASED ON THE PRIMARY CLINICAL RECORDS. [facility]. provides no warranty or guarantee of the accuracy or completeness of information in this document.
--- OUTSIDE RECORDS SUMMARY | 2025-06-01 03:05 | XMS_ITS | Clinical Summary ---
Author Organization [facility] Address [address], [address] [place] [address] Care Team Providers Care Pollution Control Technician Name Role Phone Darío Tafoya APRN - ORTHOPEDIC DESIGNER Primary Care Provid er Allergies No known active allergies Medications MedicationSigDispense QuantityRefillsLast FilledStart DateEnd DateStatus aspirin 81 MG EC tablet Take 1 tablet by mouth dailyActive lamotrigine (LAMICTAL) 25 MG tablet Take 1 tablet by mouth 2 times daily 1 tablet daily and 1/2 tab at bedtimeActive lorazepam (ATIVAN) 0.5 MG tablet Take 1 tablet by mouth daily. Take 1 tablet every morning. Take 1/2 tab every evening.Active omeprazole (PRILOSEC) 20 MG capsule Take 1 capsule by mouth dailyActive lovastatin (MEVACOR) 20 MG tablet Take 1 tablet by mouth nightlyActive finasteride (PROSCAR) 5 MG tablet Take 1 tablet by mouth dailyActive tamsulosin (FLOMAX) 0.4 MG capsule Take 1 capsule by mouth 2 times dailyActive chlorhexidine (PERIDEX) 0.12 % solution 09/04/2011ctive loxapine (LOXITANE) 10 MG capsule Take 1 capsule by mouth 2 times dailyActive docusate (COLACE) 50 MG/5ML liquid Take 5 mLs by mouth as needed Use as ear drops to soften excessive cerumen then irrigate as needed for wax buildupActive magnesium hydroxide (MILK OF MAGNESIA) 400 MG/5ML suspension Take 30 mLs by mouth daily as neededActive aluminum & magnesium hydroxide-simethicone (MAALOX) 200-200-20 MG/5ML SUSP suspension Take 30 mLs by mouth daily as neededActive HYDROcodone-acetaminophen (NORCO) 5-325 MG per tablet Take 1 tablet by mouth every 6 hours as needed for Pain . 15 tablet 05/12/2016Active fluPHENAZine HCl (PROLIXIN) 5 MG tablet daily07/11/2019Active QUEtiapine (SEROQUEL) 25 MG tablet Take 1.5 tablets by mouth07/29/2019Active acetaminophen (TYLENOL) 325 MG tablet Take 2 tablets by mouth every 6 hours as needed for PainActive Carboxymethylcellulose Sodium (ARTIFICIAL TEARS OP) Apply to eye as neededActive ondansetron (ZOFRAN) 4 MG tablet Take 1 tablet by mouth every 8 hours as needed for Nausea or VomitingActive naproxen sodium (ANAPROX) 220 MG tablet Take 1 tablet by mouth 2 times daily (with meals)Active clotrimazole-betamethasone (LOTRISONE) 1-0.05 % cream Apply topically 2 times daily Apply topically 2 times daily.Active hydrocortisone 1 % cream Apply topically 2 times daily Apply topically 2 times daily.Active polyethylene glycol (GLYCOLAX) 17 GM/SCOOP powder Take 17 g by mouth dailyActive losartan (COZAAR) 50 MG tablet Take 1 tablet by mouth daily 90 tablet ctive metoprolol succinate (TOPROL XL) 50 MG extended release tablet Indications:Primary hypertension,Frequent PVCsTake 1 tablet by mouth daily 30 tablet ctive Baclofen (LIORESAL) 5 MG tablet Take 2 tablets by mouth 3 times dailyActive amLODIPine (NORVASC) 5 MG tablet Indications:Primary hypertensionTake 1 tablet by mouth daily 90 tablet 5Active Active Problems ProblemNoted DateDiagnosed DateIncomplete bladder tvcdwesm96/27/2019BPH with obstruction/lower urinary tract ddswukae72/28/2018Benign localized hyperplasia of prostate with urinary obstruction and other lower urinary tract symptoms (LUTS)(600.21)08/30/2014Urinary fcfluzvjoihn72/30/2012 Overview (08/31/2011): Patient first seen 03/27/05 for urinary incontinence. [...] bladder neck. Patient was seen in our wwbnqa15/4/11 and bladder scan showed residual urine 275 ml. Patient was started on Proscar and was to have follow up in six months. Patient has schizophrenia and mental retardation. Patient is not able to communicate. Encounters DateTypeDepartmentCare ItzuQaxbjmzjvpm97/11/2025 12:26 AM EST - 05/13/2025 11:59 PM ESTHospital Encounter [address] [address] Discharge Disposition: Home or Self Care04/19/2025Results Follow-Up [facility] Part of [address] [address] Lilliam Guzman APRN - CNP Qmqcbnm6204/05/2025Orders Only [facility] Part of [address] [address] Lilliam Guzman APRN - CNP Abnormal electrocardiography (Primary Dx)from Last 3 Months Family History Medical HistoryRelationNameCommentsColon CancerFatherRelationNameStatusComments Father Social History Tobacco UseTypesPacks/DayYears UsedDateSmoking Tobacco: NeverSmokeless Tobacco: Never Tobacco Cessation:Counseling Given: Not Answered Alcohol UseStandard Drinks/WeekCommentsNo0 (1 standard drink = 0.6 oz pure alcohol)Social Connection and Isolation PanelAnswerDate RecordedFrequency of Communication with Friends and FamilyNot on file08/05/2019Frequency of Social Gatherings with Friends and FamilyNot on file08/05/2019Attends Yazdanism ServicesNot on file08/05/2019Active Member of Clubs or OrganizationsNot on file 08/05/2019Attends Club or Organization MeetingsNot on file08/05/2019Marital StatusNever tbbckhj0408/05/2019Sex and Gender InformationValueDate RecordedSex Assigned at BirthNot on fileLegal BgbFssu6107/13/2012 3:33 PM ESTGender Identity Not on fileSexual OrientationNot on file Last Filed Vital Signs Vital SignReadingTime TakenCommentsBlood Mtwpmlks834/7809/ 10:29 AM EDT Pcpml8168/18/2025 10:29 AM VDFBtuzzfedklh22.1 ??C (96.9 ??F)08/31/2024 11:52 AM EDTRespiratory Jvol548602/18/2025 10:03 AM EDTOxygen Lauesivgoe58%02/18/2025 10:03 AM EDTInhaled Oxygen Concentration--Fenrnr20.1 kg (170 lb)02/18/2025 10:03 AM WMFWlknls705.4 cm (4' 6.5 )02/18/2025 10:03 AM EDTBody Mass Index40.24002/18/2025 10:03 AM EDT Plan of Treatment DateTypeDepartmentCare Team (Latest Contact Info)Kkipexefpjg03/30/2026 10:30 AM EDTOffice Visit [facility] Part of [facility] [address] [place] [address] Arnoldo Coello MD [address] [place] [phone] 1Y psa/pvr03/01/2026 11:00 AM EDTOffice Visit [facility] Part of [facility] [address] [place] [address] Eduard Parry MD [address] [place] [address] 1 yrHealth MaintenanceDue DateLast DoneCommentsDepression Rzckiv5507/16/1967 Hepatitis C jepsgp4107/16/1973DTaP/Tdap/Td vaccine (1 - Tdap)1974FIT/FOBT: Average risk2000Fecal-DNA (Cologuard): Average risk2000 Sigmoidoscopy/CT qlecqruhhqgm66/13/2001Pneumococcal 50+ years Vaccine (1 of 1 - PCV)2005Shingles vaccine (1 of 2)2005Respiratory Syncytial Virus (RSV) or age 60 yrs+ (1 - Risk 60-74 years 1-dose series)2015 Annual Wellness Visit (Medicare)04/29/2023Flu vaccine (#1)5COVID-19 Vaccine ( season)5107/25/2020, 06/28/2020, 1Diabetes hajycs275106/18/2021, 06/28/2021, 10/22/20189433Jlpybc98/11/878950/04/2025, 11/06/2024, 05/29/2024, Additional history yaittoTzapdwzdrcs53/31/2030 01/01/2020, 01/01/2020Colorectal Cancer Tphkzx4612/31/2029A1C test (Diabetic or Prediabetic)Awnjwesvawzr60/16/2022, 06/28/2021, 10/22/2018Prostate Specific Antigen (PSA) Screening or PyvwxnqhlcJwzmygnlsoje89/16/2025, 06/26/2023, 06/27/2022, Additional history existsHepatitis A vaccineAged OutNo longer eligible based on patient's age to complete this topicHepatitis B vaccineAged OutNo longer eligible based on patient's age to complete this topicHib vaccine Aged OutNo longer eligible based on patient's age to complete this topic Meningococcal (ACWY) vaccineAged OutNo longer eligible based on patient's age to complete this topicMeningococcal B vaccineAged OutNo longer eligible based on patient's age to complete this topicPolio vaccineAged OutNo longer eligible based on patient's age to complete this topic Procedures Procedure NamePriorityDate/TimeAssociated DiagnosisCommentsURIC ACIDRoutine 05/13/2025 7:20 AM EST LIPID KORKCAtvhcfq03/11/2025 7:20 AM EST GLUCOSE, JNVCQJCpxjpdx29/11/2025 7:20 AM EST CBC WITH AUTO YLOZCAOFHTPBUvyiopi81/11/2025 7:20 AM EST PSA ZWYJIJLWLSeaqqlc09/16/2025 7:25 AM EST HEMOGLOBIN R1PPfaxeqg29/16/2022 6:35 AM EST COLONOSCOPY ECNAMEJFGEcxudtz75/31/2020 10:37 AM EDT from Last 3 Months or Most Recently Relevant to Health Maintenance Results * (ABNORMAL) CBC with Auto Differential (05/13/2025 7:20 AM EST)ComponentValue Ref RangeTest MethodAnalysis TimePerformed AtPathologist SignatureWBC4.33.5 - 11.3 k/uL05/13/2025 7:20 AM [facility] LABRBC4.544.21 - 5.77 m/uL05/13/2025 7:20 AM [facility] URGManzsgjosf59.3 13.0 - 17.0 g/dL05/13/2025 7:20 AM [facility] LAB Mdmiiejmph55.1(L)40.7 - 50.3 %05/13/2025 7:20 AM [facility] SMNLRP56.382.6 - 102.9 fL05/13/2025 7:20 AM [facility] MUULJX94.325.2 - 33.5 pg05/13/2025 7:20 AM [facility] GZPKKOS61.228.4 - 34.8 g/dL05/13/2025 7:20 AM [facility] DNMIRS42.811.8 - 14.4 %05/13/2025 7:20 AM [facility] ZBGUzoalqerc161641 - 453 k/uL05/13/2025 7:20 AM [facility] QRVFCX38.78.1 - 13.5 fL05/13/2025 7:20 AM [facility] LABNRBC Automated0.00.0 per 100 WBC05/13/2025 7:20 AM [facility] LABNeutrophils %6036 - 65 %05/13/2025 7:20 AM [facility] LABLymphocytes %2824 - 43 %05/13/2025 7:20 AM [facility] LABMonocytes %113 - 12 %05/13/2025 7:20 AM [facility] LABEosinophils %0(L)1 - 4 %05/13/2025 7:20 AM [facility] LABBasophils %10 - 2 %05/13/2025 7:20 AM [facility] LABImmature Granulocytes %00 %05/13/2025 7:20 AM EST [facility] LABNeutrophils Absolute2.591.50 - 8.10 k/uL 05/13/2025 7:20 AM [facility] LABLymphocytes Absolute1.21 1.10 - 3.70 k/uL05/13/2025 7:20 AM [facility] LAB Monocytes Absolute0.460.10 - 1.20 k/uL05/13/2025 7:20 AM [facility] LABEosinophils Absolute<0.030.00 - 0.44 k/uL05/13/2025 7:20 AM [facility] LABBasophils Absolute0.040.00 - 0.20 k/uL 05/13/2025 7:20 AM [facility] LABImmature Granulocytes Absolute<0.030.00 - 0.30 k/uL05/13/2025 7:20 AM [facility] LABSpecimen (Source)Anatomical Location / LateralityCollection Method / VolumeCollection TimeReceived Time05/13/2025 7:20 AM EST05/13/2025 8:47 AM EST Narrative Authorizing ProviderResult TypeResult StatusTammdeirdre Miranda APRNHEMATOLOGY ORDERABLESFinal ResultPerforming OrganizationAddressCity/State/ZIP CodePhone Number [facility] [address] [phone] * Uric Acid (05/13/2025 7:20 AM EST)ComponentValueRef RangeTest MethodAnalysis TimePerformed AtPathologist SignatureUric Acid3.93.4 - 7.0 mg/dL05/13/2025 7:20 AM [facility] LABSpecimen (Source)Anatomical Location / LateralityCollection Method / VolumeCollection TimeReceived Time 05/13/2025 7:20 AM EST05/13/2025 8:47 AM EST Narrative Authorizing ProviderResult TypeResult StatusTammy L Ruben APRNCHEMISTRY ORDERABLESFinal ResultPerforming OrganizationAddressCity/State/ZIP CodePhone Number [facility] [address] [place] [address] * (ABNORMAL) Glucose, Random (05/13/2025 7:20 AM EST)ComponentValueRef RangeTest MethodAnalysis TimePerformed AtPathologist ExcbvoyuhNpgciuk163(H)74 - 99 mg/dL 05/13/2025 7:20 AM [facility] LABSpecimen (Source) Anatomical Location / LateralityCollection Method / VolumeCollection Time Received Time05/13/2025 7:20 AM EST05/13/2025 8:47 AM EST Narrative Authorizing ProviderResult TypeResult StatusTammy L Ruben APRNCHEMISTRY ORDERABLESFinal ResultPerforming OrganizationAddressCity/State/ZIP CodePhone Number [facility] [address] [place] [address], [facility] [phone] * (ABNORMAL) Lipid Panel (05/13/2025 7:20 AM EST)ComponentValueRef RangeTest MethodAnalysis TimePerformed AtPathologist SignatureCholesterol, Ephjm7545 - 199 mg/dL05/13/2025 7:20 AM ESTMERCY LABORATORIESComment: Cholesterol Guidelines: <200 Desirable 200-240 ??Borderline >240 Undesirable HDL36(L)>40 mg/dL05/13/2025 7:20 AM ESTMERCY LABORATORIESComment: HDL Guidelines: <40 Undesirable 40-59 ?Borderline >59 Desirable LDL Gqcqbtaxvpz321 - 100 mg/dL05/13/2025 7:20 AM ESTMERCY LABORATORIESComment: LDL Guidelines: <100 Desirable 100-129 ?? Near to/above Desirable 130-159 ?? Borderline >159 Undesirable Direct (measured) LDL and calculated LDL are not interchangeable tests. Chol/HDL Ratio3.3<5.012 7:20 AM ESTMERCY UGWOJKPGZPNFUpewubslddbnm27<150 mg/dL05/13/2025 7:20 AM ESTMERCY LABORATORIESComment: Triglyceride Guidelines: <150 Desirable 150-199 ??Borderline 200-499 ??High >499 Very high Based on AHA Guidelines for fasting triglyceride, March 2012. SCFZ688 - 30 mg/dL05/13/2025 7:20 AM ESTMERCY LABORATORIESSpecimen (Source) Anatomical Location / LateralityCollection Method / VolumeCollection Time Received Time05/13/2025 7:20 AM EST05/13/2025 8:47 AM EST Narrative Authorizing ProviderResult TypeResult StatusTammy L Ruben APRNCHEMISTRY ORDERABLESFinal ResultPerforming OrganizationAddressCity/State/ZIP CodePhone Number [facility] [address] [place] [address] [facility] [address] [place] [address] * PSA Screening (06/18/2024 7:25 AM EST)ComponentValueRef RangeTest Method Analysis TimePerformed AtPathologist SignaturePSA1.920.00 - 4.00 ng/mL 06/18/2024 7:25 AM ESTMERGFG Group LABORATORIESComment: The Yakelin ECLIA assay is used. ??Results obtained with different assay methods cannot be used interchangeably. Specimen (Source)Anatomical Location / LateralityCollection Method / Volume Collection TimeReceived Time06/18/2024 7:25 AM EST06/18/2024 8:20 AM EST Narrative Authorizing ProviderResult TypeResult StatusTammy L Ruben APRNCHEMISTRY ORDERABLESFinal ResultPerforming OrganizationAddressty/State/ZIP CodePhone Number [facility] [address] [place] [address] [facility] [address] [place] [address] * Hemoglobin A1C (04/18/2022 6:35 AM EST)ComponentValueRef RangeTest Method Analysis TimePerformed AtPathologist SignatureHemoglobin A1C5.44.0 - 6.0 % 04/18/2022 6:35 AM ESTMERCY LABORATORIESEstimated Avg Mejrsjo654mq/dL 04/18/2022 6:35 AM ESTMERCY LABORATORIESComment: The ADA and AACC recommend providing the estimated average glucose result to permit better patient understanding of their HBA1c result. Specimen (Source)Anatomical Location / LateralityCollection Method / Volume Collection TimeReceived Time04/18/2022 6:35 AM EST04/18/2022 8:09 AM EST Narrative Authorizing ProviderResult TypeResult StatusJaalecia Long Olivera MDCHEMISTRY ORDERABLESFinal ResultPerforming OrganizationAddressCity/State/ZIP CodePhone Number [facility] [address] [place] [address], [facility] [phone] [facility] [address] [place] [address], [facility] [phone] * Colonoscopy (01/01/2020 10:37 AM EDT)Specimen (Source)Anatomical Location / LateralityCollection Method / VolumeCollection TimeReceived Time Narrative Epic, User - 01/01/2020 10:37 AM EDT No dictation Authorizing ProviderResult TypeResult StatusBettina Nazemi I, DOENDOSCOPY ORDERABLESFinal Result from Last 3 Months or Most Recently Relevant to Health Maintenance Insurance [address] [place] [address] Care Teams Team MemberRelationshipSpecialtyStart DateEnd Date Darío Tafoya, BAR GAUGER AND LUBRICATOR TENDER - ORTHOPEDIC DESIGNER [address] [place] [address] PCP - GeneralInternal Medicine08/10/20
--- OUTSIDE RECORDS SUMMARY | 2025-06-01 03:05 | XMS_ITS | Clinical Summary ---
Author Organization [facility] Address [id number] [address] [place] [address] Care Team Providers Care Ferry Captain Name Role Phone Roland Mott Primary Care Provider [phone] Allergies No known active allergies Medications MedicationSigDispense [...] migh t be different from the original. [facility] Lipid and glucose every 6 mo CBC, CMP, TSH, UA, Uric acid, and PSA every 12 mo ProblemNoted DateDiagnosed DateClosed displaced comminuted fracture of shaft of right bwmberc70/31/2023Chronic dfulsnvsmqmv58/24/2022hronic musculoskeletal pain12/20/2020evere developmental delay08/30/20205459Hsqzzan90/30/2021Neurogenic ehzlqtm1408/30/2020Full code ijfnwx1008/25/2020epressive gytvxqko10/16/2021ehavior kjudnjyybpa77/16/3605Xynhmmbihkuhx23/16/2021Tardive cacawudzha52/16/2021hronic GERD08/16/2020Mixed auabobnyolhpfi44/16/9506Vheyyvofk84/16/2021enign prostatic hyperplasia with urinary pzkrbojwqvv11/30/2015 Resolved Problems ProblemNoted DateDiagnosed DateResolved DateHistory of wjnkpc5508/30/2020 10/24/2021History of left knee rclqvowjuiy22Hip dysplasia Urinary hphpvxgxd04pinal stenosis Multilevel degenerative disc hzucege81 Rqwxtayrhlgpzg28eborrheic snwyepzhza36 Binkqqars64 Encounters DateTypeDepartmentCare DoamRqvxzenneml36/01/2025 10:34 PM EDT - 04/04/2025 1:15 AM EDTEmergency [facility] [address] [place] [address] Jim Ram MD Fall, initial [...] as a part of a household?No3ChildcareAnswerDate Recorded WfabbkddgCpfrvzx83/12/2019EmploymentAnswerDate RecordedEmploymentUnknown 11/12/2018Hunger ScreeningAnswerDate RecordedWithin the past 12 months we worried whether our food would run out before we got money to buy more.Never True04/03/2025Within the past 12 months the food we bought just didn't last and we didn't have money to get more.Never True04/03/2025Purpose - LifeAnswerDate RecordedPurpose and direction in sittVbwaigf84/11/2021ex and Gender Information ValueDate RecordedSex Assigned at BirthNot on fileLegal WmjTbak6001/06/2015 11:28 AM EDTGender IdentityNot on fileSexual OrientationNot on file Last Filed Vital Signs Vital SignReadingTime TakenCommentsBlood Cdjyxnah59/7104/04/2025 1:15 AM EDT Wrbgo462704/04/2025 1:15 AM DJAYhmjkazjbcl56.6 ??C (97.8 ??F)04/03/2025 10:39 PM EDTRespiratory Dcxl892906/04/2024 1:15 AM EDTOxygen Cyebwmrsss21%04/04/2025 1:15 AM EDTInhaled Oxygen Concentration--Bqiaxc48.8 kg (165 lb)04/03/2025 10:39 PM ADIFfizui314.9 cm (3' 11.99 )05/13/2023 11:06 AM ESTBody Mass Index50.37 05/13/2023 11:06 AM EST Plan of Treatment Health MaintenanceDue DateLast DoneCommentsDepression Welprufgk34/13/1968 DTaP,Tdap and Td Vaccines (1 - Tdap)1974RSV ( or age 60+ yrs) (1 - Risk 50-74 years 1-dose series)2005Zoster (Shingles) Vaccine (1 of 2) 2005Fall Risk Gynudqcjs53/13/2021Tobacco Lmapeeeue88/11/2024OVID-19 Vaccine ( season)/, 06/28/2020, 06/07/2020 Influenza Ojbsdlb0402/01/2025dult BMI Flnpetjea73/5Colonoscopy Goals GoalPatient Goal TypeAssociated ProblemsRecent ProgressPatient-Stated?Author home Mary Desouza RN Note: Evaluation of progress towards goal: return to [facility] Medical Devices ImplantedTypeAreaManufacturerDevice IdentifierShelf Expiration DateModel / Serial / LotPlate Bn 194mm 8 Hl Precnt Lmt Cntct Tpr Hd Lcp Cmbn - [id number] Implanted:Qty: 1 on 04/04/2023 by [facility]lin [facility]: ArmDEPBig Box Overstocks [id number] / / Screw Bn 26mm 3.5mm 2[address] Lck Strdr Cncl Ss T15 Ft Ns Sm Rpl [id number]+Special [id number] - [id number] Implanted:Qty: 4 on 04/04/2023 by [facility]lin [facility]asley MD at [facility]: [employer] InternationalDEPBig Box Overstocks [id number] / / Screw Bn 28mm 3.5mm [address] Lck Strdr Cncl Ss T15 Ft Ns Sm Rpl [id number]+Special [id number] - [id number] Implanted:Qty: 1 on 04/04/2023 by [facility]lin Beasley MD at [facility]: [employer] [id number] / / Screw Bn 30mm 3.5mm 2[address] Lck Strdr Cncl Ss T15 Ft Ns Sm Rpl [id number] - [id number] Implanted:Qty: 2 on 04/04/2023 by Orlin Beasley MD at [facility]: ArmDEPMWI SYNTHES [id number] / / Screw Bn 24mm 3.5mm [address] Lp Hd Sm Hex Sckt [place] Ss 2.5mm Rpl Special [id number] - [id number] Implanted:Qty: 1 on 04/04/2023 by Orlin Beasley MD at [facility]: [employer]ys[employer] [id number] / / Screw Bn 28mm 3.5mm [address] Lp Sm Hex [place] Ss Ns Rpl [id number] - [id number] Implanted:Qty: 2 on 04/04/2023 by Orlin Beasley MD at [facility]: [employer] [id number] / / Screw Bn 32mm 3.5mm [address] Lp Sm Hex [place] Ss Ns Rpl [id number] - [id number] Implanted:Qty: 1 on 04/04/2023 by Orlin Beasley MD at [facility]: HappyshopPBig [employer] Overst[employer] [id number] / / Screw Bn 22mm 2.7mm [address] Strdr [place] Ss Ped T8 Ns [place] - [id number] Implanted:Qty: 1 on 04/04/2023 by Orlin Beasley MD at [facility]: [employer] [id number] / / Screw Bn 24mm 2.[address] Strdr [place] Ss Ped T8 Ns [place] - [id number] Implanted:Qty: 1 on 04/04/2023 by [facility]lin Beasley MD at [facility]: [employer] [id number] / / Procedures Procedure NamePriorityDate/TimeAssociated DiagnosisCommentsCT ABDOMEN AND PELVIS WO ZNWRGCLU08/01/2025 11:[address] CHEST WO VSIGIFUN90/01/2025 11:[address] CERVICAL SPINE WO SLTGPPCJ09/01/2025 11:[address] BRAIN WO HZESGNBI50/01/2025 11:22 PM EDT from Last 3 Months [...] (Latest Code Status on File) Date ActivatedDate IedihrgwhqzOsggwnkt77/31/2023 8:26 PM04/05/2023 8:13 PM * Full Code Date ActivatedDate InactivatedComments3/ 10:43 AM04/02/2023 9:20 AM Care Teams Team MemberRelationshipSpecialtyStart DateEnd Date Roland Mott DO [address] [facility] [place] [address] PCP - GeneralFamily Szjxotbj77/1/23
[2025-06-01 04:04] LABS: Hematocrit 29.3 % (42.0-54.0); Hemoglobin 9.8 g/dL (14.0-18.0); Immature Granulocytes Abs Auto 0.09 10^3/uL (0.00-0.03); Immature Granulocytes Pct Auto 1.1 % (0.0-0.5); Lymphocytes Absolute Auto 0.7 10^3/uL (1.2-3.8); Mean Corpuscular HGB Conc 33.4 g/dL (29.9-35.2); Mean Corpuscular Hemoglobin 29.7 pg (25.9-34.0); Mean Corpuscular Volume 88.8 fL (80.0-94.0); Platelet Count 131 10^3/uL (150-450); Red Blood Count 3.30 10^6/uL (4.70-6.10); White Blood Count 8.0 10^3/uL (4.0-11.0)
[2025-06-01 04:12] LABS: Alanine Aminotransferase 25 U/L (16-63); Albumin Globulin Ratio 1.1; Albumin Level 3.1 g/dL (3.4-5.0); Alkaline Phosphatase 131 U/L (46-116); Anion Gap 10.8; Aspartate Amino Transferase 21 U/L (15-37); Blood Urea Nitrogen 57.0 mg/dL (7.0-18.0); Calcium 7.4 mg/dL (8.5-10.1); Carbon Dioxide 27.0 mmol/L (21.0-32.0); Chloride 102 mmol/L (98-107); Estimated GFR (African America >60 (>=60 mL/min/1.73m^2); Estimated GFR (Non-African Ame >60 (>=60 mL/min/1.73m^2); Globulin 2.8 g/dL; Glucose 122 mg/dL (74-106); Lipase 40.0 U/L (16.0-77.0); Potassium 3.8 mmol/L (3.5-5.1); Sodium 136 mmol/L (136-145); Total Protein 5.9 g/dL (6.4-8.2)
[2025-06-01] MEDS: PANTOPRAZOLE SODIUM 40 MG VIAL IV (05:19)
[2025-06-01] MEDS: CALCIUM GLUCONATE 1,000 MG/10 ML VIAL 1000 MG IVP (05:19)
[2025-06-01 06:34] VITALS: BP 120/71; PULSE 94; O2SAT 96
[2025-06-01 08:05] VITALS: BP 99/62; PULSE 88; O2SAT 98
== END 2025-06-01 08:39 | disposition short-term general hospital (02) ==
PROVIDERS: Emergency Provider Emergency Medicine; PCP Family Medicine
DX: K92.2 Gastrointestinal hemorrhage, unspecified (principal); F79 Unspecified intellectual disabilities
CPT/HCPCS: 36415; 80048; 80053; 83605; 83690; 85025; 86850; 86900; 86901; 96361; 96374; 96375; 99285; G0328; J0612; J2405; J3490